=== PATIENT | female | born 1970 | race Caucasian/White ===

== ENCOUNTER 2019-11-15 08:38 | Emergency (ER) | payer SELFPAY ==
[2019-11-15 08:40] VITALS: BP 178/102; PULSE 83; RESP 18; O2SAT 96; BMI 21.5
--- NOTE | 2019-11-15 08:45 | ED_ITS ---
Entered by Jessica Mckenna, acting as scribe for Cheryl Kline MD Nov 15, 2019 08:38 HPI - Back Pain/Injury General: Chief Complaint: Back Pain/Injury Stated Complaint: Back pain Time Seen by Provider: 11/15/19 08:40 Source: patient Mode of arrival: ambulatory Limitations: physical limitation History of Present Illness: HPI Narrative: 49 yo female presents with back pain. pt states this started today while bending and walking at work. pt has a hx of back pain. pt states there is a knot on my spine. pt states walking makes this worse and nothing makes this better. MD elicited complaint: back pain Pertinent past history: prior back pain Timing: constant Severity: moderate Quality: sharp and spasming Location: lumbar spine (knot noted) Radiation: other (R leg) Exacerbating factors: movement and walking Relieving factors: none Context: while lifting Associated symptoms: Reports difficulty walking; Deny abdominal pain, chills, dysuria, fever(s), nausea or vomiting Treatments prior to arrival: heat therapy Work related injury: No Review of Systems Const: Denies: fever, chills, body aches or change in appetite Eyes: Denies: blurry vision or eye discomfort ENMT: Denies: throat pain or dental pain Card: Denies: chest pain Resp: Denies: shortness of breath GI: Denies: abdominal pain, nausea, vomiting or diarrhea : Denies: painful urination Musc: Denies: neck pain Skin/Breast: Denies: rash Neuro: Reports: difficulty walking Psych: Denies: depression Chavo/Lymph: Denies: easy bruising All/Imm: Denies: hives PFSH ED PFSH: Social History Smoking and tobacco status: current every day smoker Physical Exam Const: COMMON NORMALS: no apparent distress, oriented x3 and healthy appearing HENMT: COMMON NORMALS: normocephalic and head/scalp atraumatic HEAD & SCALP: normocephalic and atraumatic Eye: COMMON NORMALS: PERRL and EOMs intact bilaterally PUPIL: Yes PERRL Neck/C-Spine: COMMON NORMALS: full ROM and supple Chest: COMMONS NORMALS: inspection of chest normal and palpation of chest normal Resp: COMMON NORMALS: normal respiratory effort, no retractions, no use of accessory muscles and clear to auscultation bilaterally AUSCULTATION: clear to auscultation bilaterally Cardio: COMMON NORMALS: regular rate, regular rhythm and no murmurs RATE: regular rate RHYTHM: regular rhythm GI: COMMON NORMALS: normal to inspection, nondistended, normoactive bowel sounds, soft to palpation, non-tender and no masses PALPATION: Yes soft Back/Pelvis: OTHER: Tenderness to right lower lumbar region. No midline tenderness. Neuro: COMMON NORMALS: oriented x3, moves all extremities and no focal motor deficits Psych: COMMON NORMALS: mental status grossly normal, thought process normal and cooperative THOUGHT PROCESS: normal thought process Skin: COMMON NORMALS: no rashes or lesions noted and no wounds GENERAL SKIN EXAM: no rashes or lesions noted Course Vital Signs: Vital signs: Vital Signs Pulse Rate 77 11/15/19 09:35 Respiratory Rate 18 11/15/19 09:35 Blood Pressure 133/79 11/15/19 09:35 Pulse Oximetry 93 11/15/19 09:35 MDM - Back Pain/Injury MDM Narrative: Medical decision making narrative: Patient presents with low back pain is likely muscular in origin. Patient is point tender over right lower back. Patient has no midline tenderness. Patient has no signs of epidural abscess or cord compression. Patient given steroids here and prescribed Naprosyn and Robaxin for home and is to ice. Patient is to follow-up with primary care doctor in 3 to 5 days. Discharge Plan Discharge Patient Disposition: Home, Self-Care Clinical Impression: Lumbar back pain Condition: Stable Prescriptions: New Robaxin-750 750 mg tablet 750 mg PO Q6H Qty: 30 RF: 0 EC-Naprosyn 500 mg tablet,delayed release (DR/EC) 500 mg PO BID PRN (Reason: pain) Qty: 20 RF: 0 Discharge Orders: Discharge Order (Routine); Ordered 11/15/19 Ordered By: Cheryl Kline Discharge Diet: Advance as tolerated Discharge Activity: Resume usual activity Patient Instructions: Back Pain (ED) Discharge Date/Time: 11/15/19 09:39 Coding Level of Care Code ED Slot Shift Manager for Chg Fwd Exam Comprehensive The documentation recorded by the Bala castro Bridget Annette, accurately reflects the service I personally performed and the decisions made by Raisa obregon Korby, MD Nov 15, 2019 08:38
--- NOTE | 2019-11-15 08:47 | XR_ITS ---
WS: [id number] XR lumbar spine 2-3V* [id number] REASON FOR EXAM: injury FINDINGS: Degenerated disc changes L5-S1. The vertebral bodies are normal there is no fractures or di slocations seen. No evidence of spondylolysis or spondylolisthesis. XR/XR lumbar spine 2-3V* [id number] IMPRESSION: Degenerated disc changes L5-S1. There is marked fecal stasis throughout the colon.
--- NOTE | 2019-11-15 08:51 | PC.NURSE ---
Patient presents to ER for acute onset of back pain. States she has a history of DDD in her back as well as sciatica. Pain started suddenly this morning with shooting radiation into the right leg. Pain currently rated 10/10. Patient denies any injury or history of back surgery. States she has had injections in the back but it has been >10 years ago.
[2019-11-15 08:57] VITALS: RESP 21
[2019-11-15] MEDS: morphine 4 mg/mL SDV 1 mL IM (08:57)
[2019-11-15] MEDS: dexamethasone 10 mg/mL INJ IM (08:57)
[2019-11-15 09:35] VITALS: BP 133/79; PULSE 77; RESP 18; O2SAT 93
== END 2019-11-15 09:39 | disposition home or self-care (01) ==
PROVIDERS: Emergency Provider Emergency Medicine
DX: M54.5 Low back pain (principal); F17.200 Nicotine dependence, unspecified, uncomplicated
CPT/HCPCS: 72100; 96372; 99281; 99283; J1100; J2270

== ENCOUNTER 2020-05-18 13:16 | Emergency (ER) | payer SELFPAY ==
[2020-05-18 13:22] VITALS: BP 156/78; PULSE 82; RESP 18; TEMP 36.7; O2SAT 97; BMI 24.8
--- NOTE | 2020-05-18 14:48 | ED_ITS ---
HPI - Skin/Abscess/Foreign Bdy General: Chief complaint: Skin/Abscess/Foreign Body Stated complaint: BITE ON HEAD? Time Seen by Provider: 05/18/20 14:12 Source: patient Mode of arrival: ambulatory Limitations: no limitations History of Present Illness: HPI narrative: Patient is a 49-year-old female presents to ED today with complaint of left-sided facial pain and swelling. Stephanie varela tells me approximately 5 days ago she noticed a bump to the top of her left forehead/scalp. Patient states over the past few days she has then noticed swelling above her left eye, left-sided facial pain, and a swollen lymph node in front of her left ear. She is not complaining of pain inside of her ear, discharge, tinnitus, hearing loss. She does not complain of painful eye movements, visual changes/loss, headache, neck pain, facial drooping. She has not been running fevers. She reports no previous history of staph/MRSA. Associated symptoms: Deny chills, fever(s) or nausea Review of Systems Const: Denies: fever(s), chills, body aches, fatigue or malaise Eyes: Reports: other (swelling L superior orbital region); Denies: change in vision, blurry vision, photophobia, eye discomfort, eye discharge, floaters or seeing flashes ENMT: Reports: other ( knot in front of L ear); Denies: throat pain, enlarged tonsils, odynophagia, swelling of lips/tongue, dental pain, ear or mastoid pain, ear discharge, change in hearing, tinnitus, disequilibrium or nasal congestion Card: Denies: chest pain Resp: Denies: dyspnea GI: Denies: nausea Musc: Denies: neck pain Skin/Breast: Reports: new lesions (L forehead) Neuro: Denies: headache(s), numbness in extremities, weakness in extremities or sensory changes PFSH ED PFSH: Social History Smoking and tobacco status: current every day smoker Physical Exam Const: COMMON NORMALS: no acute distress, average body habitus, patient oriented x3, healthy appearing, alert and well nourished GENERAL APPEARANCE: cooperative and in distress (appears uncomfortable) ORIENTATION/CONSCIOUSNESS: Yes oriented to person, Yes oriented to place and Yes oriented to time HENMT: COMMON NORMALS: hearing grossly normal bilaterally, external ears normal (apart from one swollen lymph node), EAC's normal, TM's normal bilaterally, Normal external nose present, Normal nasal mucous membranes and turbinates present, moist oral mucous membranes, oropharynx normal, dentition normal and gingiva normal HEAD IMAGES: 1. small 1.5 erythematous indurated sore/early abscess formation FACE & SINUS: sinuses nontender and face symmetric; no sinus tenderness NOSE: Normal external nose present, Normal nasal mucous membranes and turbinates present and No nasal discharge present EXTERNAL EAR: Yes external ears normal (apart from one swollen lymph node), Yes mastoids normal and Yes periauricular adenopathy EXTERNAL AUDITORY CANAL: EAC's normal TYMPANIC MEMBRANE: TM's normal bilaterally and other (single L pre-auricular lymph node swollen) MOUTH: Normal oral and palatal mucosa present, lip normal and tongue normal THROAT: posterior oropharynx normal, tonsils normal and uvula midline OTHER: patient has TTP of L forehead and L maxillary region Eye: COMMON NORMALS: Equal, round and reactive pupils present, EOMs intact bilaterally, conjunctivae normal and no scleral icterus GENERAL EYE: normal light reflex VISUAL ACUITY: Yes acuity normal VISUAL JOHNSON: No peripheral vision loss CONJUNCTIVA: Yes conjunctivae normal PUPIL: Yes Equal, round and reactive pupils present DIRECT OPHTHALMOSCOPY: Yes normal light reflex OTHER: pt has full painless EOMs; she has soft tissue swelling to L superior orbital region; area does not appear cellulitic at this time; there is no redness/warmth to area Neck/C-Spine: COMMON NORMALS: full ROM, no lymphadenopathy and no meningeal signs Neuro: RUBENS COMA SCALE: document GCS findings [place] coma scale eye opening: Spontaneous [place] coma scale verbal response: Orientated [place] coma scale motor response: Obey commands [place] coma scale total score: 15 COMMON NORMALS: patient oriented x3, CN's II-XII intact bilaterally, moves all extremities, no focal motor deficits and no sensory deficits noted SENSORIUM/ORIENTATION: Yes alert, Yes oriented to person, Yes oriented to place and Yes oriented to time MENINGEAL SIGNS: Yes no meningeal signs CRANIAL NERVES: Yes CN normal except as noted OTHER: no facial nerve palsy; no gaze palsy Course Vital Signs: Vital signs: Vital Signs Temperature 98.1 F 05/18/20 13:22 Pulse Rate 64 05/18/20 16:00 Respiratory Rate 18 05/18/20 16:00 Blood Pressure 149/77 08/19/20 16:00 Pulse Oximetry 97 05/18/20 13:22 MDM - Skin/Abscess/Foreign Bdy MDM Narrative: Medical decision making narrative: pt appears to have sore/early abscess formation to her L upper forehead that for whatever reason has spread downward; she has swelling to L superior orbit but no signs/symptoms of a preseptal or septal cellulitis; she has nerve like tenderness throughout L side of face w/o any neurological deficits/nerve palsy; lesion is not suspicious for shingles; her solitary pre-auricular lymph node is not accompanied by any otic pain, discharge, swelling, hearing loss, tinnitus, etc; at this time I do not feel labs would be overly beneficial in helping diagnose this; emergent imaging would be unlikely to change care; pt given IM abx here and will be placed on Clindamycin and pain medications at home; strict return to ED precautions given Discharge Plan Discharge Patient Disposition: Home Clinical Impression: Cellulitis and abscess of face Condition: Stable Prescriptions: New clindamycin HCl 300 mg capsule 300 mg PO Q6H 7 Days Qty: 28 RF: 0 hydrocodone-acetaminophen 5-325 mg tablet 1 tab PO Q6H PRN (Reason: pain) Qty: 14 RF: 0 No Action Robaxin-750 750 mg tablet 750 mg PO Q6H Qty: 30 RF: 0 EC-Naprosyn 500 mg tablet,delayed release (DR/EC) 500 mg PO BID PRN (Reason: pain) Qty: 20 RF: 0 Discharge Orders: Discharge Order (Routine); Ordered 05/18/20 Ordered By: Hien Crocker Activity Restrictions/Additional Instructions: As discussed begin your medications immediately. You need to return to the emergency department on Saturday if symptoms continue to worsen. You need to return sooner for any firmness surrounding the left eye, visual changes, painful movement of your eyes, facial drooping, worsening swelling, worsening redness/heat, or any other concerns you may have. Discharge Date/Time: 05/18/20 16:00 Coding Level of Care Code ED Multiple Drill Operator for Andreg Fwd Exam Detailed
[2020-05-18] MEDS: clindamycin 150 mg/mL SDV 6 mL 600 MG IM (15:38)
[2020-05-18] MEDS: cefTRIAXone 1,000 MG, lidocaine 1% 2.1 ML in SYRINGE 1 EACH 1 MG IM (15:39)
[2020-05-18 16:00] VITALS: BP 149/77; PULSE 64; RESP 18
== END 2020-05-18 16:00 | disposition home or self-care (01) ==
PROVIDERS: Emergency Provider Physician Assistant
DX: L02.01 Cutaneous abscess of face (principal); L03.211 Cellulitis of face; F17.210 Nicotine dependence, cigarettes, uncomplicated
CPT/HCPCS: 12345; 96365; 96372; 99281; 99283; J0696; J3490

== ENCOUNTER 2020-08-02 16:13 | Emergency (ER) | payer SELFPAY ==
[2020-08-02 16:15] VITALS: BP 167/83; PULSE 78; RESP 18; TEMP 36.8; O2SAT 97; BMI 21.1
--- NOTE | 2020-08-02 16:52 | CTR_ITS ---
PROCEDURE INFORMATION: Exam: CT Abdomen And Pelvis With Contrast Exam date and time: 08/02/2020 5:09 PM Age: 49 years old Clinical indication: Nausea and vomiting; Abdominal pain; Prior surgery; Surgery type: Appy, hyst, , exploratory; Additional info: Abd pain TECHNIQUE: Imaging protocol: Computed tomography of the abdomen and pelvis with intravenous contrast. Radiation optimization: All CT scans at this facility use at least one of these dose optimization techniques: automated exposure control; mA and/or kV adjustment per patient size (includes targeted exams where dose is matched to clinical indication); or iterative reconstruction. Contrast material: OMNI 300; Contrast volume: 75 ml; Contrast route: INTRAVENOUS (IV); COMPARISON: CT abdomen pelvis w con* [id number] 07/17/2015 1:42 PM RADIATION DOSE METRICS: Total DLP (mGy-cm): 245.62 FINDINGS: Liver: Unremarkable.No mass. Gallbladder and bile ducts: Normal. No calcified stones. No ductal dilation. Pancreas: Normal. No ductal dilation. Spleen: Normal. No splenomegaly. Adrenal glands: Normal. No mass. Kidneys and ureters: There is no evidence of hydronephrosis. There is no evidence of renal calcifications. Stomach and bowel: There is diffuse small bowel wall thickening, consistent with infectious, ischemic, or inflammatory enteritis. Moderate diverticulosis is present in the distal colon. The wall of the distal colon is thickened but collapsed. This appearance may reflect lack of distention however mild colitis cannot be excluded. Appendix: There has been an appendectomy. Intraperitoneal space: Unremarkable. No free air. No significant fluid collection. Vasculature: The aorta demonstrates mild atherosclerotic calcification. Lymph nodes: Unremarkable.No enlarged lymph nodes. Urinary bladder: There is nonspecific bladder wall thickening. This may be related to cystitis versus incomplete distention. Reproductive: There has been a hysterectomy. Bones/joints: Unremarkable. No acute fracture. Soft tissues: Unremarkable. CT/CT abdomen pelvis w con* [id number] IMPRESSION: 1. There is nonspecific bladder wall thickening. This may be related to cystitis versus incomplete distention. 2. There is diffuse small bowel wall thickening, consistent with infectious, ischemic, or inflammatory enteritis. 3. The wall of the distal colon is thickened but collapsed. This appearance may reflect lack of distention however mild colitis cannot be excluded. Radiation Dose CTDIVOL = (mGy): DLP = 245.62 (mGy-cm)
--- NOTE | 2020-08-02 17:04 | W.ED.ABDPA2 ---
Documented by User: Bart Enciso DO 08/06/20 10:03 HPI - Abdominal Pain General: Chief Complaint: Abdominal Pain Stated Complaint: stabbing pain in r side Time Seen by Provider: 08/02/20 16:47 History of Present Illness: HPI narrative: 49-year-old female comes in complaining of right-sided flank pain radiating into her back and down into her suprapubic area is been going on for 4 days. She is at nausea vomiting associated with it. Some dysuria no hematuria. She denies any dysuria she denies any diarrhea. She has no history of renal stone she has had frequent UTIs in the past MD elicited complaint: abdominal pain Pertinent past history: past UTI Onset (ago): hour(s) Pain Consistency: constant Location: R flank Quality: cramping and stabbing Radiation: suprapubic Migration to: suprapubic Relieving factors: nothing Associated Symptoms: Reports GI cramping and dysuria; Denies anorexia, belching, bloating, change in bowel habits, change in stool character, chills, coffee ground emesis, constipation, diarrhea, dyspepsia, excessive flatus, fever(s), heartburn, hematochezia, hematuria, hematemesis, fecal incontinence, loose stools, melena, nausea, poor appetite, syncope and vomiting Review of Systems Const: Denies: fever(s) or chills ENMT: Denies: throat pain, ear or mastoid pain, nasal discharge or nasal congestion Card: Denies: syncope Resp: Denies: dyspnea, productive cough or non-productive cough GI: Reports: GI cramping; Denies: nausea, vomiting, hematemesis, coffee ground emesis, heartburn, diarrhea, constipation, bloating, belching, excessive flatus, fecal incontinence, change in bowel habits, change in stool character, hematochezia or melena : Reports: dysuria; Denies: hematuria Skin/Breast: Denies: rash or pruritus PFSH ED PFSH: Surgical History H/O: hysterectomy S/P appendectomy Social History Smoking and tobacco status: current every day smoker Physical Exam Const: COMMON NORMALS: no acute distress GENERAL APPEARANCE: cooperative and comfortable ORIENTATION/CONSCIOUSNESS: Yes awake, Yes oriented to person, Yes oriented to place and Yes oriented to time HENMT: COMMON NORMALS: normocephalic, atraumatic and hearing grossly normal bilaterally HEAD & SCALP: normocephalic and atraumatic Neck/C-Spine: COMMON NORMALS: no JVD Resp: COMMON NORMALS: normal respiratory effort, No retractions, No use of accessory muscles and clear to auscultation bilaterally AUSCULTATION: clear to auscultation bilaterally Cardio: COMMON NORMALS: no JVD, regular rate, regular rhythm and No murmurs present (Cardio) RATE: regular rate RHYTHM: regular rhythm GI: COMMON NORMALS: Soft to palpation and No hepatosplenomegaly present AUSCULTATION: Yes normoactive bowel sounds PALPATION: Yes Soft to palpation, Yes Tenderness to palpation present (GI) Details: RLQ, No Guarding due to palpation present (GI) and Yes No hepatosplenomegaly present Extremity: COMMON NORMALS: normal to inspection, capillary refill normal, no clubbing, cyanosis or edema, no calf tenderness and no pedal edema Neuro: SENSORIUM/ORIENTATION: Yes oriented to person, Yes oriented to place and Yes oriented to time Skin: COMMON NORMALS: no rashes or lesions noted GENERAL SKIN EXAM: no rashes or lesions noted Course Vital Signs: Vital signs: Vital Signs Temperature 98.2 F 08/02/20 16:15 Pulse Rate 68 08/02/20 21:40 Respiratory Rate 18 08/02/20 21:40 Blood Pressure 106/71 08/02/20 21:40 Pulse Oximetry 99 08/02/20 21:40 MDM - Abdominal Pain MDM Narrative: Medical decision making narrative: Care signed out to Dr. Ochoa at change of shift. Lab Data: Labs: Lab Results 08/02/20 08/02/20 08/02/20 Range/Units 17:03 17:03 17:07 WBC 7.3 (4.0-10.0) 10^3/ uL RBC 4.11 (4.1-5.3) 10^6/u L Hgb 14.0 (11.5-15.3) g/dL Hct 41.9 (37.0-47.0) % MCV 101.9 H (81-99) fL MCH 34.1 H (28.0-34.0) pg MCHC 33.4 (30.0-36.0) g/dL RDW 12.2 (12.1-15.1) % Plt Count 314 (130-400) 10^3/c mm MPV 9.8 (7.4-10.4) fL Neut % (Auto) 42.3 % Lymph % (Auto) 47.1 % [place] % (Auto) 6.9 % Eos % (Auto) 3.0 % Baso % (Auto) 0.4 % Neut # (Auto) 3.09 (1.8-7.7) 10^3/u L Lymph # (Auto) 3.4 (0.8-4.8) 10^3/u L [place] # (Auto) 0.5 (0.2-0.9) 10^3/u L Eos # (Auto) 0.2 (0.0-0.8) 10^3/u L Baso # (Auto) 0.0 (0.0-0.1) 10^3/u L Nucleated RBC % (a uto) 0 % Nucleated RBCs # 0.0 /100WBC Sodium (136-145) mmol/L Potassium (3.5-5.1) mmol/L Chloride (98-107) mmol/L Carbon Dioxide (22-29) mmol/L Anion Gap (5-19) BUN (6-20) mg/dL Creatinine (0.5-0.9) mg/dL GFR Calculation (90-130) mL/min Glucose (65-115) mg/dL Calculated Osmolal ity (285-295) mOsm/k g Lactic Acid (0.5-2.2) mmol/L Calcium (8.5-10.5) mg/dL Total Bilirubin (0.15-1.2) mg/dL AST (0-32) U/L ALT (0-33) U/L Alkaline Phosphata se (35-105) IU/L Total Protein (6.6-8.7) g/dL Albumin (3.5-5.2) g/dL Globulin (1.3-4.6) g/dL Lipase (13-60) U/L HCG, Qual Negative (Negative) Urine Color Yellow (Yellow) Urine Appearance Clear (CLEAR) Urine pH 6 (5-7) Ur Specific Gravit y 1.020 (1.005-1.030) Urine Protein Neg (Negative) Urine Glucose (UA) Norm (Normal) Urine Ketones Negative (Negative) Urine Blood Neg (Negative) Urine Nitrate Negative (Negative) Urine Bilirubin Neg (Negative) Urine Urobilinogen Neg (Negative) mg/dL Ur Leukocyte [place] a[place] Negative (Negative) [place] 08/02/20 08/02/20 08/02/20 Range/Units 17:07 18:25 19:56 WBC (4.0-10.0) 10^3/ uL RBC (4.1-5.3) 10^6/u L Hgb (11.5-15.3) g/dL Hct (37.0-47.0) % MCV (81-99) fL MCH (28.0-34.0) pg MCHC (30.0-36.0) g/dL RDW (12.1-15.1) % Plt Count (130-400) 10^3/c mm MPV (7.4-10.4) fL Neut % (Auto) % Lymph % (Auto) % [place] % (Auto) % Eos % (Auto) % Baso % (Auto) % Neut # (Auto) (1.8-7.7) 10^3/u L Lymph # (Auto) (0.8-4.8) 10^3/u L [place] # (Auto) (0.2-0.9) 10^3/u L Eos # (Auto) (0.0-0.8) 10^3/u L Baso # (Auto) (0.0-0.1) 10^3/u L Nucleated RBC % (a uto) % Nucleated RBCs # /100WBC Sodium 140 (136-145) mmol/L Potassium 4.0 (3.5-5.1) mmol/L Chloride 105 (98-107) mmol/L Carbon Dioxide 27 (22-29) mmol/L Anion Gap 12.0 (5-19) BUN 15 (6-20) mg/dL Creatinine 0.8 (0.5-0.9) mg/dL GFR Calculation 76.2 L (90-130) mL/min Glucose 89 (65-115) mg/dL Calculated Osmolal ity 290 (285-295) mOsm/k g Lactic Acid 0.5 (0.5-2.2) mmol/L Calcium 9.6 (8.5-10.5) mg/dL Total Bilirubin 0.3 (0.15-1.2) mg/dL AST 13 (0-32) U/L ALT 8 (0-33) U/L Alkaline Phosphata se 86 (35-105) IU/L Total Protein 7.3 (6.6-8.7) g/dL Albumin 4.9 (3.5-5.2) g/dL Globulin 2.4 (1.3-4.6) g/dL Lipase 153 H (13-60) U/L HCG, Qual (Negative) Urine Color (Yellow) Urine Appearance (CLEAR) Urine pH (5-7) Ur Specific Gravit y (1.005-1.030) Urine Protein (Negative) Urine Glucose (UA) (Normal) Urine Ketones (Negative) Urine Blood (Negative) Urine Nitrate (Negative) Urine Bilirubin (Negative) Urine Urobilinogen (Negative) mg/dL Ur Leukocyte [place] ase (Negative) [place] Cancelled Discharge Plan Discharge Patient Disposition: Home Clinical Impression: Abdominal pain Qualifiers: Abdominal location: generalized Qualified Code(s): R10.84 - Generalized abdominal pain Condition: Stable Prescriptions: New lactulose 10 gram/15 mL solution 10 gm PO DAILY PRN (Reason: constipation) Qty: 237 RF: 0 No Action Celestina's wort 300 mg Tablet 300 mg PO DAILY RF: 0 5-Htp L-Theanine 1 tab PO DAILY RF: 0 Tylenol Extra Strength 500 mg Tablet 1,000 - 2,000 mg PO PRN RF: 0 Discharge Orders: Discharge Order (Routine); Ordered 08/02/20 Ordered By: Nettie Means Discharge Diet: Clear Liquid Discharge Activity: Limit activity as instructed Patient Instructions: Abdominal Pain (ED) Activity Restrictions/Additional Instructions: Please return to the ER immediately for any of the signs or symptoms listed on your discharge instruction sheets, worsening/changing of your symptoms, you are not getting better as quickly as expected, or for ANY other cause or concerns. I have offered to admit you to the hospital to monitor you further for possible developing abdominal problem that could require surgery or even be life-threatening but you have declined. So if your symptoms persist for more than another 8 to 12 hours please return here immediately for recheck and for further evaluation and care. Follow a clear liquid diet at home and advance it as your pain resolves back to your normal diet. Return immediately for fever, vomiting, blood in your stools, increased pain or for any other cause for concern. Discharge Date/Time: 08/02/20 22:54 Sign Out Sign Out Data: Patient Sign Out occurred on 08/02/20 at 18:41. Patient's care was discussed, and care was transferred from to Nettie Means. Coding Level of Care Code ED Radio Station Audio Engineer for Chg Fwd Exam Comprehensive Documented by User: Nettie Means 08/02/20 20:27 HPI - Abdominal Pain General: Chief Complaint: Abdominal Pain Stated Complaint: stabbing pain in r side Time Seen by Provider: 08/02/20 16:47 PFSH ED PFSH: Surgical History H/O: hysterectomy S/P appendectomy Social History Smoking and tobacco status: current every day smoker Course Vital Signs: Vital signs: Vital Signs Temperature 98.2 F 08/02/20 16:15 Pulse Rate 68 08/02/20 21:40 Respiratory Rate 18 08/02/20 21:40 Blood Pressure 106/71 08/02/20 21:40 Pulse Oximetry 99 08/02/20 21:40 MDM - Abdominal Pain MDM Narrative: Medical decision making narrative: 191 -Case turned over to me at change of shift from Dr. Enciso. Please see his note for his history, physical exam and medical decision-making notes. Patient tells me she has had pain for the past 4 days but the past 2 days her pain is become constant. Prior to that it was intermittent. Now it has become constant and waxes and wanes in intensity. Is primarily along the right side of her abdomen. She had associated nausea and vomiting. To this point her labs have returned which show no evidence of elevated white count and only a minimally elevated lipase. CT scan shows nonspecific bladder wall thickening, diffuse small bowel wall thickening of uncertain etiology and possible distal colon thickening. On exam the patient is mildly tender diffusely without any rebound or guarding. Subjectively she complains of more pain along the right side. Patient has had an appendectomy. I am going to go ahead and add a gallbladder ultrasound at this time to rule out any gallbladder etiology as it is seen better with ultrasound and with CT scan. 2016 -patient is feeling better and is ready to go home. She appears as though she has enteritis but based upon lab I cannot say that she is definitively has cystitis. I will put her on Cipro and Flagyl for possible colitis but patient states her primary problem at this time is she feels like she is constipated. I will place her on lactulose, clear liquid diet and Cipro and Flagyl which should address her small bowel wall thickening as well as the possible colitis. I have recommended and offered to watch the patient overnight in the hospital but she declines. She states overall she is feeling better and wants to be discharged home. She agrees to return here in 12 hours if her symptoms have not subsided but at this time I see no signs of peritonitis on exam, she does not have pain out of proportion to exam and she has not vomited and her vital signs are stable with normal labs. Differential Diagnosis: Differential diagnosis abdominal pain: Likely abdominal pain, calculus of kidney, constipation, diverticulitis, gastroenteritis, pancreatitis and small bowel obstruction Lab Data: Attestation: I reviewed the patient's lab results. Labs: Lab Results 08/02/20 08/02/20 08/02/20 Range/Units 17:03 17:03 17:07 WBC 7.3 (4.0-10.0) 10^3/ uL RBC 4.11 (4.1-5.3) 10^6/u L Hgb 14.0 (11.5-15.3) g/dL Hct 41.9 (37.0-47.0) % MCV 101.9 H (81-99) fL MCH 34.1 H (28.0-34.0) pg MCHC 33.4 (30.0-36.0) g/dL RDW 12.2 (12.1-15.1) % Plt Count 314 (130-400) 10^3/c mm MPV 9.8 (7.4-10.4) fL Neut % (Auto) 42.3 % Lymph % (Auto) 47.1 % [place] % (Auto) 6.9 % Eos % (Auto) 3.0 % Baso % (Auto) 0.4 % Neut # (Auto) 3.09 (1.8-7.7) 10^3/u L Lymph # (Auto) 3.4 (0.8-4.8) 10^3/u L [place] # (Auto) 0.5 (0.2-0.9) 10^3/u L Eos # (Auto) 0.2 (0.0-0.8) 10^3/u L Baso # (Auto) 0.0 (0.0-0.1) 10^3/u L Nucleated RBC % (a uto) 0 % Nucleated RBCs # 0.0 /100WBC Sodium (136-145) mmol/L Potassium (3.5-5.1) mmol/L Chloride (98-107) mmol/L Carbon Dioxide (22-29) mmol/L Anion Gap (5-19) BUN (6-20) mg/dL Creatinine (0.5-0.9) mg/dL GFR Calculation (90-130) mL/min Glucose (65-115) mg/dL Calculated Osmolal ity (285-295) mOsm/k g Lactic Acid (0.5-2.2) mmol/L Calcium (8.5-10.5) mg/dL Total Bilirubin (0.15-1.2) mg/dL AST (0-32) U/L ALT (0-33) U/L Alkaline Phosphata se (35-105) IU/L Total Protein (6.6-8.7) g/dL Albumin (3.5-5.2) g/dL Globulin (1.3-4.6) g/dL Lipase (13-60) U/L HCG, Qual Negative (Negative) Urine Color Yellow (Yellow) Urine Appearance Clear (CLEAR) Urine pH 6 (5-7) Ur Specific Gravit y 1.020 (1.005-1.030) Urine Protein Neg (Negative) Urine Glucose (UA) Norm (Normal) Urine Ketones Negative (Negative) Urine Blood Neg (Negative) Urine Nitrate Negative (Negative) Urine Bilirubin Neg (Negative) Urine Urobilinogen Neg (Negative) mg/dL Ur Leukocyte [place] a[place] Negative (Negative) [place] 08/02/20 08/02/20 08/02/20 Range/Units 17:07 18:25 19:56 WBC (4.0-10.0) 10^3/ uL RBC (4.1-5.3) 10^6/u L Hgb (11.5-15.3) g/dL Hct (37.0-47.0) % MCV (81-99) fL MCH (28.0-34.0) pg MCHC (30.0-36.0) g/dL RDW (12.1-15.1) % Plt Count (130-400) 10^3/c mm MPV (7.4-10.4) fL Neut % (Auto) % Lymph % (Auto) % [place] % (Auto) % Eos % (Auto) % Baso % (Auto) % Neut # (Auto) (1.8-7.7) 10^3/u L Lymph # (Auto) (0.8-4.8) 10^3/u L [place] # (Auto) (0.2-0.9) 10^3/u L Eos # (Auto) (0.0-0.8) 10^3/u L Baso # (Auto) (0.0-0.1) 10^3/u L Nucleated RBC % (a uto) % Nucleated RBCs # /100WBC Sodium 140 (136-145) mmol/L Potassium 4.0 (3.5-5.1) mmol/L Chloride 105 (98-107) mmol/L Carbon Dioxide 27 (22-29) mmol/L Anion Gap 12.0 (5-19) BUN 15 (6-20) mg/dL Creatinine 0.8 (0.5-0.9) mg/dL GFR Calculation 76.2 L (90-130) mL/min Glucose 89 (65-115) mg/dL Calculated Osmolal ity 290 (285-295) mOsm/k g Lactic Acid 0.5 (0.5-2.2) mmol/L Calcium 9.6 (8.5-10.5) mg/dL Total Bilirubin 0.3 (0.15-1.2) mg/dL AST 13 (0-32) U/L ALT 8 (0-33) U/L Alkaline Phosphata se 86 (35-105) IU/L Total Protein 7.3 (6.6-8.7) g/dL Albumin 4.9 (3.5-5.2) g/dL Globulin 2.4 (1.3-4.6) g/dL Lipase 153 H (13-60) U/L HCG, Qual (Negative) Urine Color (Yellow) Urine Appearance (CLEAR) Urine pH (5-7) Ur Specific Gravit y (1.005-1.030) Urine Protein (Negative) Urine Glucose (UA) (Normal) Urine Ketones (Negative) Urine Blood (Negative) Urine Nitrate (Negative) Urine Bilirubin (Negative) Urine Urobilinogen (Negative) mg/dL Ur Leukocyte [place] ase (Negative) [place] Cancelled Imaging Data ^: CT Abd/Pel: Radiologist's impression: [place] [address] CT Scan Report Signed Patient: Prachi Bolanos Unit #: [id number] : 1970 Age/Sex: 49 / F ADM Date: 08/02/20 Loc: ER Room/Bed: Attending Dr: Ordering Provider/Ordering MD: Bart Enciso DO Date of Service: 08/02/20 Procedure(s): CT abdomen pelvis w con* [id number] Accession Number(s): [id number] Report Number: [id number] PROCEDURE INFORMATION: Exam: CT Abdomen And Pelvis With Contrast Exam date and time: 08/02/2020 5:09 PM Age: 49 years old Clinical indication: Nausea and vomiting; Abdominal pain; Prior surgery; Surgery type: Appy, hyst, , exploratory; Additional info: Abd pain TECHNIQUE: Imaging protocol: Computed tomography of the abdomen and pelvis with intravenous contrast. Radiation optimization: All CT scans at this facility use at least one of these dose optimization techniques: automated exposure control; mA and/or kV adjustment per patient size (includes targeted exams where dose is matched to clinical indication); or iterative reconstruction. Contrast material: OMNI 300; Contrast volume: 75 ml; Contrast route: INTRAVENOUS (IV); COMPARISON: CT abdomen pelvis w con* [id number] 07/17/2015 1:42 PM RADIATION DOSE METRICS: Total DLP (mGy-cm): 245.62 FINDINGS: Liver: Unremarkable.No mass. Gallbladder and bile ducts: Normal. No calcified stones. No ductal dilation. Pancreas: Normal. No ductal dilation. Spleen: Normal. No splenomegaly. Adrenal glands: Normal. No mass. Kidneys and ureters: There is no evidence of hydronephrosis. There is no evidence of renal calcifications. Stomach and bowel: There is diffuse small bowel wall thickening, consistent with infectious, ischemic, or inflammatory enteritis. Moderate diverticulosis is present in the distal colon. The wall of the distal colon is thickened but collapsed. This appearance may reflect lack of distention however mild colitis cannot be excluded. Appendix: There has been an appendectomy. Intraperitoneal space: Unremarkable. No free air. No significant fluid collection. Vasculature: The aorta demonstrates mild atherosclerotic calcification. Lymph nodes: Unremarkable.No enlarged lymph nodes. Urinary bladder: There is nonspecific bladder wall thickening. This may be related to cystitis versus incomplete distention. Reproductive: There has been a hysterectomy. Bones/joints: Unremarkable. No acute fracture. Soft tissues: Unremarkable. CT/CT abdomen pelvis w con* [id number] IMPRESSION: 1. There is nonspecific bladder wall thickening. This may be related to cystitis versus incomplete distention. 2. There is diffuse small bowel wall thickening, consistent with infectious, ischemic, or inflammatory enteritis. 3. The wall of the distal colon is thickened but collapsed. This appearance may reflect lack of distention however mild colitis cannot be excluded. Radiation Dose CTDIVOL = (mGy): DLP = 245.62 (mGy-cm) Dictated By: Elvie Gallego Signed By: Elvie Gallego Signed Date/Time: 08/02/201726 DD/ 24 US: My impression: Ultrasound gallbladder, tech interpretation -no acute findings. Normal gallbladder. No gallstones or sludge. No wall abnormalities. Common bile duct normal no acute findings. Discharge Plan Discharge Patient Disposition: Home Clinical Impression: Abdominal pain Qualifiers: Abdominal location: generalized Qualified Code(s): R10.84 - Generalized abdominal pain Condition: Stable Prescriptions: New lactulose 10 gram/15 mL solution 10 gm PO DAILY PRN (Reason: constipation) Qty: 237 RF: 0 No Action Celestina's wort 300 mg Tablet 300 mg PO DAILY RF: 0 5-Htp L-Theanine 1 tab PO DAILY RF: 0 Tylenol Extra Strength 500 mg Tablet 1,000 - 2,000 mg PO PRN RF: 0 Discharge Orders: Discharge Order (Routine); Ordered 08/02/20 Ordered By: Nettie Means Discharge Diet: Clear Liquid Discharge Activity: Limit activity as instructed Patient Instructions: Abdominal Pain (ED) Activity Restrictions/Additional Instructions: Please return to the ER immediately for any of the signs or symptoms listed on your discharge instruction sheets, worsening/changing of your symptoms, you are not getting better as quickly as expected, or for ANY other cause or concerns. I have offered to admit you to the hospital to monitor you further for possible developing abdominal problem that could require surgery or even be life-threatening but you have declined. So if your symptoms persist for more than another 8 to 12 hours please return here immediately for recheck and for further evaluation and care. Follow a clear liquid diet at home and advance it as your pain resolves back to your normal diet. Return immediately for fever, vomiting, blood in your stools, increased pain or for any other cause for concern. Discharge Date/Time: 08/02/20 22:54 Sign Out Sign Out Data: Patient Sign Out occurred on 08/02/20 at 18:41. Patient's care was discussed, and care was transferred from to Nettie Means. Coding Level of Care Code ED Radio Station Audio Engineer for Chris Fwagustin Exam Comprehensive
[2020-08-02 17:06] LABS: Add Urine Microscopic? NO
[2020-08-02] MEDS: iohexol 300 mg/mL 100 mL Btl IV (17:10)
[2020-08-02 17:12] LABS: Basophils % 0.4 %; Eosinophils # 0.2 10^3/uL (0.0-0.8); Hematocrit 41.9 % (37.0-47.0); Lymphocytes # 3.4 10^3/uL (0.8-4.8); Lymphocytes % 47.1 %; Mean Corpuscular HGB Conc 33.4 g/dL (30.0-36.0); Mean Corpuscular Hemoglobin 34.1 pg (28.0-34.0); Mean Corpuscular Volume 101.9 fL (81-99); Mean Platelet Volume 9.8 fL (7.4-10.4); Monocytes # 0.5 10^3/uL (0.2-0.9); Monocytes % 6.9 %; Neutrophils # 3.09 10^3/uL (1.8-7.7); Neutrophils % 42.3 %; Nucleated Red Blood Cells % 0 %; Platelet Count 314 10^3/cmm (130-400); Red Blood Count 4.11 10^6/uL (4.1-5.3); Red Cell Distribution Width 12.2 % (12.1-15.1); White Blood Count 7.3 10^3/uL (4.0-10.0)
[2020-08-02 17:15] LABS: Bilirubin Urine Neg (Negative); Blood Urine Neg (Negative); Glucose Urine UA Norm (Normal); Ketones Urine Negative (Negative); Leukocyte Esterase Urine Negative (Negative); Nitrate Urine Negative (Negative); Protein Urine Neg (Negative); Urine Appearance Clear (CLEAR); Urine Color Yellow (Yellow); Urobilinogen Urine Neg (Negative); pH Urine 6 (5-7)
[2020-08-02 17:24] VITALS: RESP 16; O2SAT 98
[2020-08-02] MEDS: morphine 4 mg/mL SDV 1 mL IVP (17:24)
[2020-08-02] MEDS: ondansetron 2 mg/ML SDV 2 mL 4 MG IVP (17:24)
[2020-08-02] MEDS: sodium chloride 0.9% 1,000 ML 999 ML IV ×2 (17:24→18:45)
[2020-08-02 17:32] LABS: Alanine Aminotransferase 8 U/L (0-33); Albumin Level 4.9 g/dL (3.5-5.2); Alkaline Phosphatase 86 IU/L (35-105); Blood Urea Nitrogen 15 mg/dL (6-20); Calcium 9.6 mg/dL (8.5-10.5); Carbon Dioxide 27 mmol/L (22-29); Chloride 105 mmol/L (98-107); Globulin 2.4 g/dL (1.3-4.6); Glomerular Filtration Rate 76.2 mL/min (90-130); Glucose 89 mg/dL (65-115); Lipase 153 U/L (13-60); Osmolality Calculated 290 mOsm/kg (285-295); Sodium 140 mmol/L (136-145); Total Bilirubin 0.3 mg/dL (0.15-1.2); Total Protein 7.3 g/dL (6.6-8.7)
[2020-08-02 18:11] LABS: Aspartate Amino Transferase 13 U/L (0-32)
[2020-08-02 19:02] LABS: Lactic Sepsis W/Reflex 0.5 mmol/L (0.5-2.2)
[2020-08-02 19:07] VITALS: BP 171/82; PULSE 67; RESP 18; O2SAT 99
--- NOTE | 2020-08-02 19:13 | US_ITS ---
WS: [id number] ABDOMINAL ULTRASOUND LIMITED REASON FOR VISIT: Pain TECHNIQUE: Grayscale and Doppler ultrasound examination of the abdomen. FINDINGS: Pancreas: No ductal dilatation, calcification, or mass. Abdominal aorta and IVC: Visualized portions are unremarkable. Liver: Liver measures 19.2 cm in length. No focal lesion identified. Gallbladder: Gallbladder wall thickness measures 0.2 mm. The gallbladder is moderately distended with no calculi identified. Right kidney: Right kidney measures 9.4 cm x 5.4 cm x 4.5 cm. No mass, calculus, or hydronephrosis. US/US gall bladder [id number] IMPRESSION: No significant right upper quadrant abnormality identified.
[2020-08-02 19:18] VITALS: RESP 17
[2020-08-02] MEDS: HYDROmorphone 1 mg/mL INJ 1 mL 0.5 MG IVP (19:18)
[2020-08-02] MEDS: ketorolac 30 mg/mL INJ 10 MG IVP (19:47)
[2020-08-02 20:06] LABS: HCG Qualitative Urine. Negative (Negative)
[2020-08-02 20:22] VITALS: BP 154/86; PULSE 63; RESP 20; O2SAT 99
[2020-08-02 21:40] VITALS: BP 106/71; PULSE 68; RESP 18; O2SAT 99
== END 2020-08-02 22:54 | disposition home or self-care (01) ==
PROVIDERS: Family Medicine; Emergency Provider Emergency Medicine
DX: R10.84 Generalized abdominal pain (principal); F17.210 Nicotine dependence, cigarettes, uncomplicated
CPT/HCPCS: 12345; 36415; 74177; 76705; 80053; 81003; 81025; 83605; 83690; 85025; 96361; 96374; 96375; 96376; 99283; 99284; J0131; J1170; J1885; J2270; J2405; J7030; Q9967

== ENCOUNTER 2020-08-03 13:03 | Emergency (ER) | payer SELFPAY ==
[2020-08-03 13:08] VITALS: BP 186/98; PULSE 90; RESP 16; TEMP 37.4; O2SAT 97; BMI 21.0
[2020-08-03 13:46] VITALS: BP 155/109; PULSE 82; RESP 16; O2SAT 98
--- NOTE | 2020-08-03 13:51 | W.ED.ABDPA2 ---
Documented by User: NORMAN Murdock 08/04/20 10:25 HPI - Abdominal Pain General: Chief Complaint: Abdominal Pain Stated Complaint: sharp ABD pain Time Seen by Provider: 08/03/20 13:48 History of Present Illness: HPI narrative: Patient is a 49-year-old female who comes to the ED with abdominal pain and nausea. Patient was seen here in the ED last night and due to patient's condition she was offered to be admitted for observation decided she would rather go home. Doctor told her to return to the ED if symptoms worsen. Patient says she had continued pain and worsening pain through the night and into today. Patient says symptoms started approximately 5 days ago. She says the pain is constant but then waxes and wanes in severity. Pain located in the right side of abdomen and radiates to right side of back. She says any p.o. intake worsens pain. Patient does state that for the past couple days she has daily hard stools and constipation. Denies any fever, chest pain, chills, shortness of breath, diarrhea, dysuria or hematuria. Associated Symptoms: Reports constipation, nausea and vomiting; Denies chills, diarrhea, dysuria, fever(s), hematochezia and hematuria Review of Systems Const: Denies: fever(s), chills or fatigue Eyes: Denies: change in vision or eye discomfort ENMT: Denies: throat pain, odynophagia, nasal discharge or nasal congestion Card: Denies: chest pain, palpitations, edema, swelling of feet/ankles, dyspnea on exertion or orthopnea Resp: Denies: dyspnea, productive cough or non-productive cough GI: Reports: abdominal pain (Right side of abdomen that radiates to right side of back.), nausea, vomiting and constipation; Denies: diarrhea or hematochezia : Denies: flank pain, dysuria or hematuria Musc: Denies: neck pain, back pain or extremity swelling Skin/Breast: Denies: rash or new lesions Neuro: Denies: headache(s), numbness in extremities or weakness in extremities PFS ED PFSH: Surgical History H/O: hysterectomy S/P appendectomy Social History Smoking and tobacco status: current every day smoker Physical Exam Const: COMMON NORMALS: patient oriented x3 and alert GENERAL APPEARANCE: cooperative; not comfortable (Patient appears uncomfortable and is position due to abdominal pain) HENMT: COMMON NORMALS: normocephalic HEAD & SCALP: normocephalic MOUTH: moist mucous membranes abnormal (mild dehydration) THROAT: posterior oropharynx normal and uvula midline Eye: COMMON NORMALS: Equal, round and reactive pupils present PUPIL: Yes Equal, round and reactive pupils present Neck/C-Spine: COMMON NORMALS: supple GENERAL: Yes normal visual inspection Resp: COMMON NORMALS: normal respiratory effort, No retractions, No use of accessory muscles and clear to auscultation bilaterally AUSCULTATION: clear to auscultation bilaterally Cardio: COMMON NORMALS: regular rate, regular rhythm, S1 normal heart sound present, S2 normal heart sound present, No gallops present (Cardio), No clicks present (Cardio), No murmurs present (Cardio) and Peripheral pulses 2+ throughout RATE: regular rate RHYTHM: regular rhythm HEART SOUNDS: S1 normal heart sound present and S2 normal heart sound present PERIPHERAL PULSES: Peripheral pulses 2+ throughout GI: COMMON NORMALS: Normal to inspection, nondistended, normoactive bowel sounds present, Soft to palpation and no masses PALPATION: Yes Soft to palpation and Yes Tenderness to palpation present (GI) Details: RLQ and RUQ : BLADDER/KIDNEY EXAM: Yes CVA tenderness on the right Back/Pelvis: GENERAL BACK: Yes CVA tenderness Extremity: COMMON NORMALS: normal to inspection and no pedal edema Neuro: COMMON NORMALS: patient oriented x3 SENSORIUM/ORIENTATION: Yes alert GAIT: Yes Normal gait present Skin: GENERAL SKIN EXAM: dry skin Course Reevaluation(s): Reevaluation #1: Patient's pain and nausea has improved with IV meds. Time: 15:30 Vital Signs: Vital signs: Vital Signs Temperature 99.3 F 08/03/20 13:08 Pulse Rate 64 08/03/20 17:51 Respiratory Rate 17 08/03/20 17:51 Blood Pressure 159/79 08/03/20 17:51 Pulse Oximetry 97 08/03/20 17:51 MDM - Abdominal Pain MDM Narrative: Medical decision making narrative: Patient care was transferred over to Jamey Rader NP. I told him that lactic lab is pending and CT of the abdomen is pending. Once results come back talk with Dr. Kline about further management. Lab Data: Attestation: I reviewed the patient's lab results. Labs: Lab Results 08/03/20 08/03/20 Range/Units 14:09 14:09 WBC 5.8 (4.0-10.0) 10^3/ uL RBC 3.85 L (4.1-5.3) 10^6/u L Hgb 13.3 (11.5-15.3) g/dL Hct 39.9 (37.0-47.0) % MCV 103.6 H (81-99) fL MCH 34.5 H (28.0-34.0) pg MCHC 33.3 (30.0-36.0) g/dL RDW 12.2 (12.1-15.1) % Plt Count 279 (130-400) 10^3/c mm MPV 9.9 (7.4-10.4) fL Neut % (Auto) 51.4 % Lymph % (Auto) 40.0 % [place] % (Auto) 6.4 % Eos % (Auto) 1.2 % Baso % (Auto) 0.7 % Neut # (Auto) 2.99 (1.8-7.7) 10^3/u L Lymph # (Auto) 2.3 (0.8-4.8) 10^3/u L [place] # (Auto) 0.4 (0.2-0.9) 10^3/u L Eos # (Auto) 0.1 (0.0-0.8) 10^3/u L Baso # (Auto) 0.0 (0.0-0.1) 10^3/u L Nucleated RBC % (a uto) 0 % Nucleated RBCs # 0.0 /100WBC Sodium 142 (136-145) mmol/L Potassium 4.0 (3.5-5.1) mmol/L Chloride 109 H (98-107) mmol/L Carbon Dioxide 24 (22-29) mmol/L Anion Gap 13.0 (5-19) BUN 9 (6-20) mg/dL Creatinine 0.5 (0.5-0.9) mg/dL GFR Calculation 131.1 H (90-130) mL/min Glucose 100 (65-115) mg/dL Calculated Osmolal ity 293 (285-295) mOsm/k g Calcium 9.1 (8.5-10.5) mg/dL Total Bilirubin 0.3 (0.15-1.2) mg/dL AST 13 (0-32) U/L ALT 7 (0-33) U/L Alkaline Phosphata se 79 (35-105) IU/L Total Protein 6.9 (6.6-8.7) g/dL Albumin 4.4 (3.5-5.2) g/dL Globulin 2.5 (1.3-4.6) g/dL Lipase 47 (13-60) U/L Discharge Plan Discharge Patient Disposition: Home Clinical Impression: Abdominal pain Qualifiers: Abdominal location: generalized Qualified Code(s): R10.84 - Generalized abdominal pain Condition: Stable Prescriptions: No Action Azure's wort 300 mg Tablet 300 mg PO DAILY RF: 0 lactulose 10 gram/15 mL solution 10 gm PO DAILY PRN (Reason: constipation) Qty: 237 RF: 0 5-Htp L-Theanine 1 tab PO DAILY RF: 0 Tylenol Extra Strength 500 mg Tablet 1,000 - 2,000 mg PO PRN RF: 0 Discharge Orders: Discharge Order (Routine); Ordered 08/03/20 Ordered By: Jamey Rader Discharge Diet: Advance as tolerated Discharge Activity: Increase activity as tolerated Patient Instructions: Abdominal Pain (ED) Activity Restrictions/Additional Instructions: Follow-up with medical provider as directed. Take medications as prescribed. Return to the ER or your medical provider if condition worsens. Please read and understand discharge instructions. If any questions ask please. Follow-up with your family medical provider if no improvement noted Discharge Date/Time: 08/03/20 17:53 Coding Level of Care Code ED Digital Strategy Specialist for Chg Fwd Exam Comprehensive Documented by User: GEO West 08/03/20 17:44 HPI - Abdominal Pain General: Chief Complaint: Abdominal Pain Stated Complaint: sharp ABD pain Time Seen by Provider: 08/03/20 13:48 PFSH ED PFSH: Surgical History H/O: hysterectomy S/P appendectomy Social History Smoking and tobacco status: current every day smoker Course Vital Signs: Vital signs: Vital Signs Temperature 99.3 F 08/03/20 13:08 Pulse Rate 64 08/03/20 17:51 Respiratory Rate 17 08/03/20 17:51 Blood Pressure 159/79 08/03/20 17:51 Pulse Oximetry 97 08/03/20 17:51 MDM - Abdominal Pain MDM Narrative: Medical decision making narrative: Discussed case with Dr. Raisa briseno with patient to go home based on lab and radiology. Lab Data: Labs: Lab Results 08/03/20 08/03/20 Range/Units 14:09 14:09 WBC 5.8 (4.0-10.0) 10^3/ uL RBC 3.85 L (4.1-5.3) 10^6/u L Hgb 13.3 (11.5-15.3) g/dL Hct 39.9 (37.0-47.0) % MCV 103.6 H (81-99) fL MCH 34.5 H (28.0-34.0) pg MCHC 33.3 (30.0-36.0) g/dL RDW 12.2 (12.1-15.1) % Plt Count 279 (130-400) 10^3/c mm MPV 9.9 (7.4-10.4) fL Neut % (Auto) 51.4 % Lymph % (Auto) 40.0 % [place] % (Auto) 6.4 % Eos % (Auto) 1.2 % Baso % (Auto) 0.7 % Neut # (Auto) 2.99 (1.8-7.7) 10^3/u L Lymph # (Auto) 2.3 (0.8-4.8) 10^3/u L [place] # (Auto) 0.4 (0.2-0.9) 10^3/u L Eos # (Auto) 0.1 (0.0-0.8) 10^3/u L Baso # (Auto) 0.0 (0.0-0.1) 10^3/u L Nucleated RBC % (a uto) 0 % Nucleated RBCs # 0.0 /100WBC Sodium 142 (136-145) mmol/L Potassium 4.0 (3.5-5.1) mmol/L Chloride 109 H (98-107) mmol/L Carbon Dioxide 24 (22-29) mmol/L Anion Gap 13.0 (5-19) BUN 9 (6-20) mg/dL Creatinine 0.5 (0.5-0.9) mg/dL GFR Calculation 131.1 H (90-130) mL/min Glucose 100 (65-115) mg/dL Calculated Osmolal ity 293 (285-295) mOsm/k g Calcium 9.1 (8.5-10.5) mg/dL Total Bilirubin 0.3 (0.15-1.2) mg/dL AST 13 (0-32) U/L ALT 7 (0-33) U/L Alkaline Phosphata se 79 (35-105) IU/L Total Protein 6.9 (6.6-8.7) g/dL Albumin 4.4 (3.5-5.2) g/dL Globulin 2.5 (1.3-4.6) g/dL Lipase 47 (13-60) U/L Discharge Plan Discharge Patient Disposition: Home Clinical Impression: Abdominal pain Qualifiers: Abdominal location: generalized Qualified Code(s): R10.84 - Generalized abdominal pain Condition: Stable Prescriptions: No Action Azure's wort 300 mg Tablet 300 mg PO DAILY RF: 0 lactulose 10 gram/15 mL solution 10 gm PO DAILY PRN (Reason: constipation) Qty: 237 RF: 0 5-Htp L-Theanine 1 tab PO DAILY RF: 0 Tylenol Extra Strength 500 mg Tablet 1,000 - 2,000 mg PO PRN RF: 0 Discharge Orders: Discharge Order (Routine); Ordered 08/03/20 Ordered By: Jamey Rader Discharge Diet: Advance as tolerated Discharge Activity: Increase activity as tolerated Patient Instructions: Abdominal Pain (ED) Activity Restrictions/Additional Instructions: Follow-up with medical provider as directed. Take medications as prescribed. Return to the ER or your medical provider if condition worsens. Please read and understand discharge instructions. If any questions ask please. Follow-up with your family medical provider if no improvement noted Discharge Date/Time: 08/03/20 17:53 Coding Level of Care Code ED Digital Strategy Specialist for Chg Fwd Exam Comprehensive
[2020-08-03] MEDS: sodium chloride 0.9% 1,000 ML 999 ML IV (14:14)
[2020-08-03 14:22] LABS: Basophils % 0.7 %; Eosinophils # 0.1 10^3/uL (0.0-0.8); Eosinophils % 1.2 %; Hematocrit 39.9 % (37.0-47.0); Hemoglobin 13.3 g/dL (11.5-15.3); Lymphocytes # 2.3 10^3/uL (0.8-4.8); Mean Corpuscular HGB Conc 33.3 g/dL (30.0-36.0); Mean Corpuscular Hemoglobin 34.5 pg (28.0-34.0); Mean Corpuscular Volume 103.6 fL (81-99); Mean Platelet Volume 9.9 fL (7.4-10.4); Monocytes # 0.4 10^3/uL (0.2-0.9); Monocytes % 6.4 %; Neutrophils # 2.99 10^3/uL (1.8-7.7); Neutrophils % 51.4 %; Nucleated Red Blood Cells % 0 %; Platelet Count 279 10^3/cmm (130-400); Red Blood Count 3.85 10^6/uL (4.1-5.3); Red Cell Distribution Width 12.2 % (12.1-15.1); White Blood Count 5.8 10^3/uL (4.0-10.0)
[2020-08-03 14:46] LABS: Alanine Aminotransferase 7 U/L (0-33); Albumin Level 4.4 g/dL (3.5-5.2); Alkaline Phosphatase 79 IU/L (35-105); Aspartate Amino Transferase 13 U/L (0-32); Blood Urea Nitrogen 9 mg/dL (6-20); Calcium 9.1 mg/dL (8.5-10.5); Carbon Dioxide 24 mmol/L (22-29); Chloride 109 mmol/L (98-107); Globulin 2.5 g/dL (1.3-4.6); Glomerular Filtration Rate 131.1 mL/min (90-130); Glucose 100 mg/dL (65-115); Lipase 47 U/L (13-60); Osmolality Calculated 293 mOsm/kg (285-295); Sodium 142 mmol/L (136-145); Total Bilirubin 0.3 mg/dL (0.15-1.2); Total Protein 6.9 g/dL (6.6-8.7)
[2020-08-03 14:52] VITALS: RESP 17
[2020-08-03] MEDS: morphine 4 mg/mL SDV 1 mL IVP (14:52)
[2020-08-03] MEDS: ondansetron 2 mg/ML SDV 2 mL 4 MG IVP (14:52)
[2020-08-03 14:55] VITALS: BP 156/90; PULSE 77; RESP 16; O2SAT 96
--- NOTE | 2020-08-03 16:00 | PC.NURSE ---
UA collected and sent to lab
--- NOTE | 2020-08-03 16:59 | CTR_ITS ---
PROCEDURE INFORMATION: Exam: CT Abdomen And Pelvis With Contrast Exam date and time: 08/03/2020 5:08 PM Age: 49 years old Clinical indication: Nausea and vomiting; Abdominal pain; Localized; Right; Prior surgery; Surgery type: Appy, hyst, exploratory; Additional info: Abdom pain TECHNIQUE: Imaging protocol: Computed tomography of the abdomen and pelvis with intravenous contrast. Radiation optimization: All CT scans at this facility use at least one of these dose optimization techniques: automated exposure control; mA and/or kV adjustment per patient size (includes targeted exams where dose is matched to clinical indication); or iterative reconstruction. Contrast material: OMNI 300; Contrast volume: 75 ml; Contrast route: INTRAVENOUS (IV); COMPARISON: CT abdomen pelvis w con* [id number] 08/02/2020 5:08 PM RADIATION DOSE METRICS: Total DLP (mGy-cm): 223.93 FINDINGS: Lungs: Mild dependent atelectasis at the lung bases. Liver: The liver is unremarkable in appearance. Gallbladder and bile ducts: Dense fluid in the gallbladder consistent with excreted contrast material from previous IV contrast administration. No gallstones demonstrated. No gallbladder wall thickening. Pancreas: The pancreas is normal in appearance. Spleen: The spleen is normal in size and appearance. Adrenal glands: The adrenal glands appear within normal limits. Kidneys and ureters: The kidneys are normal in morphology. No hydronephrosis. No solid mass. Stomach and bowel: Stomach is empty but appears grossly unremarkable. Mild mural thickening of the proximal small bowel. No small bowel obstruction. Minimal diverticulosis of the colon. Mild mural thickening of the transverse, descending and sigmoid portions of the colon. This may be a spurious finding secondary to underdistention, or may indicate mild nonspecific colitis. Appendix: No evidence of appendicitis. Intraperitoneal space: No free air. No significant fluid collection. Vasculature: The aorta is atherosclerotic. No aortic aneurysm. Lymph nodes: No pathologically enlarged lymph nodes are demonstrated. Urinary bladder: Unremarkable as visualized. Reproductive: The uterus is not visualized, consistent with hysterectomy. Bones/joints: No fracture or other acute osseous abnormality. Soft tissues: Unremarkable. CT/CT abdomen pelvis w con* [id number] IMPRESSION: 1. Mild mural thickening of the proximal small bowel. No small bowel obstruction. This is unchanged from 08/02/2020. 2. Mild mural thickening of the transverse, descending and sigmoid portions of the colon. This may be a spurious finding secondary to underdistention, or may indicate mild nonspecific colitis. The ascending colon appears unremarkable. This is a new finding when compared to 08/02/2020. Radiation Dose CTDIVOL = (mGy): DLP = 223.93 (mGy-cm)
[2020-08-03] MEDS: iohexol 300 mg/mL 100 mL Btl IV (17:19)
[2020-08-03 17:51] VITALS: BP 159/79; PULSE 64; RESP 17; O2SAT 97
== END 2020-08-03 17:53 | disposition home or self-care (01) ==
PROVIDERS: Physician Assistant; Emergency Provider Nurse Practitioner Family
DX: R10.84 Generalized abdominal pain (principal); F17.210 Nicotine dependence, cigarettes, uncomplicated
CPT/HCPCS: 12345; 74177; 80053; 83690; 85025; 96361; 96374; 96375; 99283; J2270; J2405; J7030; Q9967

== ENCOUNTER 2020-12-16 11:43 | Emergency (ER) | payer SELFPAY ==
[2020-12-16 12:19] VITALS: BP 138/79; PULSE 61; RESP 18; TEMP 36.6; O2SAT 98; BMI 21.0
--- NOTE | 2020-12-16 13:14 | XR_ITS ---
WS: [id number] Left knee, 3 views, 12/16/2020 Clinical Data: knee pain Comparison: Left knee, 12/16/2014. Findings: No fractures or dislocations are seen. The joint spaces are normal. The patella is intact. The soft t issues are unremarkable. XR/XR knee LT 3V* [id number] Impression: Negative left knee.
--- NOTE | 2020-12-16 13:51 | W.ED.EXTPRO ---
HPI - Extremity Problem General: Chief complaint: Extremity Injury, Lower Stated complaint: L KNEE PAIN Time Seen by Provider: 12/16/20 13:44 History of Present Illness: HPI Narrative: History of chronic left knee pain has been more acute the last few days. Patient had her hinged knee brace still needs another one. MD Complaint: joint pain Onset (ago): year(s) Pain Consistency: intermittent Location: left and knee Severity scale (1-10): 4 Quality: aching Radiation: none Relieving factors: immobilization Exacerbating factors: range of motion and weight bearing Associated symptoms: Reports no associated symptoms; Deny fever(s) Review of Systems Const: Denies: fever(s) or chills Musc: Reports: joint pain (Left knee no known recent injury) Psych: Denies: anxiety PFSH ED PFSH: Surgical History H/O: hysterectomy S/P appendectomy Social History Smoking and tobacco status: current every day smoker Physical Exam Const: COMMON NORMALS: no acute distress Extremity: LEFT LOWER EXTREMITY: Yes knee joint (Pain with palpation no swelling no erythema noted has full range of motion.) Psych: COMMON NORMALS: mental status grossly normal Course Vital Signs: Vital signs: Vital Signs Temperature 97.9 F 12/16/20 12:19 Pulse Rate 61 12/16/20 12:19 Respiratory Rate 18 12/16/20 12:19 Blood Pressure 138/79 12/16/20 12:19 Pulse Oximetry 98 12/16/20 12:19 Discharge Plan Discharge Patient Disposition: Home Clinical Impression: Chronic knee pain Qualifiers: Laterality: left Qualified Code(s): M25.562 - Pain in left knee Condition: Stable Prescriptions: No Action [place]'s wort 300 mg Tablet 300 mg PO DAILY RF: 0 lactulose 10 gram/15 mL solution 10 gm PO DAILY PRN (Reason: constipation) Qty: 237 RF: 0 5-Htp L-Theanine 1 tab PO DAILY RF: 0 Tylenol Extra Strength 500 mg Tablet 1,000 - 2,000 mg PO PRN RF: 0 Discharge Orders: Discharge ED (Routine); Ordered 12/16/20 Ordered By: Jamey Rader Discharge Diet: Usual diet Discharge Activity: Increase activity as tolerated Patient Instructions: Knee Pain (ED) Activity Restrictions/Additional Instructions: Can take NSAIDs for pain. We will have her prescription for a hinged knee brace. Follow-up your family medical provider if no significant provement. Coding Level of Care Code ED Belt And Link Assembly Supervisor for Chris Fwd Exam Expanded Problem Focused
== END 2020-12-16 13:55 | disposition home or self-care (01) ==
PROVIDERS: Emergency Provider Nurse Practitioner Family
DX: G89.29 Other chronic pain (principal); M25.562 Pain in left knee; F17.210 Nicotine dependence, cigarettes, uncomplicated
CPT/HCPCS: 73562; 99282

== ENCOUNTER 2021-02-06 13:25 | Emergency (ER) | payer SELFPAY ==
[2021-02-06 14:22] VITALS: BP 136/91; PULSE 71; RESP 18; TEMP 36.7; O2SAT 98; BMI 23.0
[2021-02-06 16:33] VITALS: BP 146/89; PULSE 62; RESP 18; O2SAT 97
--- NOTE | 2021-02-06 16:59 | XRR_ITS ---
PROCEDURE INFORMATION: Exam: XR Right Elbow Exam date and time: 02/06/2021 5:01 PM Age: 50 years old Clinical indication: Pain; Elbow; Right TECHNIQUE: Imaging protocol: XR Right elbow. Views: 3 or more views. COMPARISON: No relevant prior studies available. FINDINGS: Bones/joints: Normal. Soft tissues: Normal. XR/XR elbow RT min 3V* [id number] IMPRESSION: No acute findings.
[2021-02-06 17:00] VITALS: PULSE 65
--- NOTE | 2021-02-06 17:23 | W.ED.EXTPRO ---
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 Is been going on getting progressively worse over the last week. To the point where pretty much anything she does with that right hand or bending at the elbow causes discomfort. She cannot recall any specific trauma or fall. She states she feels like the elbow itself is swollen. MD Complaint: joint swelling and joint pain Onset (ago): week(s) (1) Pain Consistency: constant Location: right and upper extremity Quality: burning and sharp Radiation: distal Relieving factors: immobilization Exacerbating factors: range of motion and palpation Associated symptoms: Deny arthralgias, chest pain, fever(s), myalgias, rash or short of breath Review of Systems Const: Denies: fever(s) ENMT: Denies: throat pain, ear or mastoid pain, nasal discharge or nasal congestion Card: Denies: chest pain Resp: Denies: dyspnea, productive cough or non-productive cough GI: Denies: abdominal pain, nausea, vomiting, hematemesis, coffee ground emesis, diarrhea, constipation, bloating, hematochezia or melena : Denies: flank pain, difficulty voiding, dysuria, urinary frequency or urinary urgency Skin/Breast: Denies: rash PFSH ED PFSH: Surgical History H/O: hysterectomy S/P appendectomy Social History Smoking and tobacco status: current every day smoker Physical Exam Const: COMMON NORMALS: no acute distress GENERAL APPEARANCE: cooperative and comfortable ORIENTATION/CONSCIOUSNESS: Yes awake, Yes oriented to person, Yes oriented to place and Yes oriented to time HENMT: COMMON NORMALS: normocephalic and atraumatic HEAD & SCALP: normocephalic and atraumatic Neck/C-Spine: COMMON NORMALS: no JVD Resp: COMMON NORMALS: normal respiratory effort, No retractions, No use of accessory muscles and clear to auscultation bilaterally AUSCULTATION: clear to auscultation bilaterally Cardio: COMMON NORMALS: no JVD, regular rate, regular rhythm and No murmurs present (Cardio) RATE: regular rate RHYTHM: regular rhythm GI: COMMON NORMALS: Soft to palpation and No hepatosplenomegaly present AUSCULTATION: Yes normoactive bowel sounds PALPATION: Yes Soft to palpation, No Tenderness to palpation present (GI), No Guarding due to palpation present (GI) and Yes No hepatosplenomegaly present Extremity: COMMON NORMALS: normal to inspection, capillary refill normal, no clubbing, cyanosis or edema, no calf tenderness and no pedal edema NARRATIVE EXTREMITY EXAM: Was a tenderness over the medial lateral epicondyles on the right hand. Neuro: SENSORIUM/ORIENTATION: Yes oriented to person, Yes oriented to place and Yes oriented to time Skin: COMMON NORMALS: no rashes or lesions noted GENERAL SKIN EXAM: no rashes or lesions noted Course Vital Signs: Vital signs: Vital Signs Temperature 98.9 F 02/06/21 17:59 Pulse Rate 61 02/06/21 17:59 Respiratory Rate 18 02/06/21 17:59 Blood Pressure 146/89 02/06/21 17:59 Pulse Oximetry 97 02/06/21 17:59 MDM - Extremity (Nontraumatic) MDM Narrative: Medical decision making narrative: Clinically patient appears to have a medial lateral epicondylitis consistent with a drop in her complaint of activities a job exacerbated significantly. We will start her on anti-inflammatories have her use restricted form and follow-up with Ortho. Discharge Plan Discharge Patient Disposition: Home Clinical Impression: Epicondylitis, lateral, right, Medial epicondylitis, right elbow Condition: Stable Prescriptions: New diclofenac sodium 75 mg tablet,delayed release (DR/EC) 75 mg PO Q12H PRN (Reason: pain) Qty: 20 RF: 0 No Action acetaminophen [Tylenol Extra Strength] 500 mg Tablet 1,000 - 2,000 mg PO PRN RF: 0 One A Day Vitamin 1 tab PO DAILY RF: 0 Vitamin B-12 1 tab PO DAILY RF: 0 Discharge Orders: Discharge ED (Routine); Ordered 02/06/21 Ordered By: Bart Enciso Discharge Diet: Usual diet Discharge Activity: Limit activity as instructed Patient Instructions: Opioid Safety Activity Restrictions/Additional Instructions: Case management will call make an appointment with you for the orthopedic physician's office. Use a restrictive tennis elbow band on the right forearm wear anytime you are up and awake you may take it off at night. Diclofenac as needed. Do not lift or twist more than 5 pounds occasionally throughout the day. Coding Level of Care Code ED Cathode Ray Tube Assembler for Chris Wills
[2021-02-06 17:59] VITALS: BP 146/89; PULSE 61; RESP 18; TEMP 37.2; O2SAT 97
== END 2021-02-06 18:02 | disposition home or self-care (01) ==
PROVIDERS: Emergency Provider Family Medicine
DX: M77.11 Lateral epicondylitis, right elbow (principal); M77.01 Medial epicondylitis, right elbow; F17.210 Nicotine dependence, cigarettes, uncomplicated
CPT/HCPCS: 73080; 99282

== ENCOUNTER → 2021-10-18 11:49 | Outpatient (BNVA) | payer BC, SELFPAY | PROVIDERS: Visit Provider Nurse Practitioner Family | DX: E03.9 Hypothyroidism, unspecified (principal); I10 Essential (primary) hypertension; J44.9 Chronic obstructive pulmonary disease, unspecified; R07.9 Chest pain, unspecified; R00.2 Palpitations; R55 Syncope and collapse; N95.1 Menopausal and female climacteric states; F41.0 Panic disorder [episodic paroxysmal anxiety]; E53.8 Deficiency of other specified B group vitamins; R94.31 Abnormal electrocardiogram [ECG] [EKG]; F41.9 Anxiety disorder, unspecified; F33.9 Major depressive disorder, recurrent, unspecified; G47.00 Insomnia, unspecified; R63.0 Anorexia; R63.4 Abnormal weight loss; G43.909 Migraine, unspecified, not intractable, without status migrainosus | CPT/HCPCS: 80053; 80061; 82306; 82607; 84443 ==

== ENCOUNTER 2021-12-25 10:45 | Emergency (ER) | payer BC, SELFPAY ==
--- NOTE | 2021-12-25 11:05 | XR_ITS ---
WS: [id number] Exam: XR hip RT 2-3V wo/w pel* [id number] Date/Time of Exam: 12/25/2021 11:43 AM Reason For Exam: R hip pain No acute fracture or dislocation. [id number] degenerative change of the joint compartment. Norm al soft tissues. XR/XR hip RT 2-3V wo/w pel* [id number] IMPRESSION: 1. No acute fracture. Degenerative changes.
[2021-12-25 11:14] VITALS: BP 121/79; PULSE 73; RESP 20; TEMP 36.9; O2SAT 98; BMI 20.1
--- NOTE | 2021-12-25 11:33 | ED_ITS ---
HPI - Fall General: Chief Complaint: Fall Stated Complaint: Fell 2x landed on rt hip Time Seen by Provider: 12/25/21 11:32 History of Present Illness: Patient is a 51-year-old female comes to the ED with right hip pain after fall. Patient says that yesterday she fell twice landing on her right hip. The first time she fell, she tripped an landed on a wooden board with her right hip. Later that day she tripped over her dog dog and fell on wooden porch landing on right hip. Denies any head trauma or loss of consciousness. Patient is not on any blood thinners. Her pain is all in her right hip and and described as sharp. She rates it currently a 10 out of 10. She has not taken anything for pain before coming to the ED. Associated symptoms-after fall: Denies abdominal pain, chest pain, headache(s), hematuria or neck pain Review of Systems Const: Denies: fever(s), chills or fatigue Eyes: Denies: change in vision or eye discomfort ENMT: Denies: throat pain, odynophagia, nasal discharge or nasal congestion Card: Denies: chest pain, palpitations, edema, swelling of feet/ankles, dyspnea on exertion or orthopnea Resp: Denies: dyspnea, productive cough or non-productive cough GI: Denies: abdominal pain, nausea, vomiting, diarrhea, constipation or hematochezia : Denies: flank pain, dysuria or hematuria Musc: Reports: extremity pain (right hip); Denies: neck pain, back pain or extremity swelling Skin/Breast: Denies: rash or new lesions Neuro: Denies: headache(s), numbness in extremities or weakness in extremities PFS ED PFSH: Medical History No pertinent family history Surgical History H/O: hysterectomy S/P appendectomy Social History Smoking and tobacco status: current every day smoker Physical Exam Const: COMMON NORMALS: no acute distress, patient oriented x3 and alert GENERAL APPEARANCE: cooperative and comfortable HENMT: COMMON NORMALS: normocephalic HEAD & SCALP: normocephalic MOUTH: Normal oral and palatal mucosa present THROAT: posterior oropharynx normal and uvula midline Neck/C-Spine: COMMON NORMALS: supple GENERAL: Yes normal visual inspection Resp: COMMON NORMALS: normal respiratory effort, No retractions, No use of accessory muscles and clear to auscultation bilaterally AUSCULTATION: clear to auscultation bilaterally Cardio: COMMON NORMALS: regular rate, regular rhythm, S1 normal heart sound present, S2 normal heart sound present, No gallops present (Cardio), No clicks present (Cardio), No murmurs present (Cardio) and Peripheral pulses 2+ throughout RATE: regular rate RHYTHM: regular rhythm HEART SOUNDS: S1 normal heart sound present and S2 normal heart sound present PERIPHERAL PULSES: Peripheral pulses 2+ throughout GI: COMMON NORMALS: Normal to inspection, nondistended, normoactive bowel sounds present, Soft to palpation, non-tender and no masses PALPATION: Yes Soft to palpation : COMMON NORMALS: Yes no CVA tenderness BLADDER/KIDNEY EXAM: Yes no CVA tenderness Back/Pelvis: COMMON NORMALS: no CVA tenderness Extremity: COMMON NORMALS: normal to inspection NARRATIVE EXTREMITY EXAM: Lateral right hip tenderness to palpation. No visible deformity to right leg seen. Neuro: COMMON NORMALS: patient oriented x3 and moves all extremities SENSORIUM/ORIENTATION: Yes alert Skin: GENERAL SKIN EXAM: dry skin Course Vital Signs: Vital signs: Vital Signs Temperature 98.4 F 12/25/21 11:14 Pulse Rate 73 12/25/21 11:14 Respiratory Rate 20 H 12/25/21 11:14 Blood Pressure 121/79 12/25/21 11:14 Pulse Oximetry 98 12/25/21 11:14 MDM - Fall Medical Decision Making Patient is a 51-year-old female comes to the ED with right hip pain after having a fall. Vital stable. No visible deformity to right leg seen. She is some palpable tenderness to the lateral aspect of the right hip. X-ray of right hip showed no acute fractures or findings. Patient diagnosed with right hip contusion and discharged home with Celebrex for pain. Return ED precautions given. Follow-up with PCP in the next 7 to 10 days reevaluation. Patient understood and agree with plan. Lab Data Radiology Impressions Hip/Pelvis X-Ray 12/25/21 11:05 IMPRESSION: 1. No acute fracture. Degenerative changes. Discharge Plan Discharge Patient Disposition: Home Clinical Impression: Contusion of right hip and thigh Qualifiers: Encounter type: initial encounter Qualified Code(s): S70.01XA - Contusion of right hip, initial encounter Condition: Stable Prescriptions: New celecoxib 100 mg capsule 100 mg PO BID PRN (Reason: pain) Qty: 20 0RF No Action lisinopril 5 mg tablet 5 mg PO DAILY Qty: 30 3RF nitroglycerin 0.4 mg tablet, sublingual 0.4 mg sublingual Q5M PRN (Reason: chest pain) Qty: 14 0RF Rx Instructions: do not exceed 3 doses per episode sulfamethoxazole-trimethoprim [Bactrim DS] 800-160 mg tablet 1 tab PO BID 10 Days Qty: 20 0RF bisoprolol fumarate 5 mg tablet 10 mg PO DAILY 30 Days Qty: 60 0RF diazepam [Valium] 10 mg tablet 10 mg PO BID PRN (Reason: anxiety) Qty: 10 0RF doxepin 10 mg capsule 10 mg PO .QHS Qty: 30 0RF megestrol 400 mg/10 mL (10 mL) suspension 400 mg PO DAILY 30 Days Qty: 300 0RF Ubrelvy 100 mg tablet 100 mg PO DAILY 30 Days Qty: 30 11RF cholecalciferol (vitamin D3) 25 mcg (1,000 unit) capsule 25 mcg PO DAILY 90 Days Qty: 90 2RF simvastatin 20 mg tablet 20 mg PO .QHS 90 Days Qty: 90 2RF Discharge Orders: Discharge ED (Routine); Ordered 12/25/21 Ordered By: Adrian Parks Discharge Diet: Regular Discharge Activity: Increase activity as tolerated Patient Instructions: Hip Contusion (ED) Activity Restrictions/Additional Instructions: Follow-up with medical provider as directed in the next 7 to 10 days for reevaluation. Apply cold pack on right hip to help with symptoms. You can use crutches to help with ambulation for the next couple days to allow for healing. Take Medications as prescribed. Return to the ER or your medical provider if condition worsens. Please read and understand discharge instructions. Thank you for choosing [facility] for your healthcare needs today. Please realize this is an emergency room and that we are providing you with a medical screening exam and this may not be complete and all inclusive of all the testing and or work up that you may need to determine your ailment or severity of your illness. It is very important that you follow up as instructed or that you return to the Emergency Department should you have concerns or if your condition changes or worsens in any way. Coding Level of Care Code ED Template Checker for Chris Wills Exam Comprehensive
[2021-12-25] MEDS: HYDROcodone-acetaminophen 7.5-325 mg Tablet 1 TAB PO (12:09)
== END 2021-12-25 12:48 | disposition home or self-care (01) ==
PROVIDERS: Emergency Provider Physician Assistant
DX: S70.01XA Contusion of right hip, initial encounter (principal); F17.210 Nicotine dependence, cigarettes, uncomplicated; W01.198A Fall on same level from slipping, tripping and stumbling with subsequent striking against other object, initial encounter
CPT/HCPCS: 73502; 99283

== ENCOUNTER → 2022-06-06 13:22 | Outpatient (BNVA) | payer BC, SELFPAY | PROVIDERS: PCP Nurse Practitioner Family; Visit Provider Nurse Practitioner Family | DX: M25.572 Pain in left ankle and joints of left foot (principal) | CPT/HCPCS: 73610 ==

== ENCOUNTER → 2022-07-24 09:15 | Outpatient (BNVA) | payer BC, SELFPAY | PROVIDERS: PCP Nurse Practitioner Family; Visit Provider Nurse Practitioner Family | DX: E78.00 Pure hypercholesterolemia, unspecified (principal); E55.9 Vitamin D deficiency, unspecified; F33.9 Major depressive disorder, recurrent, unspecified; F41.9 Anxiety disorder, unspecified; E53.8 Deficiency of other specified B group vitamins; I10 Essential (primary) hypertension; E03.9 Hypothyroidism, unspecified; R00.2 Palpitations; G47.00 Insomnia, unspecified; R55 Syncope and collapse; R53.1 Weakness; R94.31 Abnormal electrocardiogram [ECG] [EKG]; R07.9 Chest pain, unspecified; J40 Bronchitis, not specified as acute or chronic; G62.9 Polyneuropathy, unspecified; R00.1 Bradycardia, unspecified; F17.200 Nicotine dependence, unspecified, uncomplicated; R05.9 Cough, unspecified | CPT/HCPCS: 80053; 80061; 84443 ==

== ENCOUNTER 2022-08-04 09:05 | Emergency (ER) | payer BC, SELFPAY ==
[2022-08-04 09:06] VITALS: BP 150/88; PULSE 77; RESP 26; O2SAT 99; BMI 19.9
--- NOTE | 2022-08-04 09:06 | XRR_ITS ---
PROCEDURE INFORMATION: Exam: XR Chest Exam date and time: 08/04/2022 9:17 AM Age: 51 years old Clinical indication: Pain; Chest pressure; Additional info: Cp TECHNIQUE: Imaging protocol: Radiologic exam of the chest. Views: 1 view. COMPARISON: CR XR chest 1V [id number] 10/16/2015 12:54 AM FINDINGS: Lungs: No focal airspace disease. Pleural spaces: Unremarkable. No pleural effusion. No pneumothorax. Heart/Mediastinum: Cardiomediastinal silhouette is within normal limits. Bones/joints: Unremarkable. XR/XR chest 1V portable [id number] IMPRESSION: No acute cardiopulmonary abnormality.
--- NOTE | 2022-08-04 09:06 | ECG_ITS ---
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 Measurements Intervals [place] Rate: 79 P: 68 NH: 156 QRS: 61 QRSD: 106 T: 54 QT: 396 QTc: 456 Interpretive Statements SINUS RHYTHM No previous ECG available for comparison Electronically Signed On 08-04-2022 10:50:21 CDT by Regla Aguirre M.D. [id number]
[2022-08-04] MEDS: LORazepam 1 mg Tablet PO (09:47)
--- NOTE | 2022-08-04 09:49 | ED_ITS ---
HPI - Chest Pain General: Chief Complaint: Chest Pain Stated Complaint: CHEST PAIN; WEAKNESS Time Seen by Provider: 08/04/22 09:06 Source: patient and EMS Mode of arrival: EMS Limitations: no limitations History of Present Illness: 51-year-old female who states that she been having chest pain since midnight states the pain is in the center of her chest with some shortness of breath she denies any fever and denies any vomiting she has had some nausea. States she has been wearing a Holter monitor for some arrhythmias. She states her pain currently is a 3 out of 10 it has improved a little. Associated symptoms: Deny abdominal pain, dyspnea, fever(s), nausea or vomiting Review of Systems Const: Denies: fever(s), chills, body aches or change in appetite Eyes: Denies: blurry vision or eye discomfort ENMT: Denies: throat pain or dental pain Card: Reports: chest pain Resp: Denies: dyspnea GI: Denies: abdominal pain, nausea, vomiting or diarrhea : Denies: dysuria Musc: Denies: neck pain or back pain Skin/Breast: Denies: rash Neuro: Denies: headache(s) Psych: Denies: depression Chavo/Lymph: Denies: easy bruising All/Imm: Denies: urticaria PFSH ED PFSH: Medical History No pertinent family history Surgical History H/O: hysterectomy S/P appendectomy Social History Smoking and tobacco status: never smoked Physical Exam Const: COMMON NORMALS: no acute distress, patient oriented x3 and healthy appearing HENMT: COMMON NORMALS: normocephalic and atraumatic HEAD & SCALP: norm ocephalic and atraumatic Eye: COMMON NORMALS: Equal, round and reactive pupils present and EOMs intact bilaterally PUPIL: Yes Equal, round and reactive pupils present Neck/C-Spine: COMMON NORMALS: full ROM and supple Chest: COMMONS NORMALS: normal inspection of the chest and normal palpation of entire chest wall Resp: COMMON NORMALS: normal respiratory effort, No retractions, No use of accessory muscles and clear to auscultation bilaterally AUSCULTATION: clear to auscultation bilaterally Cardio: COMMON NORMALS: regular rate, regular rhythm and No murmurs present (Cardio) RATE: regular rate RHYTHM: regular rhythm GI: COMMON NORMALS: Normal to inspection, nondistended, normoactive bowel sounds present, Soft to palpation, non-tender and no masses PALPATION: Yes Soft to palpation Extremity: COMMON NORMALS: normal to inspection and full ROM Neuro: COMMON NORMALS: patient oriented x3, moves all extremities and no focal motor deficits Psych: COMMON NORMALS: mental status grossly normal, Normal thought process present and cooperative THOUGHT PROCESS: Normal thought process present Skin: COMMON NORMALS: no rashes or lesions noted and no wounds GENERAL SKIN EXAM: no rashes or lesions noted Course Vital Signs: Vital signs: Vital Signs Pulse Rate 77 08/04/22 09:06 Respiratory Rate 26 H 08/04/22 09:06 Blood Pressure 150/88 08/04/22 09:06 Pulse Oximetry 99 08/04/22 09:06 Oxygen Delivery Me thod 08/04/22 09:06 MDM - Chest Pain Medical Decision Making Patient presents here with chest pains atypical in nature patient was quite anxious well could be some anxiety her initial and repeat troponins here are negative EKG is abnormal we will get her follow-up with cardiology she return for worsening. Lab Data : 08/04/22 09:54 08/04/22 09:54 Radiology Impressions Chest X-Ray 08/04/22 09:06 IMPRESSION: No acute cardiopulmonary abnormality. Laboratory Results WBC 5.1 10^3/uL (4.0-10.0) 08/04/22 09:54 RBC 3.67 10^6/uL (4.1-5.3) L 08/04/22 09:54 Hgb 12.1 g/dL (11.5-15.3) 08/04/22 09:54 Hct 36.2 % (37.0-47.0) L 08/04/22 09:54 MCV 98.6 fl (81-99) 08/04/22 09:54 MCH 33.0 pg (28.0-34.0) 08/04/22 09:54 MCHC 33.4 g/dL (30.0-36.0) 08/04/22 09:54 RDW 11.9 % (12.1-15.1) L 08/04/22 09:54 Plt Count 284 10^3/cmm (130-400) 08/04/22 09:54 MPV 10.0 fL (7.4-10.4) 08/04/22 09:54 Neut % (Auto) 48.0 % 08/04/22 09:54 Lymph % (Auto) 39.5 % 08/04/22 09:54 [place] % (Auto) 6.6 % 08/04/22 09:54 Eos % (Auto) 4.7 % 08/04/22 09:54 Baso % (Auto) 0.8 % 08/04/22 09:54 Neut # (Auto) 2.46 10^3/uL (1.8-7.7) 08/04/22 09:54 Lymph # (Auto) 2.0 10^3/uL (0.8-4.8) 08/04/22 09:54 [place] # (Auto) 0.3 10^3/uL (0.2-0.9) 08/04/22 09:54 Eos # (Auto) 0.2 10^3/uL (0.0-0.8) 08/04/22 09:54 Baso # (Auto) 0.0 10^3/uL (0.0-0.1) 08/04/22 09:54 Nucleated RBC % (auto) 0 % 08/04/22 09:54 Nucleated RBCs # 0.0 /100WBC 08/04/22 09:54 PT 12.90 SECONDS (12.1-14.9) 08/04/22 09:54 INR 0.94 (0.8-1.2) 08/04/22 09:54 Sodium 145 mmol/L (136-145) 08/04/22 09:54 Potassium 3.7 mmol/L (3.5-5.1) 08/04/22 09:54 Chloride 109 mmol/L (98-107) H 08/04/22 09:54 Carbon Dioxide 21 mmol/L (22-29) L 08/04/22 09:54 Anion Gap 18.7 (5-19) 08/04/22 09:54 BUN 15 mg/dL (6-20) 08/04/22 09:54 Creatinine 0.6 mg/dL (0.5-0.9) 08/04/22 09:54 GFR Calculation 105.4 mL/min (90-130) 08/04/22 09:54 Glucose 96 mg/dL (65-115) 08/04/22 09:54 Calculated Osmolality 301 mOsm/kg (285-295) H 08/04/22 09:54 Calcium 9.8 mg/dL (8.5-10.5) 08/04/22 09:54 Total Bilirubin 0.3 mg/dL (0.15-1.2) 08/04/22 09:54 AST 10 U/L (0-32) 08/04/22 09:54 ALT 6 U/L (0-33) 08/04/22 09:54 Alkaline Phosphatase 76 U/L (35-105) 08/04/22 09:54 Troponin T Baseline 6 ng/L (0-10) 08/04/22 09:54 Troponin T 120 Minute 6.00 ng/L (0-10) 08/04/22 11:05 Delta Troponin T 0 ABS# (0-10) 08/04/22 11:05 Total Protein 6.7 g/dL (6.6-8.7) 08/04/22 09:54 Albumin 4.5 g/dL (3.5-5.2) 08/04/22 09:54 Globulin 2.2 g/dL (1.3-4.6) 08/04/22 09:54 EKG Data EKG 1: I personally reviewed and interpreted this EKG as follows: EKG interpretation date: 08/04/22 EKG interpretation time: 09:12 Interpretation: nsr hr [address] or t wave abnormalities qrs 106 qtc 431 EKG 2: I personally reviewed and interpreted this EKG as follows: EKG interpretation date: 08/04/22 EKG interpretation time: 10:54 Interpretation: nsr hr [address] or t wave abnormalities qrs 109 qtc 434 Discharge Plan Discharge Patient Disposition: Home Clinical Impression: Chest pain Condition: Stable Prescriptions: No Action bisoprolol fumarate 5 mg tablet 10 mg PO DAILY 30 Days Qty: 60 0RF ibuprofen 600 mg tablet 600 mg PO TID PRN (Reason: pain) 10 Days Qty: 30 0RF albuterol sulfate [ProAir HFA] 90 mcg/actuation HFA aerosol inhaler 2 puff inhalation QID PRN (Reason: shortness of breath or wheezing) Qty: 8.5 6RF budesonide-formoterol [Symbicort] 160-4.5 mcg/actuation HFA aerosol inhaler 2 puff inhalation Q12H Qty: 10.2 6RF cholecalciferol (vitamin D3) 25 mcg (1,000 unit) capsule 25 mcg PO DAILY 90 Days Qty: 90 2RF lisinopril 5 mg tablet 5 mg PO DAILY Qty: 30 3RF nitroglycerin 0.4 mg tablet, sublingual 0.4 mg sublingual Q5M PRN (Reason: chest pain) Qty: 14 0RF Rx Instructions: do not exceed 3 doses per episode simvastatin 20 mg tablet 20 mg PO .QHS 90 Days Qty: 90 2RF doxepin 10 mg capsule 10 mg PO .QHS 30 Days Qty: 30 3RF duloxetine 20 mg capsule,delayed release(DR/EC) 20 mg PO DAILY 30 Days Qty: 30 3RF benzonatate 100 mg capsule 200 mg PO TID PRN (Reason: cough) 30 Days Qty: 180 3RF triamcinolone acetonide 0.5 % cream 1 applic topical TID 30 Days Qty: 15 3RF Discharge Orders: Discharge ED (Routine); Ordered 08/04/22 Ordered By: Cheryl Kline Referrals: Rosio Fontanez NP [Primary Care Provider] - Regla Aguirre MD [Physician] - 1-3 days Discharge Diet: Advance as tolerated Discharge Activity: Resume usual activity Patient Instructions: Chest Pain (ED) Coding Level of Care Code ED Mine Exploration Engineer for Chg Fwd Exam Comprehensive
--- NOTE | 2022-08-04 09:57 | PC.NURSE ---
PT IS PLACED ON CONTINUOUS SPO2, NIBP, AND CM.
[2022-08-04] MEDS: aspirin 81 mg Chew Tablet 324 MG PO (10:02)
--- NOTE | 2022-08-04 10:09 | PC.NURSE ---
WHILE AT BEDSIDE ATTEMPTED TO AMB PT TO BEDROOM ADN SHE FELL TO HER KNEES. PT DENIES ANY PAIN OR INJURY TO KNEES OR EXT. PT THEN ASSISTED BACK INTO BED AND OFFERED BED EDWARD. PT REFUSED. DR. MORENO INORMED NO FURTHER ORDERS.
[2022-08-04 10:28] LABS: Basophils % 0.8 %; Eosinophils # 0.2 10^3/uL (0.0-0.8); Eosinophils % 4.7 %; Hematocrit 36.2 % (37.0-47.0); Hemoglobin 12.1 g/dL (11.5-15.3); Lymphocytes % 39.5 %; Mean Corpuscular HGB Conc 33.4 g/dL (30.0-36.0); Mean Corpuscular Volume 98.6 fl (81-99); Monocytes # 0.3 10^3/uL (0.2-0.9); Monocytes % 6.6 %; Neutrophils # 2.46 10^3/uL (1.8-7.7); Nucleated Red Blood Cells % 0 %; Platelet Count 284 10^3/cmm (130-400); Red Blood Count 3.67 10^6/uL (4.1-5.3); Red Cell Distribution Width 11.9 % (12.1-15.1); White Blood Count 5.1 10^3/uL (4.0-10.0)
[2022-08-04 10:29] LABS: INR 0.94 (0.8-1.2)
[2022-08-04 10:30] VITALS: BP 140/76; PULSE 59; RESP 17; O2SAT 17
[2022-08-04 10:36] LABS: Alanine Aminotransferase 6 U/L (0-33); Albumin Level 4.5 g/dL (3.5-5.2); Alkaline Phosphatase 76 U/L (35-105); Anion Gap 18.7 (5-19); Aspartate Amino Transferase 10 U/L (0-32); Blood Urea Nitrogen 15 mg/dL (6-20); Calcium 9.8 mg/dL (8.5-10.5); Carbon Dioxide 21 mmol/L (22-29); Chloride 109 mmol/L (98-107); Globulin 2.2 g/dL (1.3-4.6); Glomerular Filtration Rate 105.4 mL/min (90-130); Glucose 96 mg/dL (65-115); Osmolality Calculated 301 mOsm/kg (285-295); Potassium 3.7 mmol/L (3.5-5.1); Sodium 145 mmol/L (136-145); Total Bilirubin 0.3 mg/dL (0.15-1.2); Total Protein 6.7 g/dL (6.6-8.7)
[2022-08-04 10:37] LABS: Troponin(5th) Baseline 6 ng/L (0-10)
--- NOTE | 2022-08-04 10:54 | ECG_ITS ---
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 Measurements Intervals [place] Rate: 61 P: 64 WI: 228 QRS: 63 QRSD: 109 T: 57 QT: 430 QTc: 436 Interpretive Statements SINUS RHYTHM WITH SINUS ARRHYTHMIA WITH FIRST DEGREE AV BLOCK INCOMPLETE RIGHT BUNDLE BRANCH BLOCK POSSIBLE ANTERIOR MYOCARDIAL INFARCTION , OF INDETERMINATE AGE Compared to ECG 08/04/2022 09:12:58 First degree AV block now present Incomplete right bundle-branch block now present Myocardial infarct finding now present Electronically Signed On 08-04-2022 10:55:21 CDT by Regla Aguirre M.D. [id number]
[2022-08-04 11:30] VITALS: BP 122/61; PULSE 59; RESP 16; O2SAT 93
[2022-08-04 12:29] LABS: Troponin 5 2HR Delta 0 ABS# (0-10)
[2022-08-04 12:30] VITALS: BP 111/59; PULSE 58; RESP 15; O2SAT 93
--- NOTE | 2022-08-06 12:14 | DCPLANNER ---
Addendum entered by Gabrielle Michelle 10/05/22 11:45: Patient had a follow up appointment scheduled with heart care - patient did not attend appointment. Addendum entered by Gabrielle Michelle 08/09/22 16:44: Patient has a follow up appointment scheduled for Saturday, October 03, 2021 at 9:[address] Aguirre at [facility]. Clinic will call patient with appointment information. Original Note: group fitness manager had message to schedule a follow up appointment for patient with cardiology. group fitness manager sent patients information to the front office staff at [facility]. Patients information will be printed and reviewed. Clinic will call patient with appointment information.
== END 2022-08-04 12:49 | disposition home or self-care (01) ==
PROVIDERS: Emergency Provider Emergency Medicine; PCP Nurse Practitioner Family
DX: R07.9 Chest pain, unspecified (principal)
CPT/HCPCS: 71045; 80053; 84484; 85025; 85610; 93005; 99285

== ENCOUNTER 2022-09-17 11:58 | Outpatient (CLI) | payer BC, SELFPAY ==
--- NOTE | 2022-09-17 12:00 | USCV_ITS ---
Prachi Bolanos Age: 52 Gender: F : 1970 Exam Date: 09/17/2022 12:08 Ordering Phys: Rosio Fontanez NP Technologist: Marielle Turcios Exam Location: [facility] [place] Indication: Chest Pain, Palpitations, near syncope bradycardia BP: / HR: 57 Rhythm: Sinus Technical Quality: Adequate MEASUREMENTS (Male / Female) Normal Values 2D ECHO LV Diastolic Diameter PLAX 4.7 cm 4.2 - 5.9 / 3.9 - 5.3 cm LV Systolic Diameter PLAX 2.5 cm LV Chamber Size 3.1 cm IVS Diastolic Thickness 1.1 cm 0.6 - 1.0 / 0.6 - 0.9 cm IVS Systolic Thickness 1.5 cm LVPW Diastolic Thickness 1.0 cm 0.6 - 1.0 / 0.6 - 0.9 cm LVPW Systolic Thickness 1.7 cm RV Chamber Size 2.6 cm LVOT Diameter 2.0 cm LV Ejection Fraction 2D Teich 78.6 % LV Ejection Fraction MOD 2C 65.0 % LV Ejection Fraction 2C AL 65.4 % LA Diameter 2.4 cm LA Width 2.0 cm LA Height 2.5 cm RA Width 2.6 cm RA Height 2.8 cm Aorta at Sinotubular Diameter 2.3 cm IVC Diameter 1.5 cm M-MODE Aortic Annulus Diameter 3.3 cm LA Ao Ratio MM 0.9 MV E Point Septal Separation 0.4 cm DOPPLER AV Peak Velocity 133.0 cm/s LVOT Peak Velocity 111.0 cm/s AV Area Cont Eq vti 2.6 cm squared AV Area Cont Eq pk 2.7 cm squared MV E' Velocity 14.0 cm/s TR Peak Velocity 187.6 cm/s TR Peak Gradient 14.1 mmHg TR Mean Velocity 145.3 cm/s TR Mean Gradient 9.8 mmHg TR Velocity Time Integral 63.6 cm TV Peak E Velocity 54.0 cm/s Right Atrial Pressure 3.0 mmHg Pulmonary Artery Systolic Pressu 17.1 mmHg RV Acceleration Time 0.2 s RV Ejection Time 0.4 s RV AcT/ET 0.5 FINDINGS Left Ventricle Left ventricle is normal in size. LV systolic function is normal with EF 55 to 60%. No regional wall motion abnormalities are seen. Right Ventricle Normal in size and function Right Atrium Normal in size Left Atrium Normal in size Mitral Valve Structurally normal mitral valve. No significant stenosis or regurgitation Aortic Valve Structurally normal aortic valve. No significant stenosis. Mild aortic regurgitation is seen Tricuspid Valve Trace tricuspid regurgitation. Pulmonary artery systolic pressure is normal. Pulmonic Valve Not well visualized. Pericardium Normal Aorta Normal in size IVC Appears to be normal CONCLUSIONS LV systolic function is normal with EF 55 to 60%. Mild aortic regurgitation is seen. Trace tricuspid regurgitation No comparison studies are available Jimi Galvez MD (Electronically Signed) Final Date: 30 September 2022 15:57 S
--- NOTE | 2022-09-17 12:45 | US_ITS ---
WS: [id number] THYROID ULTRASOUND HISTORY: enlarged thyroid COMPARISON: None available. Right lobe: 1.2 cm x 1.3 cm x 2.9 cm (w x ap x l). Volume: 2.2 cm3. Normal size and echotexture. No significant are dominant nodules are present. Left lobe: 1.1 cm x 1.2 cm x 3.0 cm (w x ap x l). Volume: 2.0 cm3. Normal size and echotexture. No significant or dominant nodules are present. Isthmus: 0.2 cm. US/US thyroid [id number] IMPRESSION: Normal thyroid ultrasound.
--- NOTE | 2022-09-17 13:30 | CT_ITS ---
WS: [id number] LDCT LUNG CANCER SCREENING HISTORY: screening TECHNIQUE: Axial imaging performed from the apices to 1 cm below the costophrenic angles. Coronal and sagittal reformats are submitted with axial MIP series. All CT scans at [facility] use at least one of these dose optimization techniques: automated exposure control; mA and/or kV adjustment per patient size (includes targeted exams where dose is matched to clinical indication); or iterativ e reconstruction. DLP: 70.80 mGy.cm DIvol: Mean CTDIvol: 1.60 (mGy) COMPARISON: Chest CT 01/26/2015 Diagnostic quality: Satisfactory Lung Nodules: No pulmonary nodule or endobronchial lesions. Lungs: Mild pulmonary hyperinflation from emphysema. Heart: Normal size heart. No pericardial effusion. Other findings: None. CT/CT lung screening [id number] IMPRESSION: LUNG-RADS: 1-Negative FOLLOW UP: 12 Month: Continue annual screening with LDCT OTHER FINDINGS (S MODIFIER): None.
== END 2022-09-17 11:59 | disposition home or self-care (01) ==
LOC: RAD 12:01
PROVIDERS: PCP Nurse Practitioner Family; Visit Provider Nurse Practitioner Family
DX: R00.1 Bradycardia, unspecified (principal); E03.9 Hypothyroidism, unspecified; E04.9 Nontoxic goiter, unspecified; F17.200 Nicotine dependence, unspecified, uncomplicated
CPT/HCPCS: 71271; 76536; 93306

== ENCOUNTER 2023-01-31 10:51 | Emergency (ER) | payer BC, SELFPAY ==
[2023-01-31 10:55] VITALS: BP 186/114; PULSE 79; RESP 18; TEMP 36.9; O2SAT 100; BMI 19.3
[2023-01-31 11:00] VITALS: BP 152/89; PULSE 64; O2SAT 98
--- NOTE | 2023-01-31 11:09 | CTR_ITS ---
PROCEDURE INFORMATION: Exam: CT Abdomen And Pelvis With Contrast Exam date and time: 01/31/2023 11:38 AM Age: 52 years old Clinical indication: Abdominal pain; Localized; Left; Prior surgery; Surgery type: Appy, hyst, c-sections; Additional info: Left sided pain TECHNIQUE: Imaging protocol: Computed tomography of the abdomen and pelvis with contrast. Radiation optimization: All CT scans at this facility use at least one of these dose optimization techniques: automated exposure control; mA and/or kV adjustment per patient size (includes targeted exams where dose is matched to clinical indication); or iterative reconstruction. Contrast material: OMNI 350; Contrast volume: 100 ml; Contrast route: INTRAVENOUS (IV); REPORTING DATA: Count of CT and Cardiac NM exams in prior 12 months: This patient has received [address] and 0 known cardiac nuclear medicine studies in the 12 months prior to the current study. COMPARISON: CT abdomen pelvis w con* [id number] 08/03/2020 5:15 PM RADIATION DOSE METRICS: Total DLP (mGy-cm): 274.86 FINDINGS: Liver: Area of hypoattenuation along the anterior margin of the liver adjacent to the falciform ligament consistent with focal fatty infiltration. The liver is normal in size and contour. Gallbladder and bile ducts: The gallbladder appears unremarkable. No intra- or extra-hepatic biliary ductal dilatation. Pancreas: The pancreas appears normal. Spleen: The spleen appears normal. Adrenal glands: The adrenals appear normal. Kidneys and ureters: Mild prominence of the left-sided renal collecting system . No renal stones identified. The entirety of the left ureter is not well visualized, however no significant ureteral stones identified. No perinephric fat stranding. The kidneys enhance symmetrically. Stomach and bowel: The stomach is unremarkable. The small bowel loops are not abnormally dilated. The large bowel loops are not abnormally dilated. Appendix: No signs of appendicitis. Intraperitoneal space: No ascites or significant fluid collection. Vasculature: The aorta is nonaneurysmal. The IVC appears normal. Lymph nodes: There are no enlarged lymph nodes. Urinary bladder: The bladder is distended and demonstrates no focal contour abnormality. Reproductive: Unremarkable as visualized. Bones/joints: Degenerative disc disease at L5-S1. Soft tissues: Unremarkable. CT/CT abdomen pelvis w con* [id number] IMPRESSION: Mild prominence of the left-sided renal collecting system, of indeterminate etiology. No renal stones or significant ureteral stones identified. No perinephric fat stranding, in the kidneys enhance symmetrically.
--- NOTE | 2023-01-31 11:10 | ED_ITS ---
HPI - Abdominal Pain General: Chief Complaint: Abdominal Pain Stated Complaint: abd pain, unable to urinate, N/V Time Seen by Provider: 01/31/23 11:02 Source: patient Mode of arrival: ambulatory Limitations: no limitations History of Present Illness: This patient made her way to the emergency department this morning. She states she has been dealing with some intermittent left sided abdominal pain for the last 2 months. She states that it is worsened over the last several days and and that its relatively constant and interrupts her sleep. She states that is sharp in nature and is somewhat relieved by her placing her hand over the area and putting pressure in the area. She states it is extremely painful to have a bowel movement. She states the active bearing down increases her pain. She d enies any blood in her stools. She states that she does feel full at times and has not eaten as much and threw up twice in the last 3 to 4 days. She states that she is able to urinate normally without discomfort or blood in her urine. She states her bowel movements have been normal consistency for her without any blood or dark tarry stools. She has had a prior C-sections, appendectomy, total abdominal hysterectomy. She never had symptoms like this before. No history of kidney stones. No history of trauma. No fevers or exposure to infectious disease. Note food relationship to her symptoms. She has a history of COPD and is a tobacco user. Denies street drugs or alcohol. MD elicited complaint: abdominal pain Location: LLQ and L flank Quality: fullness and sharp Radiation: none Migration to: no migration Associated Symptoms: Reports excessive flatus, nausea and vomiting; Denies dysuria, fever(s), hematochezia, hematemesis, melena and syncope Review of Systems Const: Denies: fever(s) or body aches Eyes: Denies: change in vision ENMT: Denies: throat pain, odynophagia, nasal discharge or nasal congestion Card: Denies: chest pain, palpitations, syncope or pre-syncope Resp: Reports: non-productive cough; Denies: dyspnea, wheezing or stridor GI: Reports: abdominal pain, nausea, vomiting and excessive flatus; Denies: hematemesis, rectal pain, hematochezia or melena : Denies: difficulty voiding, dysuria, urinary frequency or vaginal bleeding Musc: Denies: neck pain, back pain, extremity pain or extremity swelling Skin/Breast: Denies: rash Neuro: Denies: headache(s), numbness in extremities or weakness in extremities PFSH ED PFSH: Medical History No pertinent family history Surgical History H/O: hysterectomy S/P appendectomy Social History Smoking and tobacco status: never smoked Physical Exam Narrative: EXAM NARRATIVE: The patient makes good eye contact, answers questions in a goal-directed fashion. She is uncomfortable with movement and occasionally holds her left side. Const: COMMON NORMALS: patient oriented x3 GENERAL APPEARANCE: cooperative NUTRITIONAL APPEARANCE: thin HENMT: COMMON NORMALS: normocephalic, atraumatic, Normal nasal mucous membranes and turbinates present, moist oral mucous membranes and oropharynx normal HEAD & SCALP: normocephalic and atraumatic NOSE: Normal nasal mucous membranes and turbinates present Eye: COMMON NORMALS: Equal, round and reactive pupils present, conjunctivae normal and no scleral icterus CONJUNCTIVA: Yes conjunctivae normal PUPIL: Yes Equal, round and reactive pupils present Neck/C-Spine: COMMON NORMALS: full ROM, no JVD and No carotid bruits Chest: COMMONS NORMALS: normal inspection of the chest Resp: COMMON NORMALS: normal respiratory effort, No retractions, No use of accessory muscles and clear to auscultation bilaterally AUSCULTATION: clear to auscultation bilaterally Cardio: COMMON NORMALS: no JVD, regular rate, regular rhythm, No murmurs present (Cardio) and Peripheral pulses 2+ throughout RATE: regular rate RHYTHM: regular rhythm PERIPHERAL PULSES: Peripheral pulses 2+ throughout GI: COMMON NORMALS: Normal to inspection, nondistended, normoactive bowel sounds present and no masses PALPATION: Yes Tenderness to palpation present (GI) (Tender with significant voluntary guarding the left upper and lower quadran) Details: LLQ and LUQ GI image (female): 1. Area of tenderness : COMMON NORMALS: Yes no CVA tenderness BLADDER/KIDNEY EXAM: Yes no CVA tenderness Back/Pelvis: COMMON NORMALS: no CVA tenderness, thoracic and lumbar spine normal to inspection, no thoracic nor lumbar tenderness, thoraco-lumbar ROM normal and straight leg raise negative bilaterally Extremity: COMMON NORMALS: normal to inspection, full ROM, no calf tenderness and no pedal edema Neuro: COMMON NORMALS: patient oriented x3, moves all extremities, no focal motor deficits and no sensory deficits noted CRANIAL NERVES: Yes CN normal except as noted Psych: COMMON NORMALS: mental status grossly normal Skin: COMMON NORMALS: no rashes or lesions noted, no wounds, turgor normal and no jaundice NARRATIVE SKIN EXAM: Multiple skin tattoos GENERAL SKIN EXAM: no rashes or lesions noted and turgor normal Course Reevaluation(s): Reevaluation #1: Patient was allowed to spontaneously empty her bladder and a bladder scan post void residual was undetectable. Time: 13:07 Reevaluation #2: In light of her reassuring studies her history was reviewed again with her. Again she relates that she was having some intermittent symptoms that seem to worsen in about a week or so prior to arrival. She states that they do not usually bother her during the day they seem to be more prevalent during the night when she is less preoccupied. Again no change in diet travel recent antibiotics or other associated symptoms that would at face value suggest serious pathology. We did review emotional stressors and she did admit that she had the loss of a family member as well as other stressors that have perhaps p layed a role in the past few weeks. No neurofocal findings on reevaluation. I shared the lack of concerning findings and perhaps a trial of antispasmodics with close follow-up would be reasonable. Time: 13:21 Vital Signs: Vital signs: Vital Signs Temperature 98.4 F 01/31/23 10:55 Pulse Rate 61 01/31/23 12:30 Respiratory Rate 18 01/31/23 10:55 Blood Pressure 148/84 01/31/23 12:30 Pulse Oximetry 99 01/31/23 12:30 Oxygen Delivery Me thod Room Air 01/31/23 12:30 MDM - Abdominal Pain Medical Decision Making This patient made her way to our emergency department because of left-sided abdominal pain. Her clinical history did not have any discerning features and therefore the differential included such things as small bowel obstruction, pancreatitis, kidney stone, ischemic bowel etc. Clinical examination was unrevealing as well. Imaging and ancillary studies were undertaken. All studies obtained in the emergency department were reassuring without evidence of the after mentioned pathology or evidence that would suggest profound anemia, urinary tract infection, etc. No evidence of urinary retention after postvoid residual was undetectable. We explored other potential etiologies and perhaps there may be a social stress or that may be precipitating and manifesting as is her abdominal pain given the lack of significant findings today. We suggested a trial of antispasmodics which she was agreeable to. We also discussed despite the lack of pathology that close follow-up is necessary to ensure that no new or worsening symptoms in situ that could indicate additional testing or evaluation is necessary. She voiced understanding and was appreciative of care. Differential Diagnosis Likely abdominal pain Medical Records I reviewed the patient's medical records. Lab Data I reviewed the patient's lab results. 01/31/23 11:20 01/31/23 11:20 Labs/Radiology: Radiology Impressions Abdomen/Pelvis CT 01/31/23 11:09 IMPRESSION: Mild prominence of the left-sided renal collecting system, of indeterminate etiology. No renal stones or significant ureteral stones identified. No perinephric fat stranding, in the kidneys enhance symmetrically. Laboratory Results WBC 5.7 10^3/uL (4.0-10.0) 01/31/23 11:20 RBC 3.79 10^6/uL (4.1-5.3) L 01/31/23 11:20 Hgb 13.0 g/dL (11.5-15.3) 01/31/23 11:20 Hct 38.7 % (37.0-47.0) 01/31/23 11:20 MCV 102.1 fl (81-99) H 01/31/23 11:20 MCH 34.3 pg (28.0-34.0) H 01/31/23 11:20 MCHC 33.6 g/dL (30.0-36.0) 01/31/23 11:20 RDW 12.3 % (12.1-15.1) 01/31/23 11:20 Plt Count 273 10^3/cmm (130-400) 01/31/23 11:20 MPV 9.7 fL (7.4-10.4) 01/31/23 11:20 Neut % (Auto) 46.5 % 01/31/23 11:20 Lymph % (Auto) 42.2 % 01/31/23 11:20 [place] % (Auto) 6.5 % 01/31/23 11:20 Eos % (Auto) 3.9 % 01/31/23 11:20 Baso % (Auto) 0.5 % 01/31/23 11:20 Neut # (Auto) 2.63 10^3/uL (1.8-7.7) 01/31/23 11:20 Lymph # (Auto) 2.4 10^3/uL (0.8-4.8) 01/31/23 11:20 [place] # (Auto) 0.4 10^3/uL (0.2-0.9) 01/31/23 11:20 Eos # (Auto) 0.2 10^3/uL (0.0-0.8) 01/31/23 11:20 Baso # (Auto) 0.0 10^3/uL (0.0-0.1) 01/31/23 11:20 Nucleated RBC % (auto) 0 % 01/31/23 11:20 Nucleated RBCs # 0.0 /100WBC 01/31/23 11:20 Sodium 138 mmol/L (136-145) 01/31/23 11:20 Potassium 3.5 mmol/L (3.5-5.1) 01/31/23 11:20 Chloride 103 mmol/L (98-107) 01/31/23 11:20 Carbon Dioxide 25 mmol/L (22-29) 01/31/23 11:20 Anion Gap 13.5 (5-19) 01/31/23 11:20 BUN 16 mg/dL (6-20) 01/31/23 11:20 Creatinine 0.6 mg/dL (0.5-0.9) 01/31/23 11:20 GFR Calculation 105.0 mL/min (90-130) 01/31/23 11:20 Glucose 93 mg/dL (65-115) 01/31/23 11:20 Calculated Osmolality 287 mOsm/kg (285-295) 01/31/23 11:20 Calcium 9.3 mg/dL (8.5-10.5) 01/31/23 11:20 Total Bilirubin 0.3 mg/dL (0.15-1.2) 01/31/23 11:20 AST 11 U/L (0-32) 01/31/23 11:20 ALT 7 U/L (0-33) 01/31/23 11:20 Alkaline Phosphatase 85 U/L (35-105) 01/31/23 11:20 Total Protein 6.9 g/dL (6.6-8.7) 01/31/23 11:20 Albumin 4.6 g/dL (3.5-5.2) 01/31/23 11:20 Globulin 2.3 g/dL (1.3-4.6) 01/31/23 11:20 Lipase 34 U/L (13-60) 01/31/23 11:20 Urine Color Yellow (Yellow) 01/31/23 12:00 Urine Appearance Clear (CLEAR) 01/31/23 12:00 Urine pH 7 (5-7) 01/31/23 12:00 Ur Specific [place] 1.010 (1.005-1.030) 01/31/23 12:00 Urine Protein Neg (Negative) 01/31/23 12:00 Urine Glucose (UA) Norm (Normal) 01/31/23 12:00 Urine Ketones Negative (Negative) 01/31/23 12:00 Urine Blood Neg (Negative) 01/31/23 12:00 Urine Nitrate Negative (Negative) 01/31/23 12:00 Urine Bilirubin Neg (Negative) 01/31/23 12:00 Urine Urobilinogen Neg mg/dL (Negative) 01/31/23 12:00 Ur Leukocyte Esterase Negative (Negative) 01/31/23 12:00 Discharge Plan Discharge Patient Disposition: Home Clinical Impression: Abdominal pain Condition: Stable Prescriptions: New hyoscyamine sulfate [Levsin] 0.125 mg tablet 0.125 mg PO Q6H PRN (Reason: dyspepsia) Qty: 30 0RF No Action bisoprolol fumarate 5 mg tablet 10 mg PO DAILY 30 Days Qty: 60 0RF ondansetron HCl 4 mg tablet 4 mg PO Q6H PRN (Reason: nausea and vomiting) Qty: 90 0RF Rx Instructions: not picked up as of 01/31/23 ibuprofen 600 mg tablet 600 mg PO TID PRN (Reason: pain) 10 Days Qty: 30 0RF albuterol sulfate [ProAir HFA] 90 mcg/actuation HFA aerosol inhaler 2 puff inhalation QID PRN (Reason: shortness of breath or wheezing) Qty: 8.5 6RF budesonide-formoterol [Symbicort] 160-4.5 mcg/actuation HFA aerosol inhaler 2 puff inhalation Q12H Qty: 10.2 6RF cholecalciferol (vitamin D3) 25 mcg (1,000 unit) capsule 25 mcg PO DAILY 90 Days Qty: 90 2RF lisinopril 5 mg tablet 5 mg PO DAILY Qty: 30 3RF nitroglycerin 0.4 mg tablet, sublingual 0.4 mg sublingual Q5M PRN (Reason: chest pain) Qty: 14 0RF Rx Instructions: do not exceed 3 doses per episode duloxetine 20 mg capsule,delayed release(DR/EC) 20 mg PO DAILY 30 Days Qty: 30 3RF benzonatate 100 mg capsule 200 mg PO TID PRN (Reason: cough) 30 Days Qty: 180 3RF Vitamin B-12 1,000 mcg Tablet 2,000 mcg PO DAILY doxepin 10 mg capsule 10 mg PO BEDTIME simvastatin 20 mg tablet 20 mg PO BEDTIME Discharge Orders: Discharge ED (Routine); Ordered 01/31/23 Ordered By: Naun Bolanos Referrals: Rosio Fontanez NP [Primary Care Provider] - Discharge Diet: Usual diet Discharge Activity: Increase activity as tolerated Patient Instructions: Abdominal Pain (ED), Opioid Safety, Pain Management Activity Restrictions/Additional Instructions: As we discussed while you are in the emergency department your evaluation today in the emergency department today did not reveal any serious or concerning findings that might suggest a serious condition causing your abdominal pain. We also reviewed potential stressors that may be contributing to your abdominal pain. We have provided you a prescription that you may use on a trial basis to see if it improves your symptoms. However, if you develop blood in your stools, fevers, increasing pain or any other concerning symptoms you are welcome to return to this or the nearest emergency department for reevaluation. Coding Level of Care Code ED Compressor Repairer for Chris Wills
[2023-01-31] MEDS: sodium chloride 0.9% 1,000 ML 999 ML IV (11:24)
[2023-01-31 11:32] LABS: Basophils % 0.5 %; Eosinophils # 0.2 10^3/uL (0.0-0.8); Eosinophils % 3.9 %; Hematocrit 38.7 % (37.0-47.0); Lymphocytes # 2.4 10^3/uL (0.8-4.8); Lymphocytes % 42.2 %; Mean Corpuscular HGB Conc 33.6 g/dL (30.0-36.0); Mean Corpuscular Hemoglobin 34.3 pg (28.0-34.0); Mean Corpuscular Volume 102.1 fl (81-99); Mean Platelet Volume 9.7 fL (7.4-10.4); Monocytes # 0.4 10^3/uL (0.2-0.9); Monocytes % 6.5 %; Neutrophils # 2.63 10^3/uL (1.8-7.7); Neutrophils % 46.5 %; Nucleated Red Blood Cells % 0 %; Platelet Count 273 10^3/cmm (130-400); Red Blood Count 3.79 10^6/uL (4.1-5.3); Red Cell Distribution Width 12.3 % (12.1-15.1); White Blood Count 5.7 10^3/uL (4.0-10.0)
--- NOTE | 2023-01-31 11:40 | PC.PHAR ---
pt states she just restarted taking her medications on saturday01/28/23-pt states she has trouble remembering to take her medications-rx bottles brought in were dated 07/24/22 notes are made in the pharmacy comments with rx bottle dates-pt states she didnt take any of her medications today
[2023-01-31] MEDS: iohexol 350 mg/mL 500 mL Btl (per mL) IV (11:47)
[2023-01-31 11:55] LABS: Alanine Aminotransferase 7 U/L (0-33); Albumin Level 4.6 g/dL (3.5-5.2); Alkaline Phosphatase 85 U/L (35-105); Anion Gap 13.5 (5-19); Aspartate Amino Transferase 11 U/L (0-32); Blood Urea Nitrogen 16 mg/dL (6-20); Calcium 9.3 mg/dL (8.5-10.5); Carbon Dioxide 25 mmol/L (22-29); Chloride 103 mmol/L (98-107); Globulin 2.3 g/dL (1.3-4.6); Glucose 93 mg/dL (65-115); Lipase 34 U/L (13-60); Osmolality Calculated 287 mOsm/kg (285-295); Potassium 3.5 mmol/L (3.5-5.1); Sodium 138 mmol/L (136-145); Total Bilirubin 0.3 mg/dL (0.15-1.2); Total Protein 6.9 g/dL (6.6-8.7)
[2023-01-31 12:17] LABS: Add Urine Microscopic? NO; Charge for UA Resulting for Rev
[2023-01-31 12:23] LABS: Bilirubin Urine Neg (Negative); Blood Urine Neg (Negative); Glucose Urine UA Norm (Normal); Ketones Urine Negative (Negative); Leukocyte Esterase Urine Negative (Negative); Nitrate Urine Negative (Negative); Protein Urine Neg (Negative); Urine Appearance Clear (CLEAR); Urine Color Yellow (Yellow); Urobilinogen Urine Neg (Negative); pH Urine 7 (5-7)
[2023-01-31 12:30] VITALS: BP 148/84; PULSE 61; O2SAT 99
[2023-01-31 13:49] VITALS: PULSE 67; O2SAT 98
== END 2023-01-31 13:50 | disposition home or self-care (01) ==
PROVIDERS: Emergency Provider Emergency Medicine; PCP Nurse Practitioner Family
DX: R10.32 Left lower quadrant pain (principal)
CPT/HCPCS: 74177; 80053; 81003; 83690; 85025; 96360; 99285; J7030; Q9967

== ENCOUNTER 2023-05-05 15:17 | Emergency (ER) | payer SELFPAY ==
[2023-05-05 15:20] VITALS: BP 185/104; PULSE 84; RESP 18; TEMP 36.8; O2SAT 100; BMI 18.8
--- NOTE | 2023-05-05 15:56 | W.ED.WOUNDLC ---
HPI - Wound/Laceration General: Chief Complaint: Wound/Laceration Stated Complaint: LT index finger lac Time Seen by Provider: 05/05/23 15:35 Source: patient Mode of arrival: ambulatory Limitations: no limitations History of Present Illness: 52-year-old female presents to the ER today for left index finger laceration. 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 She reports she cut the tip of the finger. She immediately washed it with water. She reports numbness and significant pain to the tip of the finger. She reports bleeding is now controlled. Patient reports normal range of motion. Patient reports last tetanus shot was within the last 2 years. Review of Systems General: Reports: 10 or more systems reviewed and unremarkable except in HPI and below PFSH ED PFSH: Medical History No pertinent family history Surgical History H/O: hysterectomy S/P appendectomy Social History Smoking and tobacco status: never smoked Physical Exam Const: COMMON NORMALS: average body habitus, patient oriented x3, no limitations, healthy appearing, alert and well nourished Resp: COMMON NORMALS: normal respiratory effort EFFORT & INSPECTION: Yes able to speak in complete sentences Cardio: COMMON NORMALS: regular rate, regular rhythm and No murmurs present (Cardio) RATE: regular rate RHYTHM: regular rhythm Extremity: NARRATIVE EXTREMITY EXAM: Patient has a 1 cm laceration to the distal tip of the left index finger. Bleeding controlled. Normal range of motion. Decreased sensation. Neuro: COMMON NORMALS: patient oriented x3 SENSORIUM/ORIENTATION: Yes alert Psych: COMMON NORMALS: mental status grossly normal, Normal thought process present and cooperative THOUGHT PROCESS: Normal thought process present Skin: NARRATIVE SKIN EXAM: Patient has an avulsion laceration to the distal tip of the left index finger. This does not involve the corner of the nail. Patient has normal range of motion. Bleeding controlled. No signs of infection or foreign bodies. Procedures Laceration Laceration 1: Site: hand (Left index finger) Side (If applicable): left Size (cm): 1 Description: flap, clean and other (Involving nail) Depth: simple, single layer Local Anesthetic: lidocaine 2% Amount of anesthesia used (mL): 2 Pre-repair: wound explored and irrigated extensively Skin layer closed with: other (ethilon) Size (cm): 5-0 Number of sutures: 1 Technique: simple, interrupted Course ED course: Patient presents for a laceration to the distal tip of the left index finger. Patient has normal range of motion and no signs of tendon or ligament damage. No bone involvement likely. Patient's numbness would be expected given the area of injury. We will clean the laceration and close it. Vital Signs: Vital signs: Vital Signs Temperature 98.2 F 05/05/23 15:20 Pulse Rate 84 05/05/23 15:20 Respiratory Rate 18 05/05/23 15:20 Blood Pressure 185/104 05/05/23 15:20 Pulse Oximetry 100 05/05/23 15:20 Oxygen Delivery Me thod Room Air 05/05/23 15:20 MDM - Wound/Laceration Medical Decision Making Patient has a 1 cm laceration to the distal tip of the left index finger. This does involve part of the nail however we are able to tack back down the small flap and the nail will grow out and be okay. There was no active bleeding. A a wet gauze dressing was placed along with compression and nonstick dressing. Discussed wound care with patient. Bhupinder for 48 hours before removing and cleaning. For pain elevate the finger and apply ice. Take ibuprofen as needed. Patient is up-to-date on tetanus status. Unlikely to get infected given this was a clean knife and clean environment. Discussed with patient that she may have some numbness that area and it may or may not return however she does not appear to have any tendon injuries. Follow-up with PCP in 7 to 10 days for suture removal. Return to the ER with any new or worsening symptoms. Patient verbalized understanding and was in agreement with the treatment plan. Critical Care Time Critical Care Time: Critical Care Time: No Discharge Plan Discharge Patient Disposition: Home Clinical Impression: Laceration of left index finger Qualifiers: Encounter type: initial encounter Damage to nail status: with damage Foreign body presence: without foreign body Qualified Code(s): S61.311A - Laceration without foreign body of left index finger with damage to nail, initial encounter Condition: Stable Prescriptions: No Action bisoprolol fumarate 5 mg tablet 10 mg PO DAILY 30 Days Qty: 60 0RF ondansetron HCl 4 mg tablet 4 mg PO Q6H PRN (Reason: nausea and vomiting) Qty: 90 0RF Rx Instructions: not picked up as of 01/31/23 ibuprofen 600 mg tablet 600 mg PO TID PRN (Reason: pain) 10 Days Qty: 30 0RF albuterol sulfate [ProAir HFA] 90 mcg/actuation HFA aerosol inhaler 2 puff inhalation QID PRN (Reason: shortness of breath or wheezing) Qty: 8.5 6RF budesonide-formoterol [Symbicort] 160-4.5 mcg/actuation HFA aerosol inhaler 2 puff inhalation Q12H Qty: 10.2 6RF cholecalciferol (vitamin D3) 25 mcg (1,000 unit) capsule 25 mcg PO DAILY 90 Days Qty: 90 2RF lisinopril 5 mg tablet 5 mg PO DAILY Qty: 30 3RF nitroglycerin 0.4 mg tablet, sublingual 0.4 mg sublingual Q5M PRN (Reason: chest pain) Qty: 14 0RF Rx Instructions: do not exceed 3 doses per episode duloxetine 20 mg capsule,delayed release(DR/EC) 20 mg PO DAILY 30 Days Qty: 30 3RF benzonatate 100 mg capsule 200 mg PO TID PRN (Reason: cough) 30 Days Qty: 180 3RF Vitamin B-12 1,000 mcg Tablet 2,000 mcg PO DAILY doxepin 10 mg capsule 10 mg PO BEDTIME simvastatin 20 mg tablet 20 mg PO BEDTIME Levsin 0.125 mg tablet 0.125 mg PO Q6H PRN (Reason: dyspepsia) Qty: 30 0RF Discharge Orders: Discharge ED (Routine); Ordered 05/05/23 Ordered By: Brynn Vega Referrals: Rosio Fontanez NP [Primary Care Provider] - Discharge Diet: Usual diet Discharge Activity: Limit activity as instructed Patient Instructions: Opioid Safety, Pain Management Activity Restrictions/Additional Instructions: Elevate hand to reduce swelling. Do not soak in any water. Take dressing off in 48 hours and clean and apply a new dressing. Follow-up in 7 to 10 days for suture removal. Watch for signs of infection. Return to the ER with any new or worsening symptoms. Coding Level of Care Code ED Research Compliance Specialist for Chris Wills
[2023-05-05 15:59] VITALS: BP 160/95; PULSE 75; O2SAT 100
== END 2023-05-05 16:00 | disposition home or self-care (01) ==
LOC: ER 17:06
PROVIDERS: Emergency Provider Physician Assistant; PCP Nurse Practitioner Family
DX: S61.311A Laceration without foreign body of left index finger with damage to nail, initial encounter (principal); Z79.899 Other long term (current) drug therapy; W26.0XXA Contact with knife, initial encounter
CPT/HCPCS: 12001; 99282

== ENCOUNTER 2023-07-23 12:16 | Emergency (ER) | payer OTHER, SELFPAY ==
[2023-07-23 12:33] VITALS: BP 181/92; PULSE 64; RESP 18; TEMP 36.8; O2SAT 100; BMI 19.3
--- NOTE | 2023-07-23 13:01 | XR_ITS ---
WS: [id number] Exam: XR hip RT 2-3V wo/w pel* [id number] Date/Time of Exam: 07/23/2023 1:15 PM Reason For Exam: trauma Comparison 12/25/2021. No fracture or dislocation. 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 Normal soft tissues. IMPRESSION: 1. No fracture or dislocation. Degenerative changes.
[2023-07-23] MEDS: ketorolac 30 mg/mL INJ 60 MG IM (13:15)
--- NOTE | 2023-07-23 13:16 | ED_ITS ---
HPI - Extremity Problem General: Chief complaint: Extremity Problem,Nontraumatic Stated complaint: hip pain Time Seen by Provider: 07/23/23 12:39 Source: patient Mode of arrival: ambulatory History of Present Illness: 52-year-old female who was playing with the dog 3 days ago, she went to kick a ball felt a snapping sensation in her right hip. She has been able to bear weight since then but still feels a snapping popping sensation in the lateral aspect of her hip with severe pain with ambulation she does have quite a bit of discomfort. She did not fall did not strike her head did not lose consciousness. Complaint: joint pain Onset (ago): day(s) (3) Pain Consistency: constant Location: right and lower extremity (Hip) Quality: sharp Relieving factors: rest Exacerbating factors: range of motion, weight bearing and palpation Associated symptoms: Deny arthralgias, chest pain, fever(s), myalgias, rash or short of breath Review of Systems Const: Denies: fever(s) Card: Denies: chest pain Resp: Denies: dyspnea GI: Denies: abdominal pain : Denies: dysuria, urinary frequency or urinary urgency Musc: Denies: neck pain or back pain Skin/Breast: Denies: rash PFSH ED PFSH: Medical History No pertinent family history Surgical History H/O: hysterectomy S/P appendectomy Social History Smoking and tobacco/nicotine status: never used tobacco/nicotine Physical Exam Const: GENERAL APPEARANCE: cooperative and comfortable ORIENTATION/CONSCIO USNESS: Yes awake, Yes oriented to person, Yes oriented to place and Yes oriented to time HENMT: COMMON NORMALS: normocephalic, atraumatic and hearing grossly normal bilaterally HEAD & SCALP: normocephalic and atraumatic Resp: COMMON NORMALS: normal respiratory effort, No retractions, No use of accessory muscles and clear to auscultation bilaterally AUSCULTATION: clear to auscultation bilaterally Cardio: COMMON NORMALS: regular rate, regular rhythm and No murmurs present (Cardio) RATE: regular rate RHYTHM: regular rhythm GI: COMMON NORMALS: Soft to palpation and No hepatosplenomegaly present AUSCULTATION: Yes normoactive bowel sounds PALPATION: Yes Soft to palpation, No Tenderness to palpation present (GI), No Guarding due to palpation present (GI) and Yes No hepatosplenomegaly present Extremity: COMMON NORMALS: normal to inspection, capillary refill normal, no clubbing, cyanosis or edema, no calf tenderness and no pedal edema OTHER: Pain with palpation over the greater trochanter of the right hip. No pain or joint effusion at the knee normal range of motion at the knee and ankle on the right. Neurovascularly intact. Minimal discomfort with flexion at the knee with internal/external rotation Neuro: SENSORIUM/ORIENTATION: Yes oriented to person, Yes oriented to place and Yes oriented to time Skin: COMMON NORMALS: no rashes or lesions noted GENERAL SKIN EXAM: no rashes or lesions noted Course Vital Signs: Vital signs: Vital Signs Temperature 98.2 F 07/23/23 12:33 Pulse Rate 64 07/23/23 12:33 Respiratory Rate 18 07/23/23 12:33 Blood Pressure 181/92 07/23/23 12:33 Pulse Oximetry 100 07/23/23 12:33 Oxygen Delivery Me thod Room Air 07/23/23 12:33 MDM - Extremity (Nontraumatic) Medical Decision Making No fractures noted on plain x-ray. Pain with palpation over the greater trochanter. Suspect patient has a trochanteric bursitis start on anti- inflammatories follow-up with primary care return if has further problems. Medical Records I reviewed the patient's medical records. Lab Data I reviewed the patient's lab results. All radiology interpretation(s) finalized by discharge Discharge Plan Discharge Patient Disposition: Home Clinical Impression: Greater trochanteric bursitis of right hip Condition: Stable Prescriptions: New prednisone 20 mg tablet 20 mg PO TID Qty: 15 0RF Rx Instructions: 1 p.o. 3 times daily x3 days, 1 p.o. twice daily x2 days, 1 p.o. 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
== END 2023-07-23 13:58 | disposition home or self-care (01) ==
PROVIDERS: Emergency Provider Family Medicine; PCP Nurse Practitioner Family
DX: M70.61 Trochanteric bursitis, right hip (principal)
CPT/HCPCS: 73502; 96372; 99284; J1885

== ENCOUNTER → 2023-10-29 11:48 | Outpatient (BNVA) | payer OTHER, SELFPAY | PROVIDERS: PCP Nurse Practitioner Family; Visit Provider Nurse Practitioner Family | DX: R00.2 Palpitations (principal); E03.9 Hypothyroidism, unspecified; J06.9 Acute upper respiratory infection, unspecified; E78.00 Pure hypercholesterolemia, unspecified; I10 Essential (primary) hypertension | CPT/HCPCS: 80053; 80061; 84443; 87486; 87581; 87633 ==

== ENCOUNTER → 2023-11-01 11:58 | Outpatient (BNVA) | payer OTHER, SELFPAY | PROVIDERS: PCP Nurse Practitioner Family; Visit Provider Nurse Practitioner Family | DX: M47.897 Other spondylosis, lumbosacral region (principal); M54.50 Low back pain, unspecified | CPT/HCPCS: 72100 ==

== ENCOUNTER 2023-12-15 15:01 | Emergency (ER) | payer OTHER, SELFPAY ==
[2023-12-15 15:05] VITALS: BP 141/81; PULSE 71; RESP 18; TEMP 36.4; O2SAT 97; BMI 21.2
--- NOTE | 2023-12-15 15:09 | ED_ITS ---
HPI - Back Pain/Injury General: Chief Complaint: Back Pain/Injury Stated Complaint: back pain Time Seen by Provider: 12/15/23 15:07 History of Present Illness: 53-year-old female comes in today for co mplaints of low back pain. 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 Patient reports over the last 2 days she has had increased pain and discomfort to the back. Patient does have known intervertebral disc disease. Patient reports using acetaminophen and ibuprofen to help control pain. Patient does take steroids occasionally for COPD, patient uses inhalers routinely. Review of Systems General: Reports: 10 or more systems reviewed and unremarkable except in HPI and below Musc: Reports: back pain PFSH ED PFSH: Medical History No pertinent family history Surgical History H/O: hysterectomy S/P appendectomy Social History Smoking and tobacco/nicotine status: never used tobacco/nicotine Physical Exam Const: COMMON NORMALS: alert HENMT: COMMON NORMALS: normocephalic HEAD & SCALP: normocephalic Neck/C-Spine: COMMON NORMALS: full ROM Chest: COMMONS NORMALS: normal inspection of the chest Resp: COMMON NORMALS: normal respiratory effort and clear to auscultation bilaterally AUSCULTATION: clear to auscultation bilaterally Cardio: COMMON NORMALS: regular rate and regular rhythm RATE: regular rate RHYTHM: regular rhythm GI: COMMON NORMALS: non-tender Back/Pelvis: LUMBAR SPINE/LOWER BACK: Yes lumbar spinal tenderness Lumbar spinal tenderness location: L4 and L5 Extremity: COMMON NORMALS: normal to inspection Neuro: SENSORIUM/ORIENTATION: Yes alert Skin: COMMON NORMALS: turgor normal GENERAL SKIN EXAM: turgor normal Course Vital Signs: Vital signs: Vital Signs Temperature 97.6 F 12/15/23 15:05 Pulse Rate 73 12/15/23 16:09 Respiratory Rate 16 12/15/23 16:09 Blood Pressure 121/88 12/15/23 16:09 Pulse Oximetry 98 12/15/23 16:09 Oxygen Delivery Me thod Room Air 12/15/23 15:05 MDM - Back Pain/Injury Medical Decision Making 53-year-old female comes in today for complaints of low back pain. On exam patient has some vertebral tenderness in the L4-L5 area. Differential diagnosis includes not limited to vertebral fracture, intervertebral disc disease, facet arthropathy, malingering. X-rays noted some degenerative disc disease of the L5-S1. No acute fractures were noted. Recommended follow-up with orthopedic spine for further evaluation and treatment. Patient will be treated at this time with steroids and pain medication. Patient reported understanding of care plan need for follow-up or return to the ER. Labs Radiology Impressions Lumbar Spine X-Ray 12/15/23 15:13 IMPRESSION: No acute findings. Mild multilevel DJD throughout the lumbar spine. All radiology interpretation(s) finalized by discharge Discharge Plan Discharge Patient Disposition: Home Clinical Impression: Intervertebral disc degeneration Qualifiers: Spinal region: lumbosacral Qualified Code(s): M51.37 - Other intervertebral disc degeneration, lumbosacral region Condition: Stable Prescriptions: New prednisone 20 mg tablet 20 mg PO BID 5 Days Qty: 10 0RF naproxen 500 mg tablet 500 mg PO BID Qty: 20 0RF hydrocodone-acetaminophen 5-325 mg tablet 1 tab PO Q8H PRN (Reason: pain (scale score 7-10)) Qty: 6 0RF No Action albuterol sulfate 90 mcg/actuation HFA aerosol inhaler 1 inh inhalation QID PRN (Reason: shortness of breath or wheezing) Qty: 8.5 2RF ketorolac 10 mg tablet 10 mg PO QID PRN (Reason: pain) 5 Days Qty: 20 0RF cyclobenzaprine 10 mg tablet 10 mg PO TID PRN (Reason: muscle spasm) Qty: 90 0RF lidocaine 5 % adhesive patch,medicated 2 patch topical DAILY Qty: 30 11RF Rx Instructions: leave on most painful area for up to 12 hrs Airsupra 90-80 mcg/actuation HFA aerosol inhaler 2 inh inhalation 6XD PRN (Reason: shortness of breath) Qty: 10.7 11RF methylprednisolone [Medrol (Reji)] 4 mg tablets,dose pack See Rx Instructions PO PER PKG DIR Qty: 21 0RF Rx Instructions: PO PER PKG DIR azithromycin [Zithromax] 250 mg tablet See Rx Instructions PO .COMPLEX Qty: 6 0RF Rx Instructions: For 250 mg dose pack: take 500 mg today (day 1), then 250 mg for 4 days (days 2-5) PO Discharge Orders: Discharge ED (Routine); Ordered 12/15/23 Ordered By: Nelson Carl Referrals: Rosio Fontanez NP [Primary Care Provider] - Discharge Diet: Usual diet Discharge Activity: Increase activity as tolerated Patient Instructions: Opioid Safety, Pain Management Activity Restrictions/Additional Instructions: Activity as tolerated. Take medications as directed. Drink plenty of water and fluids with medication. Follow-up with primary care for further instructions. Case management will contact you for follow-up appointment with orthopedic spine for further evaluation and treatment. 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
--- NOTE | 2023-12-15 15:13 | XRR_ITS ---
PROCEDURE INFORMATION: Exam: XR Lumbosacral Spine Exam date and time: 12/15/2023 3:23 PM Age: 53 years old Clinical indication: Low back pain; Additional info: Increase chronic back pain, no fall TECHNIQUE: Imaging protocol: Radiologic exam of the lumbosacral spine. Views: 2 or 3 views. COMPARISON: CR XR hip RT 2-3V wo/w pel* [id number] 07/23/2023 1:13 PM FINDINGS: Bones/joints: No acute fracture. Normal alignment. Mild multilevel endplate degenerative changes throughout the lumbar spine. Soft tissues: Unremarkable. XR/XR lumbar spine 2-3V* [id number] IMPRESSION: No acute findings. Mild multilevel DJD throughout the lumbar spine.
[2023-12-15] MEDS: ketorolac 30 mg/mL INJ IM (15:20)
[2023-12-15] MEDS: HYDROcodone-acetaminophen 10-325 mg Tablet 1 TAB PO (15:20)
[2023-12-15] MEDS: dexamethasone 10 mg/mL INJ IM (15:20)
[2023-12-15 16:09] VITALS: BP 121/88; PULSE 73; RESP 16; O2SAT 98
--- NOTE | 2023-12-16 07:07 | DCPLANNER ---
A message was sent to [facility] on 12/16/23 at [id number] to contact patient for appt
== END 2023-12-15 16:09 | disposition home or self-care (01) ==
PROVIDERS: Emergency Provider Nurse Practitioner Family; PCP Nurse Practitioner Family
DX: M51.37 Other intervertebral disc degeneration, lumbosacral region (principal)
CPT/HCPCS: 72100; 96372; 99284; J1100; J1885

== ENCOUNTER → 2023-12-26 10:13 | Outpatient (BNVA) | payer OTHER, SELFPAY | PROVIDERS: PCP Nurse Practitioner Family; Referring Provider Nurse Practitioner Family; Visit Provider Orthopaedic Surgery | DX: M48.062 Spinal stenosis, lumbar region with neurogenic claudication (principal); M54.9 Dorsalgia, unspecified; G89.29 Other chronic pain | CPT/HCPCS: 72110 ==

== ENCOUNTER 2024-04-11 19:10 | Emergency (ER) | payer OTHER, SELFPAY ==
[2024-04-10 09:32] VITALS: BP 128/80; BMI 20.8
[2024-04-11 19:18] VITALS: BP 172/84; PULSE 82; RESP 16; TEMP 36.7; O2SAT 99; BMI 20.8
[2024-04-11 20:13] VITALS: BP 174/100; PULSE 82; O2SAT 100
--- NOTE | 2024-04-11 20:38 | XRR_ITS ---
PROCEDURE INFORMATION: Exam: XR Abdomen Exam date and time: 04/11/2024 9:18 PM Age: 53 years old Clinical indication: Abdominal pain; Generalized; Prior surgery; Surgery date: 6+ months; Surgery type: Csection x 3; Hysterectomy; Appy; Patient HX: Rlq pain with distention; Diarrhea; Cough epigastric pain TECHNIQUE: Imaging protocol: Radiologic exam of the abdomen. Views: 2 Views. Upright and supine views. COMPARISON: CT abdomen pelvis w con* [id number] 01/31/2023 11:38 AM FINDINGS: Gastrointestinal tract: Normal. No bowel dilation. Intraperitoneal space: Normal. No free air. Bones/joints: Unremarkable for age. XR/XR acute abdomen series [id number] IMPRESSION: Unremarkable chest and abdomen
[2024-04-11 20:50] LABS: Basophils % 0.4 %; Eosinophils # 0.2 10^3/uL (0.0-0.8); Eosinophils % 1.5 %; Hematocrit 39.4 % (36-47); Lymphocytes # 2.2 10^3/uL (0.8-4.8); Lymphocytes % 20.2 %; Mean Corpuscular HGB Conc 33.2 g/dL (30-55); Mean Corpuscular Hemoglobin 33.7 pg (27-33); Mean Corpuscular Volume 101.3 fl (85-98); Mean Platelet Volume 9.2 fL (7.4-10.4); Monocytes # 0.6 10^3/uL (0.2-0.9); Monocytes % 5.8 %; Neutrophils # 7.79 10^3/uL (1.8-7.7); Neutrophils % 71.7 %; Nucleated Red Blood Cells % 0 %; Platelet Count 314 10^3/cmm (157-399); Red Blood Count 3.89 10^6/uL (3.85-5.65); Red Cell Distribution Width 13.1 % (12.1-15.1); White Blood Count 10.85 10^3/uL (3.29-11.43)
[2024-04-11 20:50] LABS: Add Urine Microscopic? NO; Charge for UA Resulting for Rev
[2024-04-11 20:54] LABS: Bilirubin Urine 1+ (Negative); Blood Urine Neg (Negative); Glucose Urine UA Norm (Normal); Ketones Urine 1+ (Negative); Leukocyte Esterase Urine Negative (Negative); Nitrate Urine Negative (Negative); Protein Urine Neg (Negative); Urine Appearance Clear (CLEAR); Urine Color Dark Yellow (Yellow); Urobilinogen Urine 4 mg/dL (Negative); pH Urine 5 (5-7)
[2024-04-11 21:05] LABS: Alanine Aminotransferase 11 U/L (0-33); Albumin Level 4.8 g/dL (3.5-5.2); Alkaline Phosphatase 83 U/L (35-105); Anion Gap 15.9 (5-19); Aspartate Amino Transferase 15 U/L (0-32); Blood Urea Nitrogen 13 mg/dL (6-20); Calcium 9.3 mg/dL (8.5-10.5); Carbon Dioxide 25 mmol/L (22-29); Chloride 107 mmol/L (98-107); Creatinine Clr Calc Pharmacy 86.8639; Globulin 2.9 g/dL (1.3-4.6); Glomerular Filtration Rate 104.6 mL/min (90-130); Glucose 91 mg/dL (65-115); Lactic Sepsis W/Reflex 0.7 mmol/L (0.5-2.2); Osmolality Calculated 298 mOsm/kg (285-295); Potassium 3.9 mmol/L (3.5-5.1); Sodium 144 mmol/L (136-145); Total Bilirubin 0.4 mg/dL (0.15-1.2); Total Protein 7.7 g/dL (6.6-8.7)
--- NOTE | 2024-04-11 21:06 | CTR_ITS ---
PROCEDURE INFORMATION: Exam: CT Abdomen And Pelvis With Contrast Exam date and time: 04/11/2024 10:48 PM Age: 53 years old Clinical indication: Bloating; Abdominal pain; Localized; Prior surgery; Surgery date: 6+ months; Surgery type: Csection x2. Exploratory laparotomy. Patient HX: Lower abd pain with distention x 2 weeks. ; Additional info: Abdominal pain with distension TECHNIQUE: Imaging protocol: Computed tomography of the abdomen and pelvis with contrast. Radiation optimization: All CT scans at this facility use at least one of these dose optimization techniques: automated exposure control; mA and/or kV adjustment per patient size (includes targeted exams where dose is matched to clinical indication); or iterative reconstruction. Contrast material: OMNI 350; Contrast volume: 80 ml; Contrast route: INTRAVENOUS (IV); COMPARISON: CT abdomen pelvis w con* [id number] 01/31/2023 11:38 AM RADIATION DOSE METRICS: Total DLP (mGy-cm): 305.46 FINDINGS: Lungs: The lung bases are clear. Liver: Normal. No mass. Gallbladder and biliary ducts: Normal. No calcified stones. No ductal dilation. Pancreas: Normal. No ductal dilation. Spleen: Normal. No splenomegaly. Adrenal glands: Normal. No mass. Kidneys and ureters: Normal. No hydronephrosis. Stomach and bowel: No bowel obstruction or ileus. Appendix: No evidence of appendicitis. Intraperitoneal space: No free fluid, free air or abscess. Vasculature: Unremarkable. No abdominal aortic aneurysm. Lymph nodes: Unremarkable. No enlarged lymph nodes. Urinary bladder: Mildly distended urinary bladder up to 9.3 cm. Reproductive: Unremarkable as visualized. Bones/joints: Chronic degenerative disc disease is greatest at L5-S1. Soft tissues: Unremarkable. CT/CT abdomen pelvis w con* [id number] IMPRESSION: 1. No acute abdominopelvic findings. 2. Chronic and incidental findings as described
--- NOTE | 2024-04-11 21:06 | ED_ITS ---
Documented by User: Chris Salazar 04/11/24 22:30 HPI - Abdominal Pain 2 General: Chief Complaint: Abdominal Pain Stated Complaint: Nausea and bloating Time Seen by Provider: 04/11/24 20:10 History of Present Illness: 53-year-old female presents emergency de partment chief complaint of acute on chronic abdominal pain and distention patient reports an ongoing issue of 2-week history of progressive abdominal distention and pain diffusely nature patient reports prior to having her most recent bowel movement this morning she was having issues with diarrhea patient does not endorse any blood in her stool or her emesis. Patient reports that she feels like she is she has significant abdominal cramps patient does report a prior history of abdominal issues as well as multiple abdominal surgeries but does not endorse any known history of any hernias or adhesions. Associated Symptoms: Reports bloating, change in bowel habits and nausea; Denies chills, fever(s), hematochezia and vomiting Review of Systems 2 General: Reports: 10 or more systems reviewed and unremarkable except in HPI and below Const: Denies: fever(s), chills, fatigue or malaise Eyes: Denies: change in vision or blurry vision ENMT: Denies: throat pain, uvular edema or enlarged tonsils Card: Denies: chest pain or palpitations Resp: Denies: dyspnea or productive cough GI: Reports: abdominal pain, nausea, bloating, change in bowel habits and pain on defecation; Denies: vomiting or hematochezia : Denies: flank pain Musc: Denies: extremity pain or extremity swelling Skin/Breast: Denies: rash or pruritus Neuro: Denies: headache(s) Psych: Denies: anxiety or depression Chavo/Lymph: Denies: easy bleeding All/Imm: Denies: urticaria, throat swelling or facial swelling PFSH ED 2 PFSH: Medical History Bipolar 2 disorder, major depressive episode Following information retrieved/edited from Behavior Assessment Report, completed on 12/17/23: Prachi scored a 24 on the PHQ-9. She reports that nearly every day, for the past two weeks, she has experienced little interest/pleasure in doing things, has felt down/depressed/hopeless, has had trouble sleeping, has felt tired/had little energy, has had poor appetite, has felt badly about herself, has had trouble concentrating on things, has been fidgety/restless. She reports that these symptoms have made it ?extremely difficult? for her to do her work, take care of things at home, and/or get along with other people. Prachi denied having any thoughts that she would be better off or of hurting herself. SOHAIL (generalized anxiety disorder) Following information retrieved/edited from Behavior Assessment Report, completed on 12/17/23: Prachi reports that she has experienced the following symptoms during the past month: cry easily, sweating palms, fatigue, bad dreams, mind goes blank, difficulty concentrating, trouble making decisions, trouble remembering, thoughts hard to dismiss, trouble sleeping, easily annoyed/irritable, loss of sexual desire, nervous feeling, excessive worries/fears, excessive fear of crowds, no interest in things, feeling inferior, change in personality, work difficulties, thoughts of harming others, problems chewing/swallowing, nausea/vomiting, diarrhea/constipation, multiple medical problems, eating disorder, weight gain/loss. Prachi reported on the Mejias Psychological Distress Scale that during the past four weeks, all of the time, she felt tired out for no good reason, nervous, so restless she could not sit still, depressed, that everything is an effort, and worthless. She reported that most of the time she felt so nervous that nothing could calm her down, hopeless, restless/fidgety, and so sad that nothing could cheer her up. Prachi scored a 19 on the SOHAIL-7. She reports that nearly every day, for the past two weeks, she has felt nervous/anxious/on edge, has not been able to stop/control worry, has worried too much about different things, has had trouble relaxing, has been so restless that it is hard to sit still, has been easily annoyed/irritable. Prachi reports several days of feeling afraid that something awful might happen. Psychiatric care No pertinent family history Surgical History H/O: hysterectomy S/P appendectomy Social History Smoking and tobacco/nicotine status: current every day tobacco/nicotine user (quit for 6 months but started again.) Physical Exam 2 Const: COMMON NORMALS: patient oriented x3 and healthy appearing; apparent distress (Patient appears to be in moderate distress due to pain.) HENMT: COMMON NORMALS: normocephalic and atraumatic HEAD & SCALP: n ormocephalic and atraumatic THROAT: no uvular edema Eye: COMMON NORMALS: Equal, round and reactive pupils present and EOMs intact bilaterally PUPIL: Yes Equal, round and reactive pupils present Neck/C-Spine: COMMON NORMALS: full ROM, supple and no JVD Lymph: LYMPHATIC: no lymphadenopathy noted Chest: COMMONS NORMALS: normal inspection of the chest and normal palpation of entire chest wall Resp: COMMON NORMALS: normal respiratory effort, No retractions and clear to auscultation bilaterally EFFORT & INSPECTION: Yes able to speak in complete sentences and Yes symmetric chest movement AUSCULTATION: clear to auscultation bilaterally Cardio: COMMON NORMALS: no JVD, regular rate and regular rhythm RATE: r egular rate RHYTHM: regular rhythm GI: COMMON NORMALS: Soft to palpation and no bruits (Moderate abdominal distention with guarding appreciated nonspecific); negative for Normal to inspection, nondistended, normoactive bowel sounds present and negative for non-tender INSPECTION: Yes normal to inspection P ALPATION: Yes Soft to palpation : COMMON NORMALS: Yes no CVA tenderness BLADDER/KIDNEY EXAM: Yes no CVA tenderness Back/Pelvis: COMMON NORMALS: no CVA tenderness Extremity: COMMON NORMALS: normal to inspection and full ROM Neuro: COMMON NORMALS: patient oriented x3, CN's II-XII intact bilaterally, moves all extremities and no focal motor deficits Psych: COMMON NORMALS: mental status grossly normal, Normal thought process present, cooperative and normal affect THOUGHT PROCESS: Normal thought process present Skin: COMMON NORMALS: no rashes or lesions noted GENERAL SKIN EXAM: no rashes or lesions noted Course 2 Vital Signs: Vital signs: Vital Signs Temperature 98.0 F 04/11/24 19:18 Pulse Rate 79 04/11/24 23:06 Respiratory Rate 18 04/11/24 23:06 Blood Pressure 151/88 04/11/24 23:06 Pulse Oximetry 98 04/11/24 23:06 Oxygen Delivery Me thod Room Air 04/11/24 23:06 MDM - Abdominal Pain Medical Decision Making Due to patient's symptoms and condition IV is established IV fluids Hydration lab work imaging obtained underlying concerns of bowel obstruction versus constipation versus others prominent we will continue to follow. Currently awaiting a CT of the abdomen pelvis with IV contrast to be obtained this patient was signed to my colleague Dr. Blake at 2230 anticipate discharge home pending imaging. Lab Data 04/11/24 20:37 04/11/24 20:37 Labs/Radiology: Radiology Impressions Chest/Abdomen X-ray 04/11/24 20:38 IMPRESSION: Unremarkable chest and abdomen Abdomen/Pelvis CT 04/11/24 21:06 IMPRESSION: 1. No acute abdominopelvic findings. 2. Chronic and incidental findings as described Laboratory Results WBC 10.85 10^3/uL (3.29-11.43) 04/11/24 20:37 RBC 3.89 10^6/uL (3.85-5.65) 04/11/24 20:37 Hgb 13.10 g/dL (11.27-16.99) 04/11/24 20:37 Hct 39.4 % (36-47) 04/11/24 20:37 MCV 101.3 fl (85-98) H 04/11/24 20:37 MCH 33.7 pg (27-33) H 04/11/24 20:37 MCHC 33.2 g/dL (30-55) 04/11/24 20:37 RDW 13.1 % (12.1-15.1) 04/11/24 20:37 Plt Count 314 10^3/cmm (157-399) 04/11/24 20:37 MPV 9.2 fL (7.4-10.4) 04/11/24 20:37 Neut % (Auto) 71.7 % 04/11/24 20:37 Lymph % (Auto) 20.2 % 04/11/24 20:37 Rooks % (Auto) 5.8 % 04/11/24 20:37 Eos % (Auto) 1.5 % 04/11/24 20:37 Baso % (Auto) 0.4 % 04/11/24 20:37 Neut # (Auto) 7.79 10^3/uL (1.8-7.7) H 04/11/24 20:37 Lymph # (Auto) 2.2 10^3/uL (0.8-4.8) 04/11/24 20:37 Rooks # (Auto) 0.6 10^3/uL (0.2-0.9) 04/11/24 20:37 Eos # (Auto) 0.2 10^3/uL (0.0-0.8) 04/11/24 20:37 Baso # (Auto) 0.0 10^3/uL (0.0-0.1) 04/11/24 20:37 Nucleated RBC % (auto) 0 % 04/11/24 20:37 Nucleated RBCs # 0.0 /100WBC 04/11/24 20:37 Sodium 144 mmol/L (136-145) 04/11/24 20:37 Potassium 3.9 mmol/L (3.5-5.1) 04/11/24 20:37 Chloride 107 mmol/L (98-107) 04/11/24 20:37 Carbon Dioxide 25 mmol/L (22-29) 04/11/24 20:37 Anion Gap 15.9 (5-19) 04/11/24 20:37 BUN 13 mg/dL (6-20) 04/11/24 20:37 Creatinine 0.6 mg/dL (0.5-0.9) 04/11/24 20:37 GFR Calculation 104.6 mL/min (90-130) 04/11/24 20:37 Glucose 91 mg/dL (65-115) 04/11/24 20:37 Calculated Osmolality 298 mOsm/kg (285-295) H 04/11/24 20:37 Lactic Acid 0.7 mmol/L (0.5-2.2) 04/11/24 20:37 Calcium 9.3 mg/dL (8.5-10.5) 04/11/24 20:37 Total Bilirubin 0.4 mg/dL (0.15-1.2) 04/11/24 20:37 AST 15 U/L (0-32) 04/11/24 20:37 ALT 11 U/L (0-33) 04/11/24 20:37 Alkaline Phosphatase 83 U/L (35-105) 04/11/24 20:37 C-Reactive Protein 3.0 mg/L (0.0-4.9) 04/11/24 20:37 Total Protein 7.7 g/dL (6.6-8.7) 04/11/24 20:37 Albumin 4.8 g/dL (3.5-5.2) 04/11/24 20:37 Globulin 2.9 g/dL (1.3-4.6) 04/11/24 20:37 Urine Color Dark yellow (Yellow) A 04/11/24 20:38 Urine Appearance Clear (CLEAR) 04/11/24 20:38 Urine pH 5 (5-7) 04/11/24 20:38 Ur Specific [place] 1.020 (1.005-1.030) 04/11/24 20:38 Urine Protein Neg (Negative) 04/11/24 20:38 Urine Glucose (UA) Norm (Normal) 04/11/24 20:38 Urine Ketones 1+ (Negative) H 04/11/24 20:38 Urine Blood Neg (Negative) 04/11/24 20:38 Urine Nitrate Negative (Negative) 04/11/24 20:38 Urine Bilirubin 1+ (Negative) H 04/11/24 20:38 Urine Urobilinogen 4 mg/dL (Negative) H 04/11/24 20:38 Ur Leukocyte Esterase Negative (Negative) 04/11/24 20:38 All radiology interpretation(s) finalized by discharge Discharge Plan Discharge Patient Disposition: Home Clinical Impression: Abdominal pain, Constipation Condition: Stable Prescriptions: New lactulose 10 gram/15 mL solution 10 g PO TID PRN (Reason: constipation) Qty: 237 0RF No Action fluoxetine 20 mg capsule 20 mg PO DAILY Qty: 30 0RF Rx Instructions: Take one capsule by mouth every morning olanzapine 10 mg tablet 10 mg PO DAILY Qty: 30 0RF Rx Instructions: Take one capsule by mouth daily at bedtime albuterol sulfate 90 mcg/actuation HFA aerosol inhaler 1 inh inhalation QID PRN (Reason: shortness of breath or wheezing) Qty: 8.5 2RF Airsupra 90-80 mcg/actuation HFA aerosol inhaler 2 inh inhalation 6XD PRN (Reason: shortness of breath) Qty: 10.7 11RF Discharge Orders: Discharge ED (Routine); Ordered 04/12/24 Ordered By: Marquez Blake Referrals: Rosio Fontanez NP [Primary Care Provider] - 1-3 days Patient Instructions: Constipation (ED), Abdominal Pain (ED), Opioid Safety, Pain Management Activity Restrictions/Additional Instructions: Lab work and imaging did not find an acute cause of abdominal pain this evening. You are rather constipated. Medication should help with this. Once bowel movements become soft, you can stop the medication or decrease its usage. Follow-up with your doctor this week. Return to the ER for vomiting liquids or medications despite treatment, fever greater than 100, worsening pain despite treatment, other concerning symptoms. Coding Level of Care Code ED Division Manager for [facility] Fwd Documented by User: Marquez Blake, 04/12/24 04:45 HPI - Abdominal Pain 2 General: Chief Complaint: Abdominal Pain Stated Complaint: Nausea and bloating Time Seen by Provider: 04/11/24 20:10 PFS ED 2 PFSH: Medical History Bipolar 2 disorder, major depressive episode Following information retrieved/edited from Behavior Assessment Report, completed on 12/17/23: Prachi scored a 24 on the PHQ-9. She reports that nearly every day, for the past two weeks, she has experienced little interest/pleasure in doing things, has felt down/depressed/hopeless, has had trouble sleeping, has felt tired/had little energy, has had poor appetite, has felt badly about herself, has had trouble concentrating on things, has been fidgety/restless. She reports that these symptoms have made it ?extremely difficult? for her to do her work, take care of things at home, and/or get along with other people. Prachi denied having any thoughts that she would be better off or of hurting herself. SOHAIL (generalized anxiety disorder) Following information retrieved/edited from Behavior Assessment Report, completed on 12/17/23: Prachi reports that she has experienced the following symptoms during the past month: cry easily, sweating palms, fatigue, bad dreams, mind goes blank, difficulty concentrating, trouble making decisions, trouble remembering, thoughts hard to dismiss, trouble sleeping, easily annoyed/irritable, loss of sexual desire, nervous feeling, excessive worries/fears, excessive fear of crowds, no interest in things, feeling inferior, change in personality, work difficulties, thoughts of harming others, problems chewing/swallowing, nausea/vomiting, diarrhea/constipation, multiple medical problems, eating disorder, weight gain/loss. Prachi reported on the Mejias Psychological Distress Scale that during the past four weeks, all of the time, she felt tired out for no good reason, nervous, so restless she could not sit still, depressed, that everything is an effort, and worthless. She reported that most of the time she felt so nervous that nothing could calm her down, hopeless, restless/fidgety, and so sad that nothing could cheer her up. Prachi scored a 19 on the SOHAIL-7. She reports that nearly every day, for the past two weeks, she has felt nervous/anxious/on edge, has not been able to stop/control worry, has worried too much about different things, has had trouble relaxing, has been so restless that it is hard to sit still, has been easily annoyed/irritable. Prachi reports several days of feeling afraid that something awful might happen. Psychiatric care No pertinent family history Surgical History H/O: hysterectomy S/P appendectomy Social History Smoking and tobacco/nicotine status: current every day tobacco/nicotine user (quit for 6 months but started again.) Course 2 Vital Signs: Vital signs: Vital Signs Temperature 98.0 F 04/11/24 19:18 Pulse Rate 79 04/11/24 23:06 Respiratory Rate 18 04/11/24 23:06 Blood Pressure 151/88 04/11/24 23:06 Pulse Oximetry 98 04/11/24 23:06 Oxygen Delivery Me thod Room Air 04/11/24 23:06 MDM - Abdominal Pain Medical Decision Making Due to patient's symptoms and condition IV is established IV fluids Hydration lab work imaging obtained underlying concerns of bowel obstruction versus constipation versus others prominent we will continue to follow. Currently awaiting a CT of the abdomen pelvis with IV contrast to be obtained this patient was signed to my colleague Dr. Blake at 2230 anticipate discharge home pending imaging. Received in checkout at shift change. CT of the abdomen pelvis is not remarkable for acute abdominal pelvic findings. Laboratory is not remarkable. She will be allowed home. She will be prescribed lactulose to help with constipation. Lab Data 04/11/24 20:37 04/11/24 20:37 Labs/Radiology: Radiology Impressions Chest/Abdomen X-ray 04/11/24 20:38 IMPRESSION: Unremarkable chest and abdomen Abdomen/Pelvis CT 04/11/24 21:06 IMPRESSION: 1. No acute abdominopelvic findings. 2. Chronic and incidental findings as described Laboratory Results WBC 10.85 10^3/uL (3.29-11.43) 04/11/24 20:37 RBC 3.89 10^6/uL (3.85-5.65) 04/11/24 20:37 Hgb 13.10 g/dL (11.27-16.99) 04/11/24 20:37 Hct 39.4 % (36-47) 04/11/24 20:37 MCV 101.3 fl (85-98) H 04/11/24 20:37 MCH 33.7 pg (27-33) H 04/11/24 20:37 MCHC 33.2 g/dL (30-55) 04/11/24 20:37 RDW 13.1 % (12.1-15.1) 04/11/24 20:37 Plt Count 314 10^3/cmm (157-399) 04/11/24 20:37 MPV 9.2 fL (7.4-10.4) 04/11/24 20:37 Neut % (Auto) 71.7 % 04/11/24 20:37 Lymph % (Auto) 20.2 % 04/11/24 20:37 Rooks % (Auto) 5.8 % 04/11/24 20:37 Eos % (Auto) 1.5 % 04/11/24 20:37 Baso % (Auto) 0.4 % 04/11/24 20:37 Neut # (Auto) 7.79 10^3/uL (1.8-7.7) H 04/11/24 20:37 Lymph # (Auto) 2.2 10^3/uL (0.8-4.8) 04/11/24 20:37 Rooks # (Auto) 0.6 10^3/uL (0.2-0.9) 04/11/24 20:37 Eos # (Auto) 0.2 10^3/uL (0.0-0.8) 04/11/24 20:37 Baso # (Auto) 0.0 10^3/uL (0.0-0.1) 04/11/24 20:37 Nucleated RBC % (auto) 0 % 04/11/24 20:37 Nucleated RBCs # 0.0 /100WBC 04/11/24 20:37 Sodium 144 mmol/L (136-145) 04/11/24 20:37 Potassium 3.9 mmol/L (3.5-5.1) 04/11/24 20:37 Chloride 107 mmol/L (98-107) 04/11/24 20:37 Carbon Dioxide 25 mmol/L (22-29) 04/11/24 20:37 Anion Gap 15.9 (5-19) 04/11/24 20:37 BUN 13 mg/dL (6-20) 04/11/24 20:37 Creatinine 0.6 mg/dL (0.5-0.9) 04/11/24 20:37 GFR Calculation 104.6 mL/min (90-130) 04/11/24 20:37 Glucose 91 mg/dL (65-115) 04/11/24 20:37 Calculated Osmolality 298 mOsm/kg (285-295) H 04/11/24 20:37 Lactic Acid 0.7 mmol/L (0.5-2.2) 04/11/24 20:37 Calcium 9.3 mg/dL (8.5-10.5) 04/11/24 20:37 Total Bilirubin 0.4 mg/dL (0.15-1.2) 04/11/24 20:37 AST 15 U/L (0-32) 04/11/24 20:37 ALT 11 U/L (0-33) 04/11/24 20:37 Alkaline Phosphatase 83 U/L (35-105) 04/11/24 20:37 C-Reactive Protein 3.0 mg/L (0.0-4.9) 04/11/24 20:37 Total Protein 7.7 g/dL (6.6-8.7) 04/11/24 20:37 Albumin 4.8 g/dL (3.5-5.2) 04/11/24 20:37 Globulin 2.9 g/dL (1.3-4.6) 04/11/24 20:37 Urine Color Dark yellow (Yellow) A 04/11/24 20:38 Urine Appearance Clear (CLEAR) 04/11/24 20:38 Urine pH 5 (5-7) 04/11/24 20:38 Ur Specific [place] 1.020 (1.005-1.030) 04/11/24 20:38 Urine Protein Neg (Negative) 04/11/24 20:38 Urine Glucose (UA) Norm (Normal) 04/11/24 20:38 Urine Ketones 1+ (Negative) H 04/11/24 20:38 Urine Blood Neg (Negative) 04/11/24 20:38 Urine Nitrate Negative (Negative) 04/11/24 20:38 Urine Bilirubin 1+ (Negative) H 04/11/24 20:38 Urine Urobilinogen 4 mg/dL (Negative) H 04/11/24 20:38 Ur Leukocyte Esterase Negative (Negative) 04/11/24 20:38 Discharge Plan Discharge Patient Disposition: Home Clinical Impression: Abdominal pain, Constipation Condition: Stable Prescriptions: New lactulose 10 gram/15 mL solution 10 g PO TID PRN (Reason: constipation) Qty: 237 0RF No Action fluoxetine 20 mg capsule 20 mg PO DAILY Qty: 30 0RF Rx Instructions: Take one capsule by mouth every morning olanzapine 10 mg tablet 10 mg PO DAILY Qty: 30 0RF Rx Instructions: Take one capsule by mouth daily at bedtime albuterol sulfate 90 mcg/actuation HFA aerosol inhaler 1 inh inhalation QID PRN (Reason: shortness of breath or wheezing) Qty: 8.5 2RF Airsupra 90-80 mcg/actuation HFA aerosol inhaler 2 inh inhalation 6XD PRN (Reason: shortness of breath) Qty: 10.7 11RF Discharge Orders: Discharge ED (Routine); Ordered 04/12/24 Ordered By: Marquez Blake Referrals: Rosio Fontanez NP [Primary Care Provider] - 1-3 days Patient Instructions: Constipation (ED), Abdominal Pain (ED), Opioid Safety, Pain Management Activity Restrictions/Additional Instructions: Lab work and imaging did not find an acute cause of abdominal pain this evening. You are rather constipated. Medication should help with this. Once bowel movements become soft, you can stop the medication or decrease its usage. Follow-up with your doctor this week. Return to the ER for vomiting liquids or medications despite treatment, fever greater than 100, worsening pain despite treatment, other concerning symptoms. Coding Level of Care Code ED Division Manager for Chris Wills
[2024-04-11] MEDS: dicyclomine 20 mg Tablet PO (21:44)
[2024-04-11] MEDS: ondansetron 2 mg/ML SDV 2 mL 4 MG IVP (21:44)
[2024-04-11] MEDS: sodium chloride 0.9% 1,000 ML 999 ML IV (21:44)
[2024-04-11 21:55] VITALS: BP 144/91; PULSE 72; RESP 20; O2SAT 99
[2024-04-11] MEDS: iohexol 350 mg/mL 500 mL Btl (per mL) IV (22:50)
[2024-04-11 23:06] VITALS: BP 151/88; PULSE 79; RESP 18; O2SAT 98
== END 2024-04-12 00:15 | disposition home or self-care (01) ==
PROVIDERS: Emergency Medicine; Emergency Provider Emergency Medicine; PCP Nurse Practitioner Family
DX: K59.00 Constipation, unspecified (principal); R10.9 Unspecified abdominal pain; Z79.899 Other long term (current) drug therapy; F17.210 Nicotine dependence, cigarettes, uncomplicated
CPT/HCPCS: 74022; 74177; 80053; 81003; 83605; 85025; 86140; 96361; 96374; 99285; J2405; J7030; Q9967

== ENCOUNTER 2024-04-29 06:27 | Outpatient (CLI) | payer OTHER, SELFPAY ==
[2024-04-10 09:32] VITALS: BP 128/80; BMI 20.8
--- NOTE | 2024-04-29 06:34 | US_ITS ---
WS: [id number] RIGHT UPPER QUADRANT ULTRASOUND HISTORY: ABNORMAL LIVER ENZIMES COMPARISON: 08/02/2020, CT 04/11/2024 Liver: 12.3 cm in length. Normal size liver and echogenicity. No bile duct dilatation or mass. Portal Vein: Normal hepatopetal flow with monophasic waveform. Gallbladder: Normally distended gallbladder with no stones or wall thickening. CBD: 0.3 cm Pancreas: Normal size and echogenicity. Right kidney: 9.1 cm in length. Normal size and echogenicity. No hydronephrosis or mass. Aorta and IVC: Unremarkable abdominal aorta and IVC. No ascites. US/US abdomen limited 10198 IMPRESSION: Normal right upper quadrant ultrasound.
== END 2024-04-29 06:28 | disposition home or self-care (01) ==
PROVIDERS: PCP Nurse Practitioner Family; Visit Provider Nurse Practitioner Family
DX: R94.5 Abnormal results of liver function studies (principal)
CPT/HCPCS: 76705

== ENCOUNTER → 2025-03-09 10:25 | Outpatient (BNVA) | payer OTHER, SELFPAY ==
[2024-04-10 09:32] VITALS: BP 128/80; BMI 20.8
== END ==
PROVIDERS: PCP Nurse Practitioner Family; Visit Provider Nurse Practitioner Family
DX: I10 Essential (primary) hypertension (principal); M25.512 Pain in left shoulder; Z90.710 Acquired absence of both cervix and uterus; E55.9 Vitamin D deficiency, unspecified; E53.8 Deficiency of other specified B group vitamins; E03.9 Hypothyroidism, unspecified; E04.9 Nontoxic goiter, unspecified; E78.00 Pure hypercholesterolemia, unspecified; F41.9 Anxiety disorder, unspecified; F31.81 Bipolar II disorder
CPT/HCPCS: 80053; 80061; 82306; 82607; 84443; 85025

== ENCOUNTER 2025-03-16 12:25 | Outpatient (CLI) | payer OTHER, SELFPAY ==
[2024-04-10 09:32] VITALS: BP 128/80; BMI 20.8
--- NOTE | 2025-03-16 12:45 | US_ITS ---
WS: [id number] ULTRASOUND SOFT TISSUES RIGHT wrist HISTORY: R22.31 - Localized swelling, mass and lump, right upper limb COMPARISON: None available. TECHNIQUE: 2-D and color Doppler imaging is submitted. Ultrasound performed along the RIGHT wrist in the area of the palpable abnormality. Palpable abnormality corresponds to a very superficial prominent vessel. The wall is slightly thick but there is no thrombus identified. Vessel is patent. No additional abnormality. US/US soft tissue/extremity 24864 IMPRESSION: Localized area of swelling along the RIGHT wrist corresponds to a superficial v essel.
== END 2025-03-16 12:26 | disposition home or self-care (01) ==
LOC: RAD 12:25
PROVIDERS: PCP Nurse Practitioner Family; Visit Provider Nurse Practitioner Family
DX: R22.31 Localized swelling, mass and lump, right upper limb (principal)
CPT/HCPCS: 76882

== ENCOUNTER 2025-03-27 21:38 | Emergency (ER) | payer OTHER, SELFPAY ==
[2024-04-10 09:32] VITALS: BP 128/80; BMI 20.8
--- OUTSIDE RECORDS SUMMARY | 2025-03-27 21:43 | XMS_ITS | Clinical Summary ---
Author Organization [facility] Address [address] [place] [address] Phone Care Team Providers Care Deck Builder Name Role Phone Fercho, Priyanka Gordon CHON Primary Care Provider [phone] Allergies Active Allergy Reactions Criticality Noted Date Comments Penicillins Shortness of Breath/Wheezing,Rash High 0 02/06/2014 Medications aspirin-acetami nophen-caffeine (EXCEDRIN EXTRA STRENGTH) 250-250-65 mg Tablet Take 2 Tabs by mouth every 4 hours as needed for Headaches. Active naproxen sodium (ALEVE) 220 mg Tablet Take 220 mg by mouth every 4 hours as needed for Pain, Moderate. Active diazepam (VALIUM) 10 mg tablet Take 10 mg by mouth every 12 hours as needed for Anxiety. Active OLANZapine (ZYPREXA) 15 mg tablet Take 15 mg by mouth daily at bedtime. Active FLUoxetine (PROZAC) 20 mg tablet Take 20 mg by mouth 2 times daily. Active jkmao-klppx-xym ymyx-pramoxine (NEOSPORIN PLUS) 3.5-500-10,000 jy-vqdj-ehkx/g Ointment Apply to affected area daily. 10/16/2015 Active oxyCODONE-aceta minophen (PERCOCET) 5-325 mg tablet Take 1 Tablet by mouth every 4 hours as needed for Pain, Moderate. Max Daily Amount: 6 Tablet 50 Tablet 0 10/20/2015 Active Active Problems Problem Noted Date Diagnosed Date Tobacco use 10/16/2015 Social History Tobacco Use Types Packs/Day Years Used Date Smoking Tobacco: Every Day Cigarettes 0.5 30 Alcohol Use Standard Drinks/Week Comments No 0 (1 standard drink = 0.6 oz pur e alcohol) Comments No Sex and Gender Information Value Date Recorded Sex Assigned at Not on file Legal Sex Female 3:08 PM CDT Gender Identity Not on file Sexual Orientation Not on file Last Filed Vital Signs Vital Sign Reading Time Taken Comments Blood Pressure 139/85 10/20/2015 11:47 AM PARTS COUNTER REPRESENTATIVE Pulse 79 10/20/2015 11:47 AM PARTS COUNTER REPRESENTATIVE Temperature 37 C (98.6 F) 10/20/2015 11:47 AM PARTS COUNTER REPRESENTATIVE Respiratory Rate 18 10/20/2015 11:47 AM PARTS COUNTER REPRESENTATIVE Oxygen Saturation 99% 10/20/2015 11:47 AM PARTS COUNTER REPRESENTATIVE Inhaled Oxygen Concentration - - Weight 52 kg (114 lb 10.2 oz) 10/20/2015 11:47 A M PARTS COUNTER REPRESENTATIVE Height 157.5 cm (5' 2 ) 10/20/2015 11:47 AM PARTS COUNTER REPRESENTATIVE Body Mass Index 20.97 10/20/2015 11:47 AM PARTS COUNTER REPRESENTATIVE Plan of Treatment Health Maintenance Due Date Last Done Comments DTAP/TDAP/TD VACCINES (1 - Tdap) 1989 HEPATITIS B VACCINES (1 of 3 - 19+ 3-dose series) 07/31 HPV/Cotest (21-29) 1991 CERVICAL CANCER SCREENING 2000 HPV/Cotest (30-65) 2000 PAP SMEAR 2000 BREAST CANCER SCREENING 2010 COLORECTAL SCREENING 2015 Colorectal Cancer Screening 2015 FIT-DNA Q 3 years 2015 FIT/FOBT Q 1 year 2015 Flex Sig/CT Colonography Q 5 years 2015 ZOSTER VACCINE (1 of 2) 2020 INFLUENZA VACCINE (#1) 2024 Medical Devices Implanted Type Area Imaging Specialist Device Identifier Shelf Expiration Date Model / Serial / Lot Pins Description:Pt states she levi s pins in her ankle. Insurance [address] [place] [id number] [place] Care Teams Deck Builder Relationship Specialty Start Date End Date Priyanka Brantley APN [address] [place] [id number] PCP - General NURSE PRACTITIONER 02/06/14
--- OUTSIDE RECORDS SUMMARY | 2025-03-27 21:43 | XMS_ITS | Clinical Summary ---
Author Organization [employer] Address [address] [facility] Attn: Epic Prelude ADT [place] [address] Care Team Providers Care Marketing Analytics Specialist Name Role Phone BrantleyPriyanka Heidi GIVENS Primary Care Provider [phone] Allergies Active Allergy Reactions Criticality Noted Date Comments Penicillins Shortness of Breath/Wheezing,Rash High 0 02/06/2014 Medications oxyCODONE-aceta minophen (PERCOCET) 5-325 mg tablet Take 1 Tablet by mouth every 4 hours as needed for Pain, Moderate. Max Daily Amount: 6 Tablet 50 Tablet 0 10/20/2015 Active OLANZapine (ZyPREXA) 15 mg tablet Take 15 mg by mouth daily at bedtime. 10/16/2015 Active diazePAM (VALIUM) 10 mg tablet Take 10 mg by mouth every 12 hours as needed for Anxiety. 10/16/2015 Active FLUoxetine (PROzac) 20 mg tablet Take 20 mg by mouth 2 times daily. 10/16/2015 Active axwez-syaoz-kwr ymyx-pramoxine (NEOSPORIN PLUS) 3.5-500-10,000 hl-impy-uiog/g Ointment Apply to affected area daily. 10/16/2015 Active Active Problems Problem Noted Date Diagnosed Date Tobacco use 10/16/2015 Social History Tobacco Use Types Packs/Day Years Used Date Smoking Tobacco: Every Day Cigarettes Alcohol Use Standard Drinks/Week Comments No 0 (1 standard drink = 0.6 oz pur e alcohol) Comments Unknown Sex and Gender Information Value Date Recorded Sex Assigned at Not on file Legal Sex Female 5:26 AM RESISTANCE BRAZER Gender Identity Not on file Sexual Orientation Not on file Last Filed Vital Signs Vital Sign Reading Time Taken Comments Blood Pressure 139/85 10/20/2015 11:47 AM RESISTANCE BRAZER Pulse 79 10/20/2015 11:47 AM RESISTANCE BRAZER Temperature 37 C (98.6 F) 10/20/2015 11:47 AM RESISTANCE BRAZER Respiratory Rate 18 10/20/2015 11:47 AM RESISTANCE BRAZER Oxygen Saturation - - Inhaled Oxygen Concentration - - Weight 52 kg (114 lb 10.2 oz) 10/20/2015 11:47 A M RESISTANCE BRAZER Height 157.5 cm (5' 2 ) 10/20/2015 11:47 AM RESISTANCE BRAZER Body Mass Index 20.97 10/20/2015 11:47 AM RESISTANCE BRAZER Plan of Treatment Health Maintenance Due Date [...] (#1) 2024 Medical Devices Implanted Type Area Edge Sander Device Identifier Shelf Expiration Date Model / Serial / Lot Pins Description:Pt states she levi s pins in her ankle. Care Teams Marketing Analytics Specialist Relationship Specialty Start Date End Date Priyanka Brantley APN [facility] [address] [address] PCP - General NURSE PRACTITIONER 02/06/14
[2025-03-27 21:45] VITALS: BP 190/97; PULSE 67; RESP 16; TEMP 36.7; O2SAT 99; BMI 19.9
--- NOTE | 2025-03-27 21:50 | XRR_ITS ---
PROCEDURE INFORMATION: Exam: XR Right Hip Exam date and time: 03/27/2025 10:09 PM Age: 54 years old Clinical indication: Right hip; Prior surgery; Surgery date: 6+ months; Surgery type: Appy. Hysterectomy; Persistent RT hip pain after a fall one week ago. ; Additional info: Hip pain post fall TECHNIQUE: Imaging protocol: Radiologic exam of the right hip. Views: 1 view hip with pelvis when performed. COMPARISON: CT abdomen pelvis w con* [id number] 04/11/2024 10:48 PM FINDINGS: Bones/joints: Mild degenerative change. No fracture seen. Soft tissues: Unremarkable. XR/XR hip RT 2-3V wo/w pel* [id number] IMPRESSION: No fracture seen. Consider CT or MRI for increased sensitivity.
[2025-03-27 22:31] VITALS: BP 201/107; PULSE 77; O2SAT 99
[2025-03-27] MEDS: ketorolac 30 mg/mL INJ IM (22:54)
[2025-03-27] MEDS: ondansetron 4 MG Tablet PO (22:54)
[2025-03-27] MEDS: HYDROmorphone 0.5 MG/0.5 ML INJ 1 MG IM (22:54)
--- NOTE | 2025-03-27 23:13 | W.ED.EXTPRO ---
HPI - Extremity Problem General: Chief complaint: Extremity Injury, Lower Stated complaint: fall. hip pain, foot turning out numbness Time Seen by Provider: 03/27/25 22:24 History of Present Illness: 54-year-old female complaining of right lateral and posterior hip pain. She states she fell a week ago, and pain is progressively worsened. She says it seemed to improve for a couple of days but she has been working on the hip the last day with increased pain. No fever. She has chronic back pain which is unchanged. She has some lateral thigh and leg paresthesias with the pain. She is able to bear weight, but it is painful. Related Data Previous Rx's ?Medication ?Instructions ?Recorded albuterol sulfate 90 mcg/actuation 1 inh inhalation QID PRN shortness 08/08/23 aerosol inhaler of breath or wheezing #8.5 grams albuterol 90 mcg-budesonide 80 2 inh inhalation 6XD PRN shortness 10/29/23 mcg/actuation HFA aerosol inhaler of breath #10.7 grams (Airsupra) olanzapine 10 mg tablet 10 mg PO DAILY #30 tabs 01/10/24 lactulose 10 gram/15 mL oral 10 g (15 mL) PO TID PRN 04/12/24 solution constipation #237 mL ketorolac 10 mg tablet 10 mg PO TID PRN pain #10 tabs 03/27/25 Allergies Allergy/AdvReac Type Severity Reaction Status Date / Time Penicillins Allergy ALGY-Anaphy Verified 03/09/25 09:16 laxis [facility] ED [facility]: Medical History Memory loss Headache Bipolar 2 disorder, major depressive episode SOHAIL (generalized anxiety disorder) Following information retrieved/edited from Behavior Assessment Report, completed on 12/17/23: Prachi reports that she has experienced the following symptoms during the past month: cry easily, sweating palms, fatigue, bad dreams, mind goes blank, difficulty concentrating, trouble making decisions, trouble remembering, thoughts hard to dismiss, trouble sleeping, easily annoyed/irritable, loss of sexual desire, nervous feeling, excessive worries/fears, excessive fear of crowds, no interest in things, feeling inferior, change in personality, work difficulties, thoughts of harming others, problems chewing/swallowing, nausea/vomiting, diarrhea/constipation, multiple medical problems, eating disorder, weight gain/loss. Prachi reported on the Mejias Psychological Distress Scale that during the past four weeks, all of the time, she felt tired out for no good reason, nervous, so restless she could not sit still, depressed, that everything is an effort, and worthless. She reported that most of the time she felt so nervous that nothing could calm her down, hopeless, restless/fidgety, and so sad that nothing could cheer her up. Prachi scored a 19 on the SOHAIL-7. She reports that nearly every day, for the past two weeks, she has felt nervous/anxious/on edge, has not been able to stop/control worry, has worried too much about different things, has had trouble relaxing, has been so restless that it is hard to sit still, has been easily annoyed/irritable. Prachi reports several days of feeling afraid that something awful might happen. No pertinent family history Surgical History H/O: hysterectomy S/P appendectomy Social History Smoking and tobacco/nicotine status: current every day tobacco/nicotine user (Vape) e-cigarettes E-Cigarette Details: vaporizer device Second hand smoke exposure: No Alcohol intake: never Substance/Drug Use: never Adopted: No Caregiver/support person: No Lives independently: Yes Household members: none Housing: House Marital status: / Number of children: 4 Highest education level completed: Some College, No Degree service: No Current occupational status: employed Physical Exam Const: GENERAL APPEARANCE: cooperative and anxious; not ill appearing NUTRITIONAL APPEARANCE: thin HENMT: COMMON NORMALS: normocephalic, atraumatic and Normal external nose present HEAD & SCALP: normocephalic and atraumatic NOSE: Normal external nose present Eye: COMMON NORMALS: Equal, round and reactive pupils present and EOMs intact bilaterally PUPIL: Yes Equal, round and reactive pupils present Chest: CHEST: Yes Symmetrical chest wall rise Resp: COMMON NORMALS: normal respiratory effort, No use of accessory muscles and clear to auscultation bilaterally AUSCULTATION: clear to auscultation bilaterally Cardio: COMMON NORMALS: regular rate and regular rhythm RATE: regular rate RHYTHM: regular rhythm Back/Pelvis: OTHER: Patient has mild lower lumbar midline tenderness, and tenderness to the right side. There is significant tenderness to the lateral border of the sacrum, trochanteric region of the hip. There is no anterior tenderness. Sensation is grossly intact distally to touch and proprioception. Strength is intact distally with dorsal and plantarflexion. Course Vital Signs: Vital signs: Vital Signs Temperature 98.1 F 03/27/25 21:45 Pulse Rate 71 03/28/25 00:17 Respiratory Rate 16 03/27/25 21:45 Blood Pressure 160/105 03/28/25 00:17 Pulse Oximetry 97 03/28/25 00:17 Oxygen Delivery Me thod Room Air 03/27/25 21:45 MDM - Extremity (Nontraumatic) Medical Decision Making Hip x-ray is negative. Pain is improved after medication. Will allow home. Lab Data Radiology Impressions Hip/Pelvis X-Ray 03/27/25 21:50 IMPRESSION: No fracture seen. Consider CT or MRI for increased sensitivity. All radiology interpretation(s) finalized by discharge Discharge Plan Discharge Patient Disposition: Home Clinical Impression: Contusion of hip, right Condition: Stable Prescriptions: New ketorolac 10 mg tablet 10 mg PO TID PRN (Reason: pain) Qty: 10 0RF No Action olanzapine 10 mg tablet 10 mg PO DAILY Qty: 30 0RF Rx Instructions: Take one capsule by mouth daily at bedtime albuterol sulfate 90 mcg/actuation HFA aerosol inhaler 1 inh inhalation QID PRN (Reason: shortness of breath or wheezing) Qty: 8.5 2RF Airsupra 90-80 mcg/actuation HFA aerosol inhaler 2 inh inhalation 6XD PRN (Reason: shortness of breath) Qty: 10.7 11RF lactulose 10 gram/15 mL solution 10 g PO TID PRN (Reason: constipation) Qty: 237 0RF Discharge Orders: Discharge ED (Routine); Ordered 03/27/25 Ordered By: Marquez Blake Referrals: Audra De La Torre FNP-C [Primary Care Provider, Family Practice] - 1-3 days Patient Instructions: Hip Contusion (ED), Opioid Safety, Pain Management, Patient Portal & Ricardo Instructions Activity Restrictions/Additional Instructions: Return for fever, redness, worsening swelling, worsening pain, significant weakness, other concerning symptoms. Call your doctor Saturday morning for follow-up appointment. Medication as directed. Print Language: Sinhala Coding Level of Care Code ED Treatment Plant Mechanic for Chris Wills
[2025-03-27] MEDS: oxyCODONE-APAP 5-325 mg Tablet 1 TAB PO (23:59)
[2025-03-28 00:17] VITALS: BP 160/105; PULSE 71; O2SAT 97
== END 2025-03-28 00:06 | disposition home or self-care (01) ==
PROVIDERS: Emergency Provider Emergency Medicine; PCP Nurse Practitioner Family
DX: S70.01XA Contusion of right hip, initial encounter (principal); F17.290 Nicotine dependence, other tobacco product, uncomplicated; W19.XXXA Unspecified fall, initial encounter
CPT/HCPCS: 73502; 96372; 99284; J1171; J1885; J9999; Q0162

== ENCOUNTER → 2025-03-29 13:24 | Outpatient (BNVA) | payer OTHER, SELFPAY ==
[2024-04-10 09:32] VITALS: BP 128/80; BMI 20.8
== END ==
PROVIDERS: PCP Nurse Practitioner Family; Visit Provider Nurse Practitioner Family
DX: M25.512 Pain in left shoulder (principal)
CPT/HCPCS: 73030

== ENCOUNTER 2025-03-31 23:43 | Emergency (ER) | payer OTHER, SELFPAY ==
[2024-04-10 09:32] VITALS: BP 128/80; BMI 20.8
[2025-03-31 23:48] VITALS: BP 206/104; PULSE 82; RESP 16; TEMP 36.4; O2SAT 100; BMI 19.9
--- OUTSIDE RECORDS SUMMARY | 2025-03-31 23:50 | XMS_ITS | Clinical Summary ---
Author Organization [facility] Address [address] [facility] [address] [place] [address] Phone Care Team Providers Care Channel Layer Name Role Phone Fercho, Priyanka Gordon CHON Primary Care Provider [phone] Allergies Active Allergy Reactions Criticality Noted Date [...] mg by mouth 2 times daily. Active rbrdl-tzunh-ucz ymyx-pramoxine (NEOSPORIN PLUS) 3.5-500-10,000 lk-yzel-abph/g Ointment Apply to affected area daily. 10/16/2015 [...] Comments Blood Pressure 139/85 10/20/2015 11:47 AM AQUATICS COORDINATOR Pulse 79 10/20/2015 11:47 AM AQUATICS COORDINATOR Temperature 37 C (98.6 F) 10/20/2015 11:47 AM AQUATICS COORDINATOR Respiratory Rate 18 10/20/2015 11:47 AM AQUATICS COORDINATOR Oxygen Saturation 99% 10/20/2015 11:47 AM AQUATICS COORDINATOR Inhaled Oxygen Concentration - - Weight 52 kg (114 lb 10.2 oz) 10/20/2015 11:47 A M AQUATICS COORDINATOR Height 157.5 cm (5' 2 ) 10/20/2015 11:47 AM AQUATICS COORDINATOR Body Mass Index 20.97 10/20/2015 11:47 AM AQUATICS COORDINATOR Plan of Treatment Health Maintenance Due Date [...] (#1) 2024 Medical Devices Implanted Type Area Sifting Operator Device Identifier Shelf Expiration Date Model / Serial / Lot Pins Description:Pt states she levi s pins in her ankle. Insurance [address] [place] [id number] [place] Care Teams Channel Layer Relationship Specialty Start Date End Date Priyanka Brantley APN [address] [place] [id number] PCP - General NURSE PRACTITIONER 02/06/14
--- OUTSIDE RECORDS SUMMARY | 2025-03-31 23:50 | XMS_ITS | Clinical Summary ---
Author Organization [employer] Address [address] [facility] Attn: Epic Prelude ADT [place] [address] Care Team Providers Care Low Emission Automobile Designer Name Role Phone BrantleyPiryanka Heidi GIVENS Primary Care Provider [phone] Allergies Active Allergy Reactions Criticality Noted Date [...] by mouth 2 times daily. 10/16/2015 Active sqrsa-jtfxu-jvn ymyx-pramoxine (NEOSPORIN PLUS) 3.5-500-10,000 be-zaua-ecex/g Ointment Apply to affected area daily. 10/16/2015 [...] on file Legal Sex Female 5:26 AM ELECTRONIC DESIGN ENGINEER Gender Identity Not on file Sexual Orientation Not on file Last Filed Vital Signs Vital Sign Reading Time Taken Comments Blood Pressure 139/85 10/20/2015 11:47 AM ELECTRONIC DESIGN ENGINEER Pulse 79 10/20/2015 11:47 AM ELECTRONIC DESIGN ENGINEER Temperature 37 C (98.6 F) 10/20/2015 11:47 AM ELECTRONIC DESIGN ENGINEER Respiratory Rate 18 10/20/2015 11:47 AM ELECTRONIC DESIGN ENGINEER Oxygen Saturation - - Inhaled Oxygen Concentration - - Weight 52 kg (114 lb 10.2 oz) 10/20/2015 11:47 A M ELECTRONIC DESIGN ENGINEER Height 157.5 cm (5' 2 ) 10/20/2015 11:47 AM ELECTRONIC DESIGN ENGINEER Body Mass Index 20.97 10/20/2015 11:47 AM ELECTRONIC DESIGN ENGINEER Plan of Treatment Health Maintenance Due Date [...] (1 of 2) 2020 INFLUENZA VACCINE (#1) 2025 Medical Devices Implanted Type Area Ems Educator Device Identifier Shelf Expiration Date Model / Serial / Lot Pins Description:Pt states she levi s pins in her ankle. Care Teams Low Emission Automobile Designer Relationship Specialty Start Date End Date Priyanka Brantley APN [facility] [address] [address] PCP - General NURSE PRACTITIONER 02/06/14
[2025-04-01 00:19] LABS: Glucose Urine UA Negative (Normal); Nitrate Urine Negative (Negative); Specific Gravity, Urine 1.028 (1.005-1.030)
[2025-04-01 00:25] LABS: Hematocrit 36.7 % (36-47); Hemoglobin 12.20 g/dL (11.27-16.99); Mean Corpuscular HGB Conc 33.2 g/dL (30-55); Mean Corpuscular Hemoglobin 33.5 pg (27-33); Mean Corpuscular Volume 100.8 fl (85-98); Nucleated Red Blood Cells % 0 %; Platelet Count 284 10^3/cmm (157-399); Red Blood Count 3.64 10^6/uL (3.85-5.65); White Blood Count 11.04 10^3/uL (3.29-11.43)
[2025-04-01 00:31] VITALS: BP 174/96; PULSE 68; O2SAT 99
[2025-04-01 00:38] LABS: Alanine Aminotransferase 7 U/L (0-33); Albumin Level 4.6 g/dL (3.5-5.2); Alkaline Phosphatase 110 U/L (35-105); Anion Gap 16.9 (5-19); Aspartate Amino Transferase 20 U/L (0-32); Blood Urea Nitrogen 18 mg/dL (6-20); Calcium 9.2 mg/dL (8.5-10.5); Carbon Dioxide 24 mmol/L (22-29); Chloride 105 mmol/L (98-107); Creatinine Clr Calc Pharmacy 72.2831; Globulin 2.8 g/dL (1.3-4.6); Glucose 99 mg/dL (65-115); Lipase 35 U/L (13-60); Osmolality Calculated 296 mOsm/kg (285-295); Potassium 3.9 mmol/L (3.5-5.1); Sodium 142 mmol/L (136-145); Total Protein 7.4 g/dL (6.6-8.7)
--- NOTE | 2025-04-01 01:07 | CTR_ITS ---
PROCEDURE INFORMATION: Exam: CT Abdomen And Pelvis With Contrast Exam date and time: 04/01/2025 1:57 AM Age: 54 years old Clinical indication: Abdominal pain; Periumbilical; Prior surgery; Surgery date: 6+ months; Surgery type: Hysterectomy, appendectomy; Po and iv contrast; Additional info: Suspected umbilical hernia. ? Incarcerated TECHNIQUE: Imaging protocol: Computed tomography of the abdomen and pelvis with contrast. Radiation optimization: All CT scans at this facility use at least one of these dose optimization techniques: automated exposure control; mA and/or kV adjustment per patient size (includes targeted exams where dose is matched to clinical indication); or iterative reconstruction. Contrast material: OMNI 350; Contrast volume: 100 ml; Contrast route: INTRAVENOUS (IV); COMPARISON: CT abdomen pelvis w con* [id number] 04/11/2024 10:48 PM RADIATION DOSE METRICS: Total DLP (mGy-cm): 274.6 FINDINGS: Liver: Liver normal in size and contour. No focal lesion. Gallbladder and biliary ducts: Normal. No calcified stones. No ductal dilation. Pancreas: Normal. No ductal dilation. Spleen: Normal. No splenomegaly. Adrenal glands: Normal. No mass. Kidneys and ureters: Delayed excretion of contrast into the right renal pelvis and right ureter. Stomach and bowel: Small bowel normal in caliber. Oral contrast extending to the level of the right lower quadrant small bowel. Trace contrast within the terminal ileum and cecum. Scattered air-fluid levels throughout the small bowel. Moderate distal colonic diverticulosis. Appendix: Appendix surgically absent. Intraperitoneal space: Unremarkable. No free air. No significant fluid collection. Vasculature: Moderate atherosclerotic calcification of the aorta and major branch vessels without aneurysm. Lymph nodes: Unremarkable. No enlarged lymph nodes. Urinary bladder: Unremarkable as visualized. Reproductive: Unremarkable as visualized. Bones/joints: Mild thoracolumbar spondylosis. No acute osseous abnormality. Soft tissues: Paraumbilical hernia measuring 12 x 10 x 14 mm, containing a small portion of inflamed mesentery, with mild inflammation of the surrounding subcutaneous fat. CT/CT abdomen pelvis w con* [id number] IMPRESSION: 1. Paraumbilical hernia measuring 12 x 10 x 14 mm, containing a small portion of inflamed mesentery, with mild inflammation of the surrounding subcutaneous fat. No contained bowel. 2. Scattered air-fluid levels throughout the small bowel with dilation of the left upper quadrant small bowel to 2.7 cm. Extension of oral contrast through multiple loops of the right lower quadrant, with trace oral contrast in the terminal ileum and cecum. Diffuse ileus favored over partial small bowel obstruction. 3. Delayed excretion of contrast into the right renal pelvis and right ureter, of unclear etiology. No identified urolithiasis or other obstructing ureteral lesion. No right renal findings to suggest pyelonephritis.
[2025-04-01 01:20] VITALS: RESP 16
[2025-04-01] MEDS: morphine 4 mg/mL SDV 1 mL 6 MG IVP (01:20)
[2025-04-01] MEDS: ondansetron 2 mg/ML SDV 2 mL 4 MG IVP (01:20)
[2025-04-01 01:28] LABS: Lactic Sepsis W/Reflex 0.5 mmol/L (0.5-2.2)
[2025-04-01] MEDS: iohexol 350 mg/mL 500 mL Btl (per mL) IV (01:59)
[2025-04-01] MEDS: iohexol 350 mg/mL 500 mL Btl (per mL) PO (01:59)
[2025-04-01 03:35] VITALS: RESP 18
[2025-04-01] MEDS: morphine 4 mg/mL SDV 1 mL IVP (03:35)
--- NOTE | 2025-04-01 04:16 | W.ED.ABDPA2 ---
HPI - Abdominal Pain General: Chief Complaint: Abdominal Pain Stated Complaint: hard knot in stomach painful Time Seen by Provider: 03/31/25 23:54 History of Present Illness: Patient is a 54-year-old female seen for acute onset periumbilical pain associated with nausea. Pain is currently 8 of 10, sharp, burning, worse with motion and better with rest. She has never had this kind of pain before. She has had exploratory abdominal surgery in the past as well as total hysterectomy and appendectomy. She denies vomiting, fever, dysuria, frequency, diarrhea, constipation. She continues to have bowel movements. She has no other acute complaints. Related Data Previous Rx's ?Medication ?Instructions ?Recorded albuterol sulfate 90 mcg/actuation 1 inh inhalation QID PRN shortness 08/08/23 aerosol inhaler of breath or wheezing #8.5 grams albuterol 90 mcg-budesonide 80 2 inh inhalation 6XD PRN shortness 10/29/23 mcg/actuation HFA aerosol inhaler of breath #10.7 grams (Airsupra) olanzapine 10 mg tablet 10 mg PO DAILY #30 tabs 01/10/24 lactulose 10 gram/15 mL oral 10 g (15 mL) PO TID PRN 04/12/24 solution constipation #237 mL ketorolac 10 mg tablet 10 mg PO TID PRN pain #10 tabs 03/27/25 hydrocodone 10 mg-acetaminophen 1 tab PO TID PRN pain #20 tabs 04/01/25 325 mg tablet ondansetron 4 mg disintegrating 4 mg PO Q8H PRN nausea and 04/01/25 tablet vomiting 7 days #30 tabs Allergies Allergy/AdvReac Type Severity Reaction Status Date / Time Penicillins Allergy ALGY-Anaphy Verified 03/09/25 09:16 laxis [facility] ED [facility]: Medical History Memory loss Headache Bipolar 2 disorder, major depressive episode SOHAIL (generalized anxiety disorder) Following information retrieved/edited from Behavior Assessment Report, completed on 12/17/23: Prachi reports that she has experienced the following symptoms during the past month: cry easily, sweating palms, fatigue, bad dreams, mind goes blank, difficulty concentrating, trouble making decisions, trouble remembering, thoughts hard to dismiss, trouble sleeping, easily annoyed/irritable, loss of sexual desire, nervous feeling, excessive worries/fears, excessive fear of crowds, no interest in things, feeling inferior, change in personality, work difficulties, thoughts of harming others, problems chewing/swallowing, nausea/vomiting, diarrhea/constipation, multiple medical problems, eating disorder, weight gain/loss. Prachi reported on the Mejias Psychological Distress Scale that during the past four weeks, all of the time, she felt tired out for no good reason, nervous, so restless she could not sit still, depressed, that everything is an effort, and worthless. She reported that most of the time she felt so nervous that nothing could calm her down, hopeless, restless/fidgety, and so sad that nothing could cheer her up. Prachi scored a 19 on the SOHAIL-7. She reports that nearly every day, for the past two weeks, she has felt nervous/anxious/on edge, has not been able to stop/control worry, has worried too much about different things, has had trouble relaxing, has been so restless that it is hard to sit still, has been easily annoyed/irritable. Prachi reports several days of feeling afraid that something awful might happen. No pertinent family history Surgical History H/O: hysterectomy S/P appendectomy Social History Smoking and tobacco/nicotine status: current every day tobacco/nicotine user (Vape) e-cigarettes E-Cigarette Details: vaporizer device Second hand smoke exposure: No Alcohol intake: never Substance/Drug Use: never Adopted: No Caregiver/support person: No Lives independently: Yes Household members: none Housing: House Marital status: / Number of children: 4 Highest education level completed: Some College, No Degree service: No Current occupational status: employed Physical Exam Const: COMMON NORMALS: no acute distress, patient oriented x3 and alert HENMT: COMMON NORMALS: normocephalic and atraumatic HEAD & SCALP: normocephalic and atraumatic Eye: COMMON NORMALS: Equal, round and reactive pupils present, EOMs intact bilaterally and no scleral icterus PUPIL: Yes Equal, round and reactive pupils present Resp: COMMON NORMALS: normal respiratory effort and No retractions Cardio: COMMON NORMALS: regular rate, regular rhythm and No murmurs present (Cardio) RATE: regular rate RHYTHM: regular rhythm GI: OTHER: Abdomen is soft and nonperitoneal. There is a small midline protrusion that is tender to the touch just cephalad to the umbilicus. This protrusion is not easily reducible. Neuro: COMMON NORMALS: patient oriented x3 SENSORIUM/ORIENTATION: Yes alert Skin: COMMON NORMALS: no rashes or lesions noted GENERAL SKIN EXAM: no rashes or lesions noted Course Vital Signs: Vital signs: Vital Signs Temperature 97.6 F 03/31/25 23:48 Pulse Rate 68 04/01/25 00:31 Respiratory Rate 18 04/01/25 03:35 Blood Pressure 174/96 04/01/25 00:31 Pulse Oximetry 99 04/01/25 00:31 Oxygen Delivery Me thod Room Air 03/31/25 23:48 MDM - Abdominal Pain Medical Decision Making Pain was well-controlled with morphine. Labs are unremarkable. Lactic acid is not elevated. CT scan shows a fat-containing hernia in the midline abdomen. We discussed that typically these will self resolve with time and are not typically treated with surgery. She shows good understanding and will be discharged in stable condition with follow-up to general surgery and primary care. She knows that she is always welcome back in the emergency department if needed before the Lab Data 04/01/25 00:18 04/01/25 00:18 Labs/Radiology: Radiology Impressions Abdomen/Pelvis CT 04/01/25 01:07 IMPRESSION: 1. Paraumbilical hernia measuring 12 x 10 x 14 mm, containing a small portion of inflamed mesentery, with mild inflammation of the surrounding subcutaneous fat. No contained bowel. 2. Scattered air-fluid levels throughout the small bowel with dilation of the left upper quadrant small bowel to 2.7 cm. Extension of oral contrast through multiple loops of the right lower quadrant, with trace oral contrast in the terminal ileum and cecum. Diffuse ileus favored over partial small bowel obstruction. 3. Delayed excretion of contrast into the right renal pelvis and right ureter, of unclear etiology. No identified urolithiasis or other obstructing ureteral lesion. No right renal findings to suggest pyelonephritis. Laboratory Results WBC 11.04 10^3/uL (3.29-11.43) 04/01/25 00:18 RBC 3.64 10^6/uL (3.85-5.65) L 04/01/25 00:18 Hgb 12.20 g/dL (11.27-16.99) 04/01/25 00:18 Hct 36.7 % (36-47) 04/01/25 00:18 MCV 100.8 fl (85-98) H 04/01/25 00:18 MCH 33.5 pg (27-33) H 04/01/25 00:18 MCHC 33.2 g/dL (30-55) 04/01/25 00:18 RDW 12.2 % (12.1-15.1) 04/01/25 00:18 Plt Count 284 10^3/cmm (157-399) 04/01/25 00:18 MPV 9.4 fL (7.4-10.4) 04/01/25 00:18 Neut % (Auto) 62.3 % 04/01/25 00:18 Lymph % (Auto) 27.0 % 04/01/25 00:18 [place] % (Auto) 7.5 % 04/01/25 00:18 Eos % (Auto) 2.3 % 04/01/25 00:18 Baso % (Auto) 0.5 % 04/01/25 00:18 Neut # (Auto) 6.89 10^3/uL (1.8-7.7) 04/01/25 00:18 Lymph # (Auto) 3.0 10^3/uL (0.8-4.8) 04/01/25 00:18 [place] # (Auto) 0.8 10^3/uL (0.2-0.9) 04/01/25 00:18 Eos # (Auto) 0.3 10^3/uL (0.0-0.8) 04/01/25 00:18 Baso # (Auto) 0.1 10^3/uL (0.0-0.1) 04/01/25 00:18 Nucleated RBC % (auto) 0 % 04/01/25 00:18 Nucleated RBCs # 0.0 /100WBC 04/01/25 00:18 Sodium 142 mmol/L (136-145) 04/01/25 00:18 Potassium 3.9 mmol/L (3.5-5.1) 04/01/25 00:18 Chloride 105 mmol/L (98-107) 04/01/25 00:18 Carbon Dioxide 24 mmol/L (22-29) 04/01/25 00:18 Anion Gap 16.9 (5-19) 04/01/25 00:18 BUN 18 mg/dL (6-20) 04/01/25 00:18 Creatinine 0.7 mg/dL (0.5-0.9) 04/01/25 00:18 GFR Calculation 87.2 mL/min (90-130) L 04/01/25 00:18 Glucose 99 mg/dL (65-115) 04/01/25 00:18 Calculated Osmolality 296 mOsm/kg (285-295) H 04/01/25 00:18 Lactic Acid 0.5 mmol/L (0.5-2.2) 04/01/25 00:18 Calcium 9.2 mg/dL (8.5-10.5) 04/01/25 00:18 Total Bilirubin 0.2 mg/dL (0.15-1.2) 04/01/25 00:18 AST 20 U/L (0-32) 04/01/25 00:18 ALT 7 U/L (0-33) 04/01/25 00:18 Alkaline Phosphatase 110 U/L (35-105) H 04/01/25 00:18 Total Protein 7.4 g/dL (6.6-8.7) 04/01/25 00:18 Albumin 4.6 g/dL (3.5-5.2) 04/01/25 00:18 Globulin 2.8 g/dL (1.3-4.6) 04/01/25 00:18 Lipase 35 U/L (13-60) 04/01/25 00:18 Urine Color Yellow (Yellow) 04/01/25 00:12 Urine Appearance Clear (CLEAR) 04/01/25 00:12 Urine pH 6.0 (5-7) 04/01/25 00:12 Ur Specific Elizabeth 1.028 (1.005-1.030) 04/01/25 00:12 Urine Protein Trace (Negative) A 04/01/25 00:12 Urine Glucose (UA) Negative (Normal) 04/01/25 00:12 Urine Ketones Trace (Negative) 04/01/25 00:12 Urine Blood Negative (Negative) 04/01/25 00:12 Urine Nitrate Negative (Negative) 04/01/25 00:12 Urine Bilirubin Negative (Negative) 04/01/25 00:12 Urine Urobilinogen 1.0 mg/dL (Negative) 04/01/25 00:12 Ur Leukocyte Esterase Negative (Negative) 04/01/25 00:12 Urine RBC 3-5 /hpf (0-2) 04/01/25 00:12 Urine WBC 0-5 /hpf (0-5) 04/01/25 00:12 Ur Squamous Epith Cells 0-5 /hpf (0-5) 04/01/25 00:12 Amorphous Sediment Not Reportable 04/01/25 00:12 Urine Bacteria None seen /hpf (NONE) 04/01/25 00:12 Hyaline Casts 0.40 /lpf 04/01/25 00:12 All radiology interpretation(s) finalized by discharge Discharge Plan Discharge Patient Disposition: Home Clinical Impression: Fatty hernia of linea alba Condition: Stable Prescriptions: New hydrocodone-acetaminophen 10-325 mg tablet 1 tab PO TID PRN (Reason: pain) Qty: 20 0RF ondansetron 4 mg tablet,disintegrating 4 mg PO Q8H PRN (Reason: nausea and vomiting) 7 Days Qty: 30 0RF No Action olanzapine 10 mg tablet 10 mg PO DAILY Qty: 30 0RF Rx Instructions: Take one capsule by mouth daily at bedtime albuterol sulfate 90 mcg/actuation HFA aerosol inhaler 1 inh inhalation QID PRN (Reason: shortness of breath or wheezing) Qty: 8.5 2RF Airsupra 90-80 mcg/actuation HFA aerosol inhaler 2 inh inhalation 6XD PRN (Reason: shortness of breath) Qty: 10.7 11RF lactulose 10 gram/15 mL solution 10 g PO TID PRN (Reason: constipation) Qty: 237 0RF ketorolac 10 mg tablet 10 mg PO TID PRN (Reason: pain) Qty: 10 0RF Discharge Orders: Discharge ED (Routine); Ordered 04/01/25 Ordered By: Kalin Villarreal Referrals: Audra De La Torre, GEOLOGY ASSOCIATE-C [Primary Care Provider, Family Practice] Discharge Diet: Advance as tolerated Discharge Activity: Increase activity as tolerated Patient Instructions: Abdominal Hernia, Opioid Safety, Pain Management, Patient Portal & Ricardo Instructions Activity Restrictions/Additional Instructions: as we discussed, most hernias involve portions of the gastrointestinal tract bulging through the abdominal wall. Yours, however, only contains fat. Typically, this does not require surgery and will resolve with time. Please take the pain medication and nausea medication as needed. If symptoms get worse, you are always welcome back in the emergency department for reevaluation. At this time, there is no evidence of strangulated bowels or any other emergency. 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
--- NOTE | 2025-04-01 07:35 | DCPLANNER ---
messaged gen surg for er f/u
== END 2025-04-01 04:05 | disposition home or self-care (01) ==
PROVIDERS: Emergency Provider Student in an Organized Health Care Education/Training Program; PCP Nurse Practitioner Family
DX: K43.9 Ventral hernia without obstruction or gangrene (principal); F17.290 Nicotine dependence, other tobacco product, uncomplicated
CPT/HCPCS: 74177; 80053; 81001; 83605; 83690; 85025; 96361; 96374; 96375; 96376; 99285; J2270; J2405; J7030

== ENCOUNTER 2025-04-21 13:19 | Day surgery (SDC) | payer OTHER, SELFPAY ==
[2025-04-13 11:01] VITALS: BP 128/80; BMI 20.8
[2025-04-21] VITALS (11 sets, daily range): BP systolic 143–195; BP diastolic 83–103; PULSE 63–75; RESP 16–20; TEMP 36.1–36.9; O2SAT 96–100; BMI 19.5
--- NOTE | 2025-04-21 13:53 | P.ANESASSM_ITS ---
Pre-Anesthetic Assessment Height/Weight: Height 1.57 m Weight 48.534 kg Temp Pulse Resp BP Pulse Ox O2 Del Method 98.5 F 71 18 195/103 97 Room Air 04/21/25 13:37 04/21/25 13:37 04/21/25 13:37 04/21/25 13:37 04/21/25 13:37 04/21/25 13:40 Operation Date: 04/21/25 14:40 Proposed Procedures p Ventral Hernia Repair (Open) w/ Mesh [id number], K42.9(Not Applicable) - Johan Vallejo MD Familial anesthetic complications: None Was Beta Elina taken within 24 hours: N/A Was Clonidine taken within 24 hours: N/A Last intake: Intake Last Liquid Date 04/20/25 Last Liquid Time 23:30 Last Solid Date 04/20/25 Last Solid Time 20:00 Social Tobacco and No alcohol Exam alert, oriented x 3, clear to auscultation bilaterally and regular rate & rhythm Airway Mallampati: Class I Dentition: other (very poor dentition, extensive decay) Pulmonary Chronic Obstructive Pulmonary Disease CV/HEM Arrythmia GI Gastroesophageal Reflux Disease Metabolic Thyroid Disease Anesthetic Plan ASA status: 3 Anesthesia: General Risk of > 500 ml blood loss (7ml/kg in children): No Medications/Allergies Home Medications ?Medication ?Instructions ?Recorded ?Confirmed ?Last Taken ?Type albuterol sulfate 90 mcg/actuation 1 inh inhalation QI D PRN shortness 08/08/23 04/20/25 Unknown Rx aerosol inhaler of breath or wheezing #8.5 g romero albuterol 90 mcg-budesonide 80 2 inh inhalation 6XD MT N shortness 10/29/23 04/20/25 04/19/25 Rx mcg/actuation HFA aerosol inhaler of breath #10.7 gram s (Airsupra) ketorolac 10 mg tablet 10 mg PO TID PRN pain #10 ta bs 03/27/25 04/20/25 Unknown Rx hydrocodone 10 mg-acetaminophen 1 tab PO TID PRN pain #20 tabs 04/01/25 04/21/25 04/21/25 Rx 325 mg tablet omeprazole 40 mg capsule,delayed 40 mg PO DAILY #30 ca ps 04/15/25 04/20/25 Unknown Rx release ondansetron 4 mg disintegrating 4 mg PO PRN 04/20/25 0 04/20/25 04/20/25 History tablet Allergies Allergy/AdvReac Type Severity Reaction Status Date / Time Penicillins Allergy ALGY-Anaphy Verified 04/21/25 13:33 laxis [facility] Anesthesia Medical History Memory loss Headache Bipolar 2 disorder, major depressive episode SOHAIL (generalized anxiety disorder) No pertinent family history Surgical History H/O: hysterectomy S/P appendectomy Social History Smoking and tobacco/nicotine status: current every day tobacco/nicotine user (Vape) e-cigarettes E-Cigarette Details: vaporizer device Second hand smoke exposure: No Alcohol intake: never Substance/Drug Use: never Adopted: No Caregiver/support person: No Lives independently: Yes Household members: none Housing: House Marital status: / Number of children: 4 Highest education level completed: Some College, No Degree service: No Current occupational status: employed Data Anesthesia Cardiac Studies: Echocardiogram 09/17/22 Cardiac Event Monitor 07/31/22
--- NOTE | 2025-04-21 13:55 | W.PM.OPSUD ---
Surgery/Procedure H&P Update DATE OF PROCEDURE: April 21, 2025 DATE H&P PERFORMED: 04/08/25 H&P UPDATE INFORMATION: I have reviewed H&P completed within last 30 days, I have examined patient prior to procedure and No changes to prior documentation CHANGES TO PREVIOUS DOCUMENTATION: Hernia site marked in preop. PLANNED PROCEDURE: Operation Date: 04/21/25 14:40 Proposed Procedures p Ventral Hernia Repair (Open) w/ Mesh [id number], K42.9(Not Applicable) - Johan Vallejo MD
--- NOTE | 2025-04-21 13:56 | W.PM.OPSUD ---
Surgery/Procedure H&P Update DATE OF PROCEDURE: April 21, 2025 DATE H&P PERFORMED: 04/08/25 CHANGES TO PREVIOUS DOCUMENTATION: Marked hernia site in preop. Discussed risks and benefits and patient agreed to proceed with open ventral hernia repair with mesh. PLANNED PROCEDURE: Operation Date: 04/21/25 14:40 Proposed Procedures p Ventral Hernia Repair (Open) w/ Mesh [id number], K42.9(Not Applicable) - Johan Vallejo MD
--- NOTE | 2025-04-21 14:39 | P.OP_ITS ---
Operative Report Date of procedure: April 21, 2025 Pre-op diagnosis: Paraumbilical hernia repair with mesh Post-op diagnosis: same Post-op findings: Paraumbilical hernia repair using 4.3cm Ventralex ST mesh. Hernia sac and contents reduced into abdomen. 2cm hernia defect repaired using mesh. Procedure done: Ventral hernia repair with mesh Implants: 4.3cm Ventralex ST mesh Specimens removed/disposition: NA Pathology: none sent Surgeon: Johan Vallejo MD Windows Support Engineer: FARHAT Anesthesia: General Estimated blood loss (mL): 5 Complications: NA Findings: Paraumbilical hernia repair using 4.3cm Ventralex ST mesh. Hernia sac and contents reduced into abdomen. 2cm hernia defect repaired using mesh. Condition: stable Disposition: same day Brief History: 54-year-old female who presented with a periumbilical hernia. Discussed risk and benefits and patient agreed to proceed with open ventral hernia repair with mesh. Marked site of hernia defect with patients input in the preop area. Procedure: Consent was obtained in the preop area. Patient was transferred to the OR and laid supine. SCDs were on and working. Preoperative antibiotics were administered. General anesthesia was induced. The abdomen was prepped and draped in usual sterile fashion. A 3 cm curvilinear incision at the hernia site was carried out with a scalpel. Electrocautery was used to dissect down to the fascial layer. Blunt dissection was used to dissect around the hernia defect. Skin was dissected off hernia sac using electrocautery. Hernia contents consisted of fat only and these were reduced into the abdominal cavity. Electrocautery was used to freshen up the fascial edges. A 2 cm fascial defect was found. A 4.[address] mesh was used to repair the fascial defect. The fascia was then closed anterior to the Ventralex ST mesh using continuous 2- 0 Ethibond. The mesh was fixed to the fascia by incorporating the flap with a few bites of the 2-0 Ethibond. Adequate hemostasis was achieved using electrocautery. The umbilicus was recreated using a 2-0 Vicryl by suturing the dermis to the fascia. The deep dermal layer was closed using 3-0 Vicryl. Skin was closed using subcuticular 4-0 Monocryl. Surgical glue was applied. The patient woke up from anesthesia without any complications.
[2025-04-21] MEDS: lidocaine-epi 1% 20 mL INJ 10 ML INJECTION (14:46)
[2025-04-21] MEDS: BUPivacaine 0.25% INJ 10 mL INJECTION (14:47)
[2025-04-21] MEDS: fentaNYL 50 mcg/mL INJ 2mL IVP (15:05)
[2025-04-21] MEDS: oxyCODONE 5 mg IR Tab/Cap PO (15:40)
--- NOTE | 2025-04-21 16:00 | ANE.PACU2 ---
Inpatient post-anesthesia follow up: Airway intact: Yes Vital signs: Temperature 97.6 F Pulse Rate 69 Respiratory Rate 17 Blood Pressure 158/99 Pulse Oximetry 99 Oxygen Delivery Me thod Room Air Oxygen Flow Rate 6 Fraction of Inspir ed Oxygen Hydration adequate: Yes Nausea and vomiting: No Pain level: 1 Mental status: Baseline
== END 2025-04-21 16:02 | disposition home or self-care (01) ==
PROVIDERS: PCP Nurse Practitioner Family; Visit Provider Student in an Organized Health Care Education/Training Program
PROC: 0WQF0ZZ Repair Abdominal Wall, Open Approach (ICD-10-PCS; CPT 49593; principal; 2025-04-21 14:40)
DX: K42.9 Umbilical hernia without obstruction or gangrene (principal); J44.9 Chronic obstructive pulmonary disease, unspecified; K21.9 Gastro-esophageal reflux disease without esophagitis; I49.9 Cardiac arrhythmia, unspecified; E07.9 Disorder of thyroid, unspecified; F31.81 Bipolar II disorder; F41.9 Anxiety disorder, unspecified; F17.290 Nicotine dependence, other tobacco product, uncomplicated
CPT/HCPCS: 49593; C1781; J1100; J1171; J2704; J3010; J3373; J3490; J7030; J7050; J9999

== ENCOUNTER 2025-05-10 15:09 | Emergency (ER) | payer OTHER, SELFPAY ==
[2025-04-13 11:01] VITALS: BP 128/80; BMI 20.8
[2025-05-10] VITALS (8 sets, daily range): BP systolic 141–203; BP diastolic 85–115; PULSE 75–87; RESP 16–18; TEMP 36.9; O2SAT 95–100; BMI 19.0
--- NOTE | 2025-05-10 15:41 | ED_ITS ---
Documented by User: NORMAN Hanson 05/10/25 16:04 HPI - Dental/Oral 2 General: Chief complaint: Dental/Oral Stated complaint: lt upper dental Time Seen by Provider: 05/10/25 15:14 Source: patient Mode of arrival: ambulatory Limitations: no limitations History of Present Illness: Patient is a 54-year-old female presents to ED today with complaint of left- sided upper dental infection. Patient states about a week ago she had a tooth to her left upper fracture. She states since then she has noticed pain and developing left-sided facial swelling. She complains of pressure overlying her left maxillary sinus region. She feels like the edema is starting to put pressure on her eye. She has not been running fevers. She arrives hypertensive and in significant discomfort. She states she is always hypertensive but does not take medications for this. She states she cannot afford dental care. MD Complaint: tooth pain and tooth injury Onset (ago): day(s) Duration: constant Severity: severe Severity scale (1-10): 10 Relieving factors: nothing Exacerbating factors: nothing Context: history of dental caries, trauma (mechanism) (tooth broke off) and poor dental care Associated symptoms: Denies fever(s) or odynophagia Treatment prior to arrival: none Related Data Home Medications ?Medication ?Instructions ?Recorded ?Confirmed ondansetron 4 mg disintegrating 4 mg PO PRN 04/20/25 0 05/03/25 tablet Previous Rx's ?Medication ?Instructions ?Recorded albuterol sulfate 90 mcg/actuation 1 inh inhalation QI D PRN shortness 08/08/23 aerosol inhaler of breath or wheezing #8.5 g romero albuterol 90 mcg-budesonide 80 2 inh inhalation 6XD OH N shortness 10/29/23 mcg/actuation HFA aerosol inhaler of breath #10.7 gram s (Airsupra) ketorolac 10 mg tablet 10 mg PO TID PRN pain #10 ta bs 03/27/25 hydrocodone 10 mg-acetaminophen 1 tab PO TID PRN pain #20 tabs 04/01/25 325 mg tablet omeprazole 40 mg capsule,delayed 40 mg PO DAILY #30 ca ps 04/15/25 release levofloxacin 750 mg tablet 750 mg PO DAILY 7 days #7 t abs 05/10/25 metronidazole 500 mg tablet 500 mg PO TID #30 tabs 08/24 Allergies Allergy/AdvReac Type Severity Reaction Status Date / Time Penicillins Allergy ALGY-Anaphy Verified 05/10/25 15:34 laxis Review of Systems 2 Const: Denies: fever(s), chills, body aches, fatigue or malaise Eyes: Denies: change in vision, blurry vision, photophobia, floaters or seeing flashes ENMT: Reports: dental pain and sinus pain; Denies: throat pain, odynophagia, hoarseness, ear discharge, nasal discharge or nasal congestion Card: Denies: chest pain Resp: Denies: dyspnea GI: Denies: nausea or vomiting Musc: Denies: neck pain Neuro: Denies: headache(s), dizziness or confusion PFSH ED 2 PFSH: Medical History Memory loss Headache Bipolar 2 disorder, major depressive episode SOHAIL (generalized anxiety disorder) No pertinent family history Surgical History H/O: hysterectomy S/P appendectomy Social History Smoking and tobacco/nicotine status: never used tobacco/nicotine Second hand smoke exposure: No Alcohol intake: never Substance/Drug Use: never Adopted: No Caregiver/support person: No Lives independently: Yes Household members: none Housing: House Marital status: / Number of children: 4 Highest education level completed: Some College, No Degree service: No Current occupational status: employed Physical Exam 2 Const: COMMON NORMALS: average body habitus, no limitations, healthy appearing, alert and well nourished GENERAL APPEARANCE: cooperative and in distress (appears uncomfortable ) HENMT: COMMON NORMALS: normocephalic and atraumatic HEAD & SCALP: n ormocephalic and atraumatic FACE & SINUS: sinus tenderness, erythema and edema; no crepitus, no ecchymosis and no fluctuance FACE & SINUS IMAGES: 1. edema/tenderness MOUTH: Normal oral and palatal mucosa present, lip normal, tongue normal and Normal salivary glands and ducts present TEETH & GINGIVA: Yes caries, Yes poor dentition and Yes other (overall widespread dental decay/disease) T HROAT: posterior oropharynx normal and tonsils normal Eye: COMMON NORMALS: Equal, round and reactive pupils present and EOMs intact bilaterally GENERAL EYE: appearance normal, both eyes and all related structures and normal light reflex PUPIL: Yes Equal, round and reactive pupils present DIRECT OPHTHALMOSCOPY: Yes normal light reflex Neck/C-Spine: COMMON NORMALS: no lymphadenopathy GENERAL: No anterior neck swelling and No submandibular swelling Resp: COMMON NORMALS: normal respiratory effort and clear to auscultation bilaterally AUSCULTATION: clear to auscultation bilaterally Cardio: COMMON NORMALS: regular rate and regular rhythm RATE: regular rate RHYTHM: regular rhythm Neuro: SENSORIUM/ORIENTATION: Yes alert Course 2 Vital Signs: Vital signs: Vital Signs Temperature 98.4 F 05/10/25 15:31 Pulse Rate 79 05/10/25 19:10 Respiratory Rate 18 05/10/25 19:10 Blood Pressure 141/85 05/10/25 19:10 Pulse Oximetry 98 05/10/25 19:10 Oxygen Delivery Me thod Room Air 05/10/25 16:32 MDM - Dental/Oral Lab Data 05/10/25 16:15 05/10/25 16:[address] 05/10/25 15:54 IMPRESSION: 1. 1.2 x 1.4 x 0.5 cm low-density fluid collection with peripheral enhancement is present along the anterior left aspect of the alveolar process of the maxilla. Findings concerning for developing abscess. Associated subcutaneous edema and swelling extends from the anterior margin of the left aspect of the alveolar process superiorly along the left aspect of the base of the nose and extends into the left infraorbital region. 2. Left upper canine tooth is broken. There is an associated lucency at the tooth root, more suggestive of tooth root abscess. There are numerous additional dental caries throughout all of the remaining teeth. Areas of lucency along several of the tooth roots likely correspond to dental caries in tooth root abscesses. 3. 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 Left vertebral artery is dominant and tortuous. 4. Mildly enlarged left submandibular and left upper cervical chain lymph nodes likely are reactive given the additional findings. Clinical follow-up is recommended. 5. Dental and/or maxillofacial surgical consultation is recommended. Laboratory Results WBC 11.40 10^3/uL (3.29-11.43) 05/10/25 16:15 RBC 3.36 10^6/uL (3.85-5.65) L 05/10/25 16:15 Hgb 11.20 g/dL (11.27-16.99) L 05/10/25 16:15 Hct 34.0 % (36-47) L 05/10/25 16:15 MCV 101.2 fl (85-98) H 05/10/25 16:15 MCH 33.3 pg (27-33) H 05/10/25 16:15 MCHC 32.9 g/dL (30-55) 05/10/25 16:15 RDW 12.8 % (12.1-15.1) 05/10/25 16:15 Plt Count 296 10^3/cmm (157-399) 05/10/25 16:15 MPV 9.4 fL (7.4-10.4) 05/10/25 16:15 Neut % (Auto) 77.5 % 05/10/25 16:15 Lymph % (Auto) 14.1 % 05/10/25 16:15 Owsley % (Auto) 6.3 % 05/10/25 16:15 Eos % (Auto) 1.3 % 05/10/25 16:15 Baso % (Auto) 0.4 % 05/10/25 16:15 Neut # (Auto) 8.83 10^3/uL (1.8-7.7) H 05/10/25 16:15 Lymph # (Auto) 1.6 10^3/uL (0.8-4.8) 05/10/25 16:15 Owsley # (Auto) 0.7 10^3/uL (0.2-0.9) 05/10/25 16:15 Eos # (Auto) 0.2 10^3/uL (0.0-0.8) 05/10/25 16:15 Baso # (Auto) 0.0 10^3/uL (0.0-0.1) 05/10/25 16:15 Nucleated RBC % (auto) 0 % 05/10/25 16:15 Nucleated RBCs # 0.0 /100WBC 05/10/25 16:15 Sodium 136 mmol/L (136-145) 05/10/25 16:15 Potassium 3.5 mmol/L (3.5-5.1) 05/10/25 16:15 Chloride 102 mmol/L (98-107) 05/10/25 16:15 Carbon Dioxide 22 mmol/L (22-29) 05/10/25 16:15 Anion Gap 15.5 (5-19) 05/10/25 16:15 BUN 11 mg/dL (6-20) 05/10/25 16:15 Creatinine 0.5 mg/dL (0.5-0.9) 05/10/25 16:15 GFR Calculation 128.6 mL/min (90-130) 05/10/25 16:15 Glucose 88 mg/dL (65-115) 05/10/25 16:15 Calculated Osmolality 281 mOsm/kg (285-295) L 05/10/25 16:15 Calcium 8.5 mg/dL (8.5-10.5) 05/10/25 16:15 Total Bilirubin 0.5 mg/dL (0.15-1.2) 05/10/25 16:15 AST 11 U/L (0-32) 05/10/25 16:15 ALT 6 U/L (0-33) 05/10/25 16:15 Alkaline Phosphatase 88 U/L (35-105) 05/10/25 16:15 Total Protein 6.5 g/dL (6.6-8.7) L 05/10/25 16:15 Albumin 3.9 g/dL (3.5-5.2) 05/10/25 16:15 Globulin 2.6 g/dL (1.3-4.6) 05/10/25 16:15 Discharge Plan Discharge Patient Disposition: Home Clinical Impression: Abscess, dental Condition: Stable Prescriptions: New levofloxacin 750 mg tablet 750 mg PO DAILY 7 Days Qty: 7 0RF metronidazole 500 mg tablet 500 mg PO TID Qty: 30 0RF No Action omeprazole 40 mg capsule,delayed release(DR/EC) 40 mg PO DAILY Qty: 30 0RF albuterol sulfate 90 mcg/actuation HFA aerosol inhaler 1 inh inhalation QID PRN (Reason: shortness of breath or wheezing) Qty: 8.5 2RF Airsupra 90-80 mcg/actuation HFA aerosol inhaler 2 inh inhalation 6XD PRN (Reason: shortness of breath) Qty: 10.7 11RF hydrocodone-acetaminophen 10-325 mg tablet 1 tab PO TID PRN (Reason: pain) Qty: 20 0RF ketorolac 10 mg tablet 10 mg PO TID PRN (Reason: pain) Qty: 10 0RF ondansetron 4 mg tablet,disintegrating 4 mg PO PRN Discharge Orders: Discharge ED (Routine); Ordered 05/10/25 Ordered By: Faiza Aquino Referrals: Audra De La Torre FNP-C [Primary Care Provider, Family Practice] Discharge Diet: Soft Mechanical and Full LIquid Discharge Activity: Resume usual activity Patient Instructions: Dental Abscess (ED), Opioid Safety, Pain Management, Patient Portal & Ricardo Instructions Activity Restrictions/Additional Instructions: Sleep sitting upright Please heat on this side of your face tonight and a.m. Nothing to eat or drink after midnight except a slight sip of water to take your antibiotics or pain medication Tomorrow, you will need to be in [place], [place] at [address] to see Dr[address] Knight. He is planning on a procedure/surgery to this area at 9:30 AM, so make sure you are there at least 15-30 minutes of early to fill out any paperwork. Phone number to Dr. Knight clinic is [phone] Caution on your analgesics. Return to ED for worsening pain, worsening redness, inability to open your mouth. Soft foods are clear liquids in the interim. Print Language: Armenian Coding Level of Care Code ED Strong Nitric Operator for Chg Fwd Documented by User: NORMAN Myrick 05/10/25 21:03 HPI - Dental/Oral 2 General: Chief complaint: Dental/Oral Stated complaint: lt upper dental Time Seen by Provider: 05/10/25 15:14 Related Data Home Medications ?Medication ?Instructions ?Recorded ?Confirmed ondansetron 4 mg disintegrating 4 mg PO PRN 04/20/25 0 05/03/25 tablet Previous Rx's ?Medication ?Instructions ?Recorded albuterol sulfate 90 mcg/actuation 1 inh inhalation QI D PRN shortness 08/08/23 aerosol inhaler of breath or wheezing #8.5 g romero albuterol 90 mcg-budesonide 80 2 inh inhalation 6XD OH N shortness 10/29/23 mcg/actuation HFA aerosol inhaler of breath #10.7 gram s (Airsupra) ketorolac 10 mg tablet 10 mg PO TID PRN pain #10 ta bs 03/27/25 hydrocodone 10 mg-acetaminophen 1 tab PO TID PRN pain #20 tabs 04/01/25 325 mg tablet omeprazole 40 mg capsule,delayed 40 mg PO DAILY #30 ca ps 04/15/25 release levofloxacin 750 mg tablet 750 mg PO DAILY 7 days #7 t abs 05/10/25 metronidazole 500 mg tablet 500 mg PO TID #30 tabs 08/24 Allergies Allergy/AdvReac Type Severity Reaction Status Date / Time Penicillins Allergy ALGY-Anaphy Verified 05/10/25 15:34 laxis PFSH ED 2 PFSH: Medical History Memory loss Headache Bipolar 2 disorder, major depressive episode SOHAIL (generalized anxiety disorder) No pertinent family history Surgical History H/O: hysterectomy S/P appendectomy Social History Smoking and tobacco/nicotine status: never used tobacco/nicotine Second hand smoke exposure: No Alcohol intake: never Substance/Drug Use: never Adopted: No Caregiver/support person: No Lives independently: Yes Household members: none Housing: House Marital status: / Number of children: 4 Highest education level completed: Some College, No Degree service: No Current occupational status: employed Physical Exam 2 HENMT: FACE & SINUS IMAGES: 1. edema/tenderness Course 2 Reevaluation(s): Reevaluation #1: Still having severe pain, morphine and Dilaudid did not help Consultations: Consultation #1: Discussed with Dr. Knight at [facility] with [facility]. He recommends going to his office at 9:30 AM tomorrow, n.p.o., head upright tonight to sleep, warm compress to that area tonight and in a.m. He also recommends dexamethasone 10 mg IV push. Vital Signs: Vital signs: Vital Signs Temperature 98.4 F 05/10/25 15:31 Pulse Rate 79 05/10/25 19:10 Respiratory Rate 18 05/10/25 19:10 Blood Pressure 141/85 05/10/25 19:10 Pulse Oximetry 98 05/10/25 19:10 Oxygen Delivery Me thod Room Air 05/10/25 16:32 MDM - Dental/Oral Medical Decision Making Patient is a 54-year-old female with recent dental fracture 1 week ago, swelling, worsening pain to her left jaw, inability to open her mouth, and severe pain. Morphine, Dilaudid did not seem to help her. She was remedicated with Dilaudid, Toradol, and Dr. Knight recommended dexamethasone. Recommendations from Dr. Knight with [facility], is n.p.o. after midnight for surgery in the morning, continue Levaquin, Flagyl. She was sent home with a Levaquin and Flagyl doses and the rest of her antibiotics were sent to the pharmacy. She was sent home with a single dose of ondansetron, and 3 doses of hydrocodone for pain. I explained to patient to sip water only when taking her medication otherwise nothing to eat or drink after midnight. Patient states understanding and will be at their office at 9:30 AM. She will return to ED for additional help. She will sleep upright, and add warm compress as per recommendations. Lab Data 05/10/25 16:15 05/10/25 16:[address] 05/10/25 15:54 IMPRESSION: 1. 1.2 x 1.4 x 0.5 cm low-density fluid collection with peripheral enhancement is present along the anterior left aspect of the alveolar process of the maxilla. Findings concerning for developing abscess. Associated subcutaneous edema and swelling extends from the anterior margin of the left aspect of the alveolar process superiorly along the left aspect of the base of the nose and extends into the left infraorbital region. 2. Left upper canine tooth is broken. There is an associated lucency at the tooth root, more suggestive of tooth root abscess. There are numerous additional dental caries throughout all of the remaining teeth. Areas of lucency along several of the tooth roots likely correspond to dental caries in tooth root abscesses. 3. 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 Left vertebral artery is dominant and tortuous. 4. Mildly enlarged left submandibular and left upper cervical chain lymph nodes likely are reactive given the additional findings. Clinical follow-up is recommended. 5. Dental and/or maxillofacial surgical consultation is recommended. Laboratory Results WBC 11.40 10^3/uL (3.29-11.43) 05/10/25 16:15 RBC 3.36 10^6/uL (3.85-5.65) L 05/10/25 16:15 Hgb 11.20 g/dL (11.27-16.99) L 05/10/25 16:15 Hct 34.0 % (36-47) L 05/10/25 16:15 MCV 101.2 fl (85-98) H 05/10/25 16:15 MCH 33.3 pg (27-33) H 05/10/25 16:15 MCHC 32.9 g/dL (30-55) 05/10/25 16:15 RDW 12.8 % (12.1-15.1) 05/10/25 16:15 Plt Count 296 10^3/cmm (157-399) 05/10/25 16:15 MPV 9.4 fL (7.4-10.4) 05/10/25 16:15 Neut % (Auto) 77.5 % 05/10/25 16:15 Lymph % (Auto) 14.1 % 05/10/25 16:15 Owsley % (Auto) 6.3 % 05/10/25 16:15 Eos % (Auto) 1.3 % 05/10/25 16:15 Baso % (Auto) 0.4 % 05/10/25 16:15 Neut # (Auto) 8.83 10^3/uL (1.8-7.7) H 05/10/25 16:15 Lymph # (Auto) 1.6 10^3/uL (0.8-4.8) 05/10/25 16:15 Owsley # (Auto) 0.7 10^3/uL (0.2-0.9) 05/10/25 16:15 Eos # (Auto) 0.2 10^3/uL (0.0-0.8) 05/10/25 16:15 Baso # (Auto) 0.0 10^3/uL (0.0-0.1) 05/10/25 16:15 Nucleated RBC % (auto) 0 % 05/10/25 16:15 Nucleated RBCs # 0.0 /100WBC 05/10/25 16:15 Sodium 136 mmol/L (136-145) 05/10/25 16:15 Potassium 3.5 mmol/L (3.5-5.1) 05/10/25 16:15 Chloride 102 mmol/L (98-107) 05/10/25 16:15 Carbon Dioxide 22 mmol/L (22-29) 05/10/25 16:15 Anion Gap 15.5 (5-19) 05/10/25 16:15 BUN 11 mg/dL (6-20) 05/10/25 16:15 Creatinine 0.5 mg/dL (0.5-0.9) 05/10/25 16:15 GFR Calculation 128.6 mL/min (90-130) 05/10/25 16:15 Glucose 88 mg/dL (65-115) 05/10/25 16:15 Calculated Osmolality 281 mOsm/kg (285-295) L 05/10/25 16:15 Calcium 8.5 mg/dL (8.5-10.5) 05/10/25 16:15 Total Bilirubin 0.5 mg/dL (0.15-1.2) 05/10/25 16:15 AST 11 U/L (0-32) 05/10/25 16:15 ALT 6 U/L (0-33) 05/10/25 16:15 Alkaline Phosphatase 88 U/L (35-105) 05/10/25 16:15 Total Protein 6.5 g/dL (6.6-8.7) L 05/10/25 16:15 Albumin 3.9 g/dL (3.5-5.2) 05/10/25 16:15 Globulin 2.6 g/dL (1.3-4.6) 05/10/25 16:15 All radiology interpretation(s) finalized by discharge Discharge Plan Discharge Patient Disposition: Home Clinical Impression: Abscess, dental Condition: Stable Prescriptions: New levofloxacin 750 mg tablet 750 mg PO DAILY 7 Days Qty: 7 0RF metronidazole 500 mg tablet 500 mg PO TID Qty: 30 0RF No Action omeprazole 40 mg capsule,delayed release(DR/EC) 40 mg PO DAILY Qty: 30 0RF albuterol sulfate 90 mcg/actuation HFA aerosol inhaler 1 inh inhalation QID PRN (Reason: shortness of breath or wheezing) Qty: 8.5 2RF Airsupra 90-80 mcg/actuation HFA aerosol inhaler 2 inh inhalation 6XD PRN (Reason: shortness of breath) Qty: 10.7 11RF hydrocodone-acetaminophen 10-325 mg tablet 1 tab PO TID PRN (Reason: pain) Qty: 20 0RF ketorolac 10 mg tablet 10 mg PO TID PRN (Reason: pain) Qty: 10 0RF ondansetron 4 mg tablet,disintegrating 4 mg PO PRN Discharge Orders: Discharge ED (Routine); Ordered 05/10/25 Ordered By: Faiza Aquino Referrals: Audra De La Torre FNP-C [Primary Care Provider, [facility]] Discharge Diet: Soft Mechanical and Full LIquid Discharge Activity: Resume usual activity Patient Instructions: Dental Abscess (ED), Opioid Safety, Pain Management, Patient Portal & Ricardo Instructions Activity Restrictions/Additional Instructions: Sleep sitting upright Please heat on this side of your face tonight and a.m. Nothing to eat or drink after midnight except a slight sip of water to take your antibiotics or pain medication Tomorrow, you will need to be in [place], [place] at [address] to see Dr[address] Knight. He is planning on a procedure/surgery to this area at 9:30 AM, so make sure you are there at least 15-30 minutes of early to fill out any paperwork. Phone number to Dr. Knight clinic is [phone] Caution on your analgesics. Return to ED for worsening pain, worsening redness, inability to open your mouth. Soft foods are clear liquids in the interim. Print Language: Armenian Coding Level of Care Code ED Strong Nitric Operator for Chris Wills
--- NOTE | 2025-05-10 15:54 | CTR_ITS ---
PROCEDURE INFORMATION: Exam: CT Maxillofacial With Contrast Exam date and time: 05/10/2025 4:04 PM Age: 54 years old Clinical indication: Face pain; Additional info: L sided dental infection TECHNIQUE: Imaging protocol: Computed tomography of the face with contrast. Radiation optimization: All CT scans at this facility use at least one of these dose optimization techniques: automated exposure control; mA and/or kV adjustment per patient size (includes targeted exams where dose is matched to clinical indication); or iterative reconstruction. Contrast material: OMNIPAQUE 350; Contrast volume: 100 ml; Contrast route: INTRAVENOUS (IV); COMPARISON: [place] thyroid [id number] 09/17/2022 12:31 PM RADIATION DOSE METRICS: Total DLP (mGy-cm): 601.08 FINDINGS: Brain: The visualized portion of the brain appears unremarkable. This exam is not optimized to evaluate the brain. Paranasal sinuses: Mild mucosal thickening within the right and left maxillary sinus and along the ethmoid air cells. The frontal sinuses are hypo pneumatized but otherwise clear. Sphenoid air cells are essentially clear. Orbital cavities: The globes appear symmetric. No intraconal fluid collection or inflammatory change. Mastoid air cells: Visualized portion of the mastoid air cells are clear. Ossicles appear symmetric. Teeth: Anterior left canine tooth (tooth #11) appears foreshortened and likely is broken. Lucency at the tooth root of the left upper canine likely corresponds to a small tooth root abscess. There is no fracture extending through the alveolar process or erosion through the alveolar process. There are numerous additional erosions involving the anterior lower teeth and anterior upper teeth compatible with numerous additional dental caries. Tooth root of an upper anterior molar on the left is completely absent and eroded, compatible with probable tooth root abscess versus dentigerous cyst. Posterior left lower molar also demonstrates lucency at the tooth root and associated dental dee. Salivary glands: Parotid glands appear symmetric. Submandibular glands appear symmetric. The sublingual glands appear enlarged, greater on the right. Musculature within the floor of the mouth appear symmetric. Pharynx: There is fullness of the palatine tonsils which appear symmetric. Hypopharynx is patent. Epiglottis appears normal. The airway is patent. Lymph nodes: Small submental lymph nodes are present. These are not enlarged by size criteria. Asymmetrically enlarged left submandibular lymph nodes are present which more likely are reactive. There are a few mildly prominent left upper cervical chain lymph nodes which more likely are reactive. Vasculature: Visualized portion of the right and left carotid arteries are patent. Right and left jugular vein are patent. The left vertebral artery is dominant and tortuous. Portions of the right vertebral artery are not well visualized or may potentially be absent. 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 Stenosis or potential prior dissection with reconstituted flow is also considered within the right vertebral artery. Bones: No fracture or other bony erosion involving the mandible. Remainder of the facial bones appear intact. Probable old fracture involving the nasal bone. No acute fracture. Multilevel degenerative changes are present throughout the visualized portion of the upper cervical spine. Multilevel neural foraminal narrowing secondary to uncovertebral hypertrophy and bony spurring. Soft tissues: 1.2 x 1.4 x 0.5 cm low-density fluid collection with peripheral enhancement is present along the anterior left aspect of the alveolar process of the maxilla. Findings concerning for developing abscess. Subcutaneous edema and swelling extends from the anterior margin of the left aspect of the alveolar process superiorly along the left aspect of the base of the nose and left infraorbital region. The muscles of mastication appear symmetric. CT/CT facial bones w con [id number] IMPRESSION: 1. 1.2 x 1.4 x 0.5 cm low-density fluid collection with peripheral enhancement is present along the anterior left aspect of the alveolar process of the maxilla. Findings concerning for developing abscess. Associated subcutaneous edema and swelling extends from the anterior margin of the left aspect of the alveolar process superiorly along the left aspect of the base of the nose and extends into the left infraorbital region. 2. Left upper canine tooth is broken. There is an associated lucency at the tooth root, more suggestive of tooth root abscess. There are numerous additional dental caries throughout all of the remaining teeth. Areas of lucency along several of the tooth roots likely correspond to dental caries in tooth root abscesses. 3. 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 Left vertebral artery is dominant and tortuous. 4. Mildly enlarged left submandibular and left upper cervical chain lymph nodes likely are reactive given the additional findings. Clinical follow-up is recommended. 5. Dental and/or maxillofacial surgical consultation is recommended.
[2025-05-10] MEDS: iohexol 350 mg/mL 500 mL Btl (per mL) IV (16:06)
[2025-05-10] MEDS: metroNIDAZOLE IV 500 MG/100 ML PREMIX 100 MG IV (16:17)
[2025-05-10 16:24] LABS: Hematocrit 34.0 % (36-47); Hemoglobin 11.20 g/dL (11.27-16.99); Mean Corpuscular HGB Conc 32.9 g/dL (30-55); Mean Corpuscular Hemoglobin 33.3 pg (27-33); Mean Corpuscular Volume 101.2 fl (85-98); Nucleated Red Blood Cells % 0 %; Platelet Count 296 10^3/cmm (157-399); Red Blood Count 3.36 10^6/uL (3.85-5.65); White Blood Count 11.40 10^3/uL (3.29-11.43)
[2025-05-10] MEDS: levofloxacin-dextrose 5 % 750 MG/150 ML PREMIX 100 MG IV (16:24)
[2025-05-10] MEDS: ondansetron 2 mg/ML SDV 2 mL 4 MG IVP (16:26)
[2025-05-10] MEDS: morphine 4 mg/mL SDV 1 mL IVP (16:26)
[2025-05-10 16:42] LABS: Alanine Aminotransferase 6 U/L (0-33); Albumin Level 3.9 g/dL (3.5-5.2); Alkaline Phosphatase 88 U/L (35-105); Aspartate Amino Transferase 11 U/L (0-32); Blood Urea Nitrogen 11 mg/dL (6-20); Calcium 8.5 mg/dL (8.5-10.5); Carbon Dioxide 22 mmol/L (22-29); Chloride 102 mmol/L (98-107); Creatinine Clr Calc Pharmacy 99.3543; Globulin 2.6 g/dL (1.3-4.6); Glucose 88 mg/dL (65-115); Osmolality Calculated 281 mOsm/kg (285-295); Sodium 136 mmol/L (136-145); Total Protein 6.5 g/dL (6.6-8.7)
[2025-05-10 16:46] LABS: Anion Gap 15.5 (5-19); Potassium 3.5 mmol/L (3.5-5.1)
[2025-05-10] MEDS: hyDRALAzine 20 mg/mL INJ 1 mL 10 MG IVP (16:59)
[2025-05-10] MEDS: HYDROmorphone 0.5 MG/0.5 ML INJ IVP (17:04)
[2025-05-10] MEDS: HYDROmorphone 0.5 MG/0.5 ML INJ 1 MG IVP (18:01)
[2025-05-10] MEDS: ondansetron hcl ODT 4 mg Tab PO (18:57)
[2025-05-10] MEDS: HYDROcodone-acetaminophen 10-325 mg Tablet 3 TAB PO (19:02)
--- OUTSIDE RECORDS SUMMARY | 2025-05-12 11:45 | XMS_ITS | Clinical Summary ---
Author Organization [employer] Address [address] [facility] Attn: Epic Prelude ADT [place] [address] Care Team Providers Care Continuing Education Instructor Name Role Phone BrantleyPriyanka Heidi GIVENS Primary Care Provider [phone] Allergies Active Allergy Reactions Criticality Noted Date [...] by mouth 2 times daily. 10/16/2015 Active hcdaz-bhmjk-xcc ymyx-pramoxine (NEOSPORIN PLUS) 3.5-500-10,000 fd-apvy-yxxk/g Ointment Apply to affected area daily. 10/16/2015 [...] on file Legal Sex Female 5:26 AM INFECTION PREVENTIONIST Gender Identity Not on file Sexual Orientation Not on file Last Filed Vital Signs Vital Sign Reading Time Taken Comments Blood Pressure 139/85 10/20/2015 11:47 AM INFECTION PREVENTIONIST Pulse 79 10/20/2015 11:47 AM INFECTION PREVENTIONIST Temperature 37 C (98.6 F) 10/20/2015 11:47 AM INFECTION PREVENTIONIST Respiratory Rate 18 10/20/2015 11:47 AM INFECTION PREVENTIONIST Oxygen Saturation - - Inhaled Oxygen Concentration - - Weight 52 kg (114 lb 10.2 oz) 10/20/2015 11:47 A M INFECTION PREVENTIONIST Height 157.5 cm (5' 2 ) 10/20/2015 11:47 AM INFECTION PREVENTIONIST Body Mass Index 20.97 10/20/2015 11:47 AM INFECTION PREVENTIONIST Plan of Treatment Health Maintenance Due Date [...] (#1) 2025 Medical Devices Implanted Type Area Steel Erector Apprentice Device Identifier Shelf Expiration Date Model / Serial / Lot Pins Description:Pt states she levi s pins in her ankle. Care Teams Continuing Education Instructor Relationship Specialty Start Date End Date Priyanka Brantley APN [facility] [address] [id number] PCP - General NURSE PRACTITIONER 02/06/14
--- OUTSIDE RECORDS SUMMARY | 2025-05-12 11:45 | XMS_ITS | Clinical Summary ---
Author Organization [facility] Address [address] [facility] [address] [place] [address] Phone Care Team Providers Care Re Examiner Name Role Phone Fercho, Priyanka Gordon CHON Primary Care Provider [phone] Allergies Active Allergy Reactions Criticality Noted Date [...] mg by mouth 2 times daily. Active ibquk-ngvcj-haq ymyx-pramoxine (NEOSPORIN PLUS) 3.5-500-10,000 zh-qipw-mycr/g Ointment Apply to affected area daily. 10/16/2015 [...] Comments Blood Pressure 139/85 10/20/2015 11:47 AM CHOIR LEADER Pulse 79 10/20/2015 11:47 AM CHOIR LEADER Temperature 37 C (98.6 F) 10/20/2015 11:47 AM CHOIR LEADER Respiratory Rate 18 10/20/2015 11:47 AM CHOIR LEADER Oxygen Saturation 99% 10/20/2015 11:47 AM CHOIR LEADER Inhaled Oxygen Concentration - - Weight 52 kg (114 lb 10.2 oz) 10/20/2015 11:47 A M CHOIR LEADER Height 157.5 cm (5' 2 ) 10/20/2015 11:47 AM CHOIR LEADER Body Mass Index 20.97 10/20/2015 11:47 AM CHOIR LEADER Plan of Treatment Health Maintenance Due Date [...] (#1) 2025 Medical Devices Implanted Type Area Custom Frame Assembler Device Identifier Shelf Expiration Date Model / Serial / Lot Pins Description:Pt states she levi s pins in her ankle. Insurance [address] [place] [id number] [place] Care Teams Re Examiner Relationship Specialty Start Date End Date Priyanka Brantley APN [address] [place] [id number] PCP - General NURSE PRACTITIONER 02/06/14
== END 2025-05-10 19:11 | disposition home or self-care (01) ==
PROVIDERS: Emergency Provider Physician Assistant; PCP Nurse Practitioner Family
DX: K04.7 Periapical abscess without sinus (principal)
CPT/HCPCS: 70487; 80053; 85025; 96374; 96375; 96376; 99285; J0360; J1100; J1171; J1885; J1956; J2270; J2405; J3490; J9999; Q0162

== ENCOUNTER → 2025-05-18 15:23 | Outpatient (BNVA) | payer OTHER, SELFPAY ==
[2025-04-13 11:01] VITALS: BP 128/80; BMI 20.8
== END ==
PROVIDERS: PCP Nurse Practitioner Family; Visit Provider Nurse Practitioner Family
DX: I10 Essential (primary) hypertension (principal)
CPT/HCPCS: 80053; 83036; 84443